=== PATIENT | female | born 1965 | race Caucasian/White ===

== ENCOUNTER 2021-03-05 09:04 | Observation (INO) | payer MEDICARE, MEDICAID, SELFPAY ==
[2021-03-02 12:41] VITALS: BMI 41.5
[2021-03-04] VITALS (16 sets, daily range): BP systolic 130–157; BP diastolic 82–116; PULSE 54–93; RESP 12–20; TEMP 36.2–36.8; O2SAT 90–98; BMI 41.5
--- NOTE | 2021-03-04 08:00 | PM.PREOP ---
Pre-operative Note COVID-19 COVID-19 status: Negative Result date/Date tested (Pos, Neg/Pending): 03/02/21 Interval Note History & Physical reviewed/Exam performed by Physician: Yes Changes to H&P: No
[2021-03-04] MEDS: LACTATED RINGERS 1,000 ML 42 ML IV ×2 (08:19→12:44)
[2021-03-04] MEDS: CEFAZOLIN 1 GM VIAL 2 GM IV ×2 (09:24→16:01)
--- NOTE | 2021-03-04 09:32 | SUR.OPER ---
Prone on spine table, head in foam head support, padded chest and pelvic supports, gel pad at knees, lower legs supported by pillows; nipples, genitalia and toes free of pressure, arms secured on foam padded arm boards at <90 degrees abduction. Tape over blanket at thigh secured to table.
[2021-03-04] MEDS: BUPIVACAINE 0.25% W/ EPI 30 ML VIAL INJ (09:49)
[2021-03-04] MEDS: BUPIVACAINE LIPOSOME 266 MG/20 ML VIAL INJ (09:50)
--- NOTE | 2021-03-04 12:58 | DI.RAD.S_ITS ---
PROCEDURE: XR LUMBAR SPINE 2-3V INDICATIONS: L4-5, L5-S1 TLIF. TECHNIQUE: 3 views of the lumbar spine were acquired. COMPARISON: None. FINDINGS: Spot fluoroscopic intraoperative images demonstrating paraspinal jeimy and pedicle screw fixation from L4-S1. There are interbody cage grafts at L4-L5 and L5-S1. Expected intraoperative alignment. Dictated by: Daniel Bass M.D. on 03/04/2021 at 13:16 Approved by: Daniel Bass M.D. on 03/04/2021 at 13:17
--- NOTE | 2021-03-04 13:00 | P.OP_ITS ---
Operative Date/Time/Diagnoses Date of procedure: 03/04/21 Time of procedure: 08:45 Pre-op diagnosis: 1. L4-5, L5-S1 spondylisthesis 2. L4-5, L5-S1 spinal stenosis with radiculopathy Post-op diagnosis: same Procedure & Clinicians Procedure: 1. L4-5, L5-S1 Postero-lateral and posterior interbody fusion 2. L4-5, L5-S1 interbody cage placement. 3. L4-5, L5-S1 decompressive laminectomy with bilateral facetecomies 4. L4-5, L5-S1 Posterior segmental instrumentation 5. [place] of bone marrow from iliac crest 6. Utilization of microsurgical technique and operating microscope Same procedure as scheduled: No Indications: Patient has been having chronic back pain and worsening lumbar radiculopathy. Patient failed multiple conservative management with worsening pain weakness and numbness in her lower extremity. Patient has been having difficulty performing activity of daily living. After discussing risks benefits of treatment options, patient elected proceed with surgery. Surgeon: Richard Conrad Monumental Stonemason: Yony Reese Click Yes if Unassisted: No Anesthesia Type: General Operative Notes Closure Type: primary Specimen(s): none sent Prosthetic devices, grafts, tissues, transplants, or devices: Globus revolve screws, Rise cages Applied: catheter Estimated Blood Loss (mL): 200 Procedure in detail: Patient was seen in the preoperative area. Risks and benefits of the surgery was discussed with the patient. Informed consent was obtained from the patient and placed in the chart. Surgical site was marked. Patient was taken to the operative room. General anesthesia was administered. Prophylactic antibiotic was given to the patient less than 30 min before the incision was made. Patient was placed into a prone position on the Vaibhav table. Patient's back was then prepped and draped in the sterile fashion. Time- out was performed at this time. Using AP and lateral C-arm imaging the interval between L4-S1 was identified and marked on patient's back. A 2 inch incision 2 in from midline was made on the right side first. The fascia was incised in line with skin incision. Globus MARS retractors was placed inside the incision and docked onto the L4 and L5 lamina. Using microsurgical technique and operating microscope, a L4 and L5 laminectomy and L4-5 L5-S1 facetectomy was performed using a Kerrison rongeur. During the process of decompression more than 75% of bilateral L4-5 L5-S1 facets were removed in order to decompress the spinal canal and the lateral recess. The L4-5 L5-S1 level was grossly unstable after the decompression was completed and requiring the fusion procedure. The disc space at L4-5, L5-S1 was identified. And a total diskectomy was performed at L4-5, L5-S1 level. The endplates were decorticated using a rasp and shaver. The total diskectomy and decortication was performed at L4-5, L5-S1 level in order to to accomplish a L4- 5, L5-S1 fusion. The local bone from the laminectomy and facetectomy was saved for local bone grafting. After the total diskectomy and decortication was completed, Trifecta bone graft material was combined with local bone that was harvested earlier. At this time, a separate skin is incision was made over the iliac crest. A Jamshidi needle was inserted into the iliac crest through a separate skin incision. 5 cc of bone marrow aspiration was obtained through the separate skin incision using a Jamshidi needle from the iliac crest. The bone marrow aspiration was combined with local bone and the Trifecta bone grafting material. The bone grafting material was placed into the L4-5, L5-S1 interbody space along with two cages, one expandable cage at each level. The cages were expanded to their maximum height using the torque limiting screwdriver. At this time a mirror image incision was made on the left side. The fascia was incised in line with the skin incision. Globus MARS retractor was inserted and docked onto the L4-5, L5-S1 posterolateral gutter. Using the power drill, posterior-lateral decortication was performed at L4-5, L5-S1 level until b leeding cortical bone was identified. The remaining bone grafting material was placed into the L4-5 L5-S1 posterior lateral gutter he order to accomplish posterolateral fusion at the L4-5 L5-S1 levels. Using the double C-arm technique, pedicle screws were placed into the L4, L5, S1 pedicles bilaterally. This was done by placing the Jamshidi needle into the pedicles, then placing the guidewires over the Jamshidi needle, and finally placing the cannulated screws over the guidewires bilaterally. After the pedicle screws were placed, 2 titanium rods was locked into the heads of the pedicle screws using locking caps and torque limiting screwdriver. Total 6 pedicles screws were placed. Threaded reducers were used to reduce the patient's spondylolisthesis. An appropriate reduction and maintenance of reduction was accomplished using the hardware placed. After all the hardware was placed, and confirmed with AP and lateral C-arm imaging, the wound was then irrigated with sterile normal saline and packed with Ray-Trudy gauze for 3 min to accomplish hemostasis. After the gauze was removed the deep fascia was closed with #1 Vicryl suture. The subcutaneous layer was closed with 2-0 Vicryl. The skin was closed with skin aashish. Patient tolerated the procedure well. There were no complications. Complications: none Post-operative Condition: stable Disposition: PACU Plan for aftercare: Admit to inpatient hospital
[2021-03-04] MEDS: fentaNYL 100 MCG/2 ML INJ IV ×2 (13:28→13:33)
[2021-03-04] MEDS: LORazepam 2 MG/ML INJ 0.25 MG IV ×2 (13:40→13:41)
[2021-03-04] MEDS: ACETAMINOPHEN 325 MG TABLET 975 MG PO (13:55)
[2021-03-04] MEDS: GABAPENTIN 300 MG CAPSULE PO (13:56)
[2021-03-04] MEDS: OXYCODONE IR 5 MG TABLET 10 MG PO ×3 (13:56→21:01)
[2021-03-04] MEDS: SODIUM CHLORIDE 0.9% 1,000 ML 100 ML IV (16:02)
[2021-03-04] MEDS: HYDROMORPHONE 0.5 MG INJ IV ×2 (17:21→21:05)
[2021-03-04] MEDS: OXYCODONE ER 10 MG TAB 20 MG PO (21:00)
[2021-03-04] MEDS: TRAZODONE 100 MG TABLET 300 MG PO (21:01)
[2021-03-04] MEDS: SENNOSIDES 8.6 MG TABLET 17.2 MG PO (21:01)
[2021-03-04] MEDS: GABAPENTIN 300 MG CAPSULE 600 MG PO (21:01)
[2021-03-04] MEDS: DOCUSATE 100 MG CAPSULE PO (21:01)
[2021-03-04] MEDS: METOPROLOL IR 50 MG TABLET PO (21:01)
[2021-03-05] VITALS (8 sets, daily range): BP systolic 100–124; BP diastolic 50–79; PULSE 60–84; RESP 14–18; TEMP 36.2–38.2; O2SAT 92–98
[2021-03-05] MEDS: SODIUM CHLORIDE 0.9% 1,000 ML 100 ML IV (00:35)
[2021-03-05] MEDS: CEFAZOLIN 1 GM VIAL 2 GM IV (00:35)
[2021-03-05] MEDS: HYDROMORPHONE 0.5 MG INJ IV ×2 (00:56→15:48)
[2021-03-05 06:33] LABS: Hematocrit 41.5 % (36-46); Hemoglobin 13.4 g/dL (12.0-16.0)
--- NOTE | 2021-03-05 08:16 | PM.PNPO.1 ---
Subjective Subjective Date Patient Seen: 03/05/21 Time Patient Seen: 08:17 Interval history: Patient states her pain is currently mild. Had more moderate to severe pain late last night early this morning. No fever, chills. No nausea, vomiting. Denies being short of breath or having any chest pain. Exam Vital Signs (past 8 hours): - 03/05/21 00:50 03/05/21 05:57 Temperature 97.9 F 97.5 F L Pulse Rate 80 75 Respiratory Rate 18 16 Blood Pressure 119/79 116/76 Pulse Oximetry 95 96 Oxygen Delivery Method Nasal Cannula Oxygen Flow Rate 4 Narrative Exam Narrative: 55-year-old female resting comfortably in no apparent distress. BMI is 41.5. Patient is drowsy and falls back to sleep easily. She does stay awake long enough to answer questions. Lumbar dressing is Clean, dry, intact.. Motor functions intact bilateral lower extremities. Sensation grossly intact to light touch bilateral lower extremities. Const Nutritional Appearance: obese Objective Labs Result Diagrams: 03/05/21 06:05 Labs: Laboratory Results - last 24 hr 03/05/21 06:05 Hgb 13.4 Hct 41.5 PFSH Medical History Arthritis BMI 40.0-44.9, adult Depression HTN (hypertension) Obesity KEVIN (obstructive sleep apnea) Panic attacks Spinal stenosis Surgical History History of surgery History of surgery Hx of cholecystectomy Social History household members: family Smoking Status: Current every day smoker alcohol intake: current Assessment & Plan Post-op Postoperative Procedures: Procedures Operation Date: 03/04/21 08:45 Actual Procedure Side Surgeon p L4-5, L5-S1 TLIF with posterior instrumentation Richard Conrad MD Postoperative day: 1 Postoperative status narrative: Patient's stable status post L4-L5, L5-S1 fusion Postoperative plan: routine post-op care Postoperative plan narrative: Mobilize with physical therapy. Limit bending, twisting, lifting. Patient is rather drowsy this morning likely due to pain meds. She has not yet had therapy. Continue Guerra until she is more mobile. With history of sleep apnea and currently on 4 L of oxygen per nasal cannula respiratory consultation has been ordered. Disposition home 1-2 days. Quality VTE Deep Vein Thrombosis/Pulmonary Embolism Present on Admission: No
--- NOTE | 2021-03-05 09:44 | PC.NURSE ---
Pt is very sleepy this am. She opens her eyes when her name is called and makes eye contact but is quickly back to sleep. She is on 3L O2 via nasal cannula with O2 sats 96%. Her daughter does report a history of known sleep apnea. Narcotic pain medications are held this am until pt is more awake.
--- NOTE | 2021-03-05 10:25 | PT.IIE ---
Current Diagnoses Spondylolisthesis, lumbar region (03/05/21) Other spondylosis with radiculopathy, lumbosacral region (03/05/21) Spinal stenosis, lumbar region without neurogenic claudication (03/05/21) Surgery Performed Operation Date: 03/04/21 08:45 Actual Procedures p L4-5, L5-S1 TLIF with posterior instrumentation - Richard Conrad MD Medical History (Last Reviewed 03/05/21 @ 08:20 by Neville Berrios PA-C) Arthritis BMI 40.0-44.9, adult Depression HTN (hypertension) Obesity KEVIN (obstructive sleep apnea) Panic attacks Spinal stenosis Physical Therapy Inpatient Evaluation/Re-Eval M1 PT/OT-IP Prior Functional Status Start: 03/05/21 12:18 Freq: NEEDED Status: Active Protocol: Document 03/05/21 10:25 AB (Rec: 03/05/21 12:27 AB [id number]) Medical Review Prior Functional Status Medical History Reviewed Yes Communication pt is lethargic and unable to respond to questions Mobility and Gait unable to obtain info Social History Additional Social History Comment pt is very lethargic and unable to answer questions M2 PT-IP Current Condition Start: 03/05/21 12:18 Freq: NEEDED Status: Active Protocol: Document 03/05/21 10:25 AB (Rec: 03/05/21 12:27 AB [email or web address]) Physical Therapy Current Condition Current Condition Evaluation Date 03/05/21 Treatment Diagnosis s/p L4-5, L5S1 fusion/lami; difficulty in walking Onset Date 03/04/21 Precautions Lumbar Precautions Log Roll,No Twisting,Limit Bending,Lifting Restriction of 10 lbs,Gait Belt above Incisional Area Other Precautions falls M3 PT-IP Subjective Start: 03/05/21 12:18 Freq: NEEDED Status: Active Protocol: Document 03/05/21 10:25 AB (Rec: 03/05/21 12:27 AB [email or web address]) Subjective Physical Therapy Visit Type Type Initial Evaluation Visit Start Time 10:25 Visit Stop Time 10:55 Total Visit Minutes 30 Notes nurse informed PT that pt is lethargic but was not given any pain meds from this morning to cause drowsiness. Number of MEDICAL EDUCATION COORDINATOR Visits 0 M4 PT-IP Mobility and Gait Start: 03/05/21 12:18 Freq: NEEDED Status: Active Protocol: Document 03/05/21 10:25 AB (Rec: 03/05/21 12:27 AB [email or web address]) PT-Bed Mobility Assessment Rolling Type of Rolling Log Rolling Level of Assist Maximal Assistance,2 Person Assistance Supine to Sit Supine to Sit Total Assistance,Bedrails Sit to Supine Sit to Supine Total Assistance,2 Person Assistance Scooting Scooting to Edge of Bed Dependent Scooting Up and Down in Bed Dependent PT-Transfer Assessment Comments Mobility Comments checked on pt and pt is lethargic. can open eyes as directed but unable to answer questions. Attempted to mobilize pt to prevent deconditioning. BP in supine: 98/52. nurse is aware. NAC in room to assist. completed log roll supine to sit total Ax 2 and max cues. pt was able to sit on EOB max A x 1-2 and max cues. BP in sittin/57. pt unable to sit by herself and continues to be lethargic. Tolerated ~ 5 min of sitting on EOB. assisted back to bed. total Ax 2 for sit to supine log roll. positioned pt in bed total A x 2 and max cues. call light and table placed within reach. PT-Balance Assessment Sitting Balance and Reactions Static Sitting Balance Ability Poor Dynamic Sitting Balance Ability Poor Standing Balance and Reactions Device Used n/t M5 PT-IP Objective Assessments Start: 03/05/21 12:18 Freq: NEEDED Status: Active Protocol: Document 03/05/21 10:25 AB (Rec: 03/05/21 12:27 AB [email or web address]) Orientation Orientation/Cognition Level of Alertness Lethargic Gross Range of Motion Lower Extremity ROM Assessment Within Functional Limits Muscle Tone Muscle Tone WNL Yes M6 PT-IP Treatment Start: 03/05/21 12:18 Freq: NEEDED Status: Active Protocol: Document 03/05/21 10:25 AB (Rec: 03/05/21 12:27 AB [email or web address]) Physical Therapy Treatment Education Education Provided Precautions,Safety M7 PT-IP Assessment and Plan Start: 03/05/21 12:18 Freq: NEEDED Status: Active Protocol: Document 03/05/21 10:25 AB (Rec: 03/05/21 12:27 AB [email or web address]) PT Summary Assessment and Plan Potential Rehabilitation Potential Fair Status of Condition at Evaluation Evolving Summary Impairments Pain,ROM,Strength,Balance, Coordination,Sensation,Tone, Cognition,Bed Mobility, Transfers,Gait,Activity Tolerance Assessment Summary pt is letheragic and unable to participate much with PT. will need further assessment to determine safe d/c plan. Goals Bed Mobility Goal Standby Assistance Transfer Goal Standby Assistance,Front Wheeled Walker Gait Goal Standby Assistance,Front Wheel Walker Gait Distance 150 Days to Meet Goals 5 Frequency of Treatment Frequency Of Treatment Twice a Day Treatment Plan Physical Therapy Treatment Plan Bed Mobility Training,Transfer Training,Gait Training, Therapeutic Exercise,Balance Retraining,Post Op Education, Discharge Planning,Hot or Cold Pack,Neuromuscular Re-ed, Coordination Retraining,Manual Therapy Precautions Lumbar Precautions Log Roll,No Twisting,Limit Bending,Lifting Restriction of 10 lbs,Gait Belt above Incisional Area Recommendations To Nursing Amount of Assist Needed PT/OT Assist Only,Mechanical Lift Discharge Recommendations PT Discharge Recommendations SNF Rehab,Home vs SNF Transportation Needs at Discharge Wheelchair/Cabulance,Stretcher /Ambulance
[2021-03-05] MEDS: VENLAFAXINE ER 75 MG CAP 112.5 MG PO (11:07)
--- NOTE | 2021-03-05 11:20 | CM.DANOTE ---
DCP: Case received, EMR reviewed and met with patient. DaughterDanay was in the room, as well as grandsonJimmy. Introduced self and role. Patient had just woken up. Was able to get some information regarding patient's baseline activity status prior to her surgery, as well as her current living situation. DCP assessment completed with information currently available. Patient is a 55 year old female who admitted yesterday morning to the care of the orthopedic team. PCP: Dr. Morales. Payer: confirmed: [facility]/Medicaid. Patient came to the hospital via private vehicle for a surgical procedure. She had posteo lateral and posterior interbody fusion secondary to history of chronic back pain. Patient also has chronic leg pain as well. Was able to meet with patient, and daughterElizabeth and grandson Jimmy, who were at bedside. Patient had been sleeping most of the morning, and had just woken up. Confirmed that patient resides in [place] with grandJimmy benitez, but also lives in [place]. She is independent at her baseline. She has not yet worked with P.T. P: DCP to continue to follow. Plan is for patient to discharge home when medically stable, could be tomorrow, and after she is cleared by P.T. She had not yet worked with P.T. as of yet, due to some sedation. Liliana Sanchez RN/Fleet Maintenance Foreman
--- NOTE | 2021-03-05 11:23 | OT.IPNOTE ---
Attempted to see pt for OT eval, per nursing pt still not very alert so would be best to check on pt in PM.
--- NOTE | 2021-03-05 13:10 | PT.IPTN ---
Current Diagnoses Spondylolisthesis, lumbar region (03/05/21) Other spondylosis with radiculopathy, lumbosacral region (03/05/21) Spinal stenosis, lumbar region without neurogenic claudication (03/05/21) Surgery Performed Operation Date: 03/04/21 08:45 Actual Procedures p L4-5, L5-S1 TLIF with posterior instrumentation - Richard Conrad MD Physical Therapy Treatment Note M1 PT/OT-IP Prior Functional Status Start: 03/05/21 12:18 Freq: NEEDED Status: Active Protocol: Document 03/05/21 13:10 AB (Rec: 03/05/21 14:54 AB [email or web address]) Medical Review Prior Functional Status Medical History Reviewed Yes Communication able to make needs known but continues to require cues to stay awake Mobility and Gait pt stated that she is independent with all mobilities and ambulation without AD Social History Household Members family Living Arrangements House Number of Floors (Floors) One Floor Number of Stairs To Enter/Railing? 3 steps R rail ascending to enter Home Environment High Toilet,Walk in Shower Home Equipment Front Wheel Walker,Four Wheel Walker,Hand Held Shower,Grab Bars Near Toilet,Grab Bars In Shower Additional Social History Comment pt stated that her son and mom will be able to assist her but there are family living close by that can also assistM2 PT-IP Current Condition Start: 03/05/21 12:18 Freq: NEEDED Status: Active Protocol: Document 03/05/21 10:25 AB (Rec: 03/05/21 12:27 AB [email or web address]) Physical Therapy Current Condition Current Condition Evaluation Date 03/05/21 Treatment Diagnosis s/p L4-5, L5S1 fusion/lami; difficulty in walking Onset Date 03/04/21 Precautions Lumbar Precautions Log Roll,No Twisting,Limit Bending,Lifting Restriction of 10 lbs,Gait Belt above Incisional Area Other Precautions falls M3 PT-IP Subjective Start: 03/05/21 12:18 Freq: NEEDED Status: Active Protocol: Document 03/05/21 13:10 AB (Rec: 03/05/21 14:54 AB [email or web address]) Subjective Physical Therapy Visit Type Type Treatment Note Visit Start Time 13:10 Visit Stop Time 13:46 Total Visit Minutes 36 Number of CONCRETE FLOAT MAKER Visits 0 Physical Therapy Visit Comments Patient Comments pt is agreeable to do PT; acknowledge that the meds are making her drowsy Therapy Pain Assessment Pain When Pain Assessed At Rest Pain Present Pain Present Pain Reported Location back Intensity 10 Scale Used Numeric (0 - 10) Pain Behaviors Facial Grimacing,Guarding Pain Management Techniques Apply Cold,Distraction, Modification of Treatment,Re- positioning,Timing of Activity with Medications M4 PT-IP Mobility and Gait Start: 03/05/21 12:18 Freq: NEEDED Status: Active Protocol: Document 03/05/21 13:10 AB (Rec: 03/05/21 14:54 AB [id number]) PT-Bed Mobility Assessment Rolling Type of Rolling Log Rolling Level of Assist Maximal Assistance Supine to Sit Supine to Sit Maximum Assistance,1 Person Assistance,2 Person Assistance ,Bedrails Scooting Scooting to Edge of Bed Maximum Assistance PT-Transfer Assessment Sit to and From Stand Sit to and from Stand Maximum Assistance,2 Person Assistance,Use of Upper Extremities Equipment Transfer Assistive Device Gait Belt,Front Wheeled Walker Orthotic/Prosthetic Devices or Brace: No Transfers Transfer Destination Chair Transfer Technique Stand Step Pivot Transfer Ability Level of Assist Maximum Assistance,2 Person Assistance,Use of Upper Extremities Comments Mobility Comments educated pt on back precautions and log roll bed mobility. pt continues to be lethargic but better than this morning. able to keep eyes open when instructed but inconsistent with following directions and has decrease safety awareness. BP supine: 96/68. completed log roll bed mobility supine to sit max A and max cues. pt was able to sit on EOB mod A and max cues. completed sit to stand max A x 2 and max cues. pt is impulsive and has difficulty followin direction saffecting safety and assistance level. pt stated that she is dizzy. instructed pt to sit back on chair but started to take a step forward . instructed again and assisted to sit down max A. BP checked: 121/66. completed sit to stand again max A x 2 and max cues and completed step transfer to chair max A x 2 and max cues. increase lateral trunk lean to R and pt crossing legs when taking steps. assisted to chair. positioned on chair. call light and table placed within reach. informed NAC regarding moibliyt assistance and need for a chair alarm. Gait Assessment Comments Gait Comments not completed PT-Balance Assessment Sitting Balance and Reactions Static Sitting Balance Ability Fair Dynamic Sitting Balance Ability Poor Standing Balance and Reactions Static Standing Balance Ability Poor Dynamic Standing Balance Ability Poor Device Used FWW M5 PT-IP Objective Assessments Start: 03/05/21 12:18 Freq: NEEDED Status: Active Protocol: Document 03/05/21 13:10 AB (Rec: 03/05/21 14:54 AB [email or web address]) Orientation Orientation/Cognition Level of Alertness Confusional State Orientation Name Language Function Ability No Deficits Noted Safety Awareness Decreased Safety Awareness Memory Description 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,Correction Impaired Gross Range of Motion Lower Extremity ROM Assessment Within Functional Limits Strength Lower Extremity Strength Assessment Bilaterally Impaired Hip 3-/5 Knee RLE: 3+/5 LLE: 3-/5 M6 PT-IP Treatment Start: 03/05/21 12:18 Freq: NEEDED Status: Active Protocol: Document 03/05/21 13:10 AB (Rec: 03/05/21 14:54 AB [email or web address]) Physical Therapy Treatment Education Education Provided Precautions,Weight Bearing Status,Post-Op Packet,Safety M7 PT-IP Assessment and Plan Start: 03/05/21 12:18 Freq: NEEDED Status: Active Protocol: Document 03/05/21 13:10 AB (Rec: 03/05/21 14:54 AB [email or web address]) PT Summary Assessment and Plan Summary Impairments Pain,ROM,Strength,Balance, Coordination,Sensation,Tone, Cognition,Bed Mobility, Transfers,Gait,Activity Tolerance Progress Towards Goals Slow Progress due to Pain,Slow Progress due to Activity Tolerance,Slow Progress - Other Assessment Summary pt requiring 2 person max A with transfer using FWW. pt continues to be lethargic affecting safety awareness and following directions. will continue to assess progress and caregiver training will be completed when appropriate as well as stair climbing training. at this time, pt may require SNF rehab. Goals Bed Mobility Goal Standby Assistance Transfer Goal Standby Assistance,Front Wheeled Walker Gait Goal Standby Assistance,Front Wheel Walker Gait Distance 150 Other Goals up/down 3 steps R rail ascending SBA Days to Meet Goals 5 Frequency of Treatment Frequency Of Treatment Twice a Day Treatment Plan Physical Therapy Treatment Plan Bed Mobility Training,Transfer Training,Gait Training, Therapeutic Exercise,Balance Retraining,Post Op Education, Discharge Planning,Hot or Cold Pack,Neuromuscular Re-ed, Coordination Retraining,Manual Therapy Precautions Lumbar Precautions Log Roll,No Twisting,Limit Bending,Lifting Restriction of 10 lbs,Gait Belt above Incisional Area Recommendations To Nursing Amount of Assist Needed 2 Person Assist Discharge Recommendations PT Discharge Recommendations Home with 07/02 Assist Available,Home Health,SNF Rehab,Home vs SNF Transportation Needs at Discharge Private Vehicle,Wheelchair/ Cabulance
--- NOTE | 2021-03-05 14:16 | CM.DPC ---
DCP Cont: P.T. noted that patient is max assist, but had been somewhat sedated when they attempted to work with her. Patient is currently sitting up in her chair. Nurse, Misti, has been doing some teaching with patient regarding her pain medications, and stated, it's most likely her meds.Her medications will be adjusted, and will see how she does with therapy there after. P: DCP to continue to follow closely. Patient will have her medications adjusted, and see if she shows improvement in her ambulation. At this time, home is the plan with family. Liliana Sanchez RN/Speed Operator
--- NOTE | 2021-03-05 14:25 | OT.IPNOTE ---
Attempted to see pt for OT eval. Pt just worked with PT earlier and feels too tired and states would rather do OT eval tomorrow as still not thinking well. Therefore to see pt tomorrow for OT eval.
[2021-03-05] MEDS: OXYCODONE IR 5 MG TABLET 10 MG PO ×2 (15:48→20:38)
[2021-03-05] MEDS: GABAPENTIN 300 MG CAPSULE 600 MG PO ×2 (15:48→20:39)
[2021-03-05] MEDS: DOCUSATE 100 MG CAPSULE PO (20:39)
[2021-03-05] MEDS: OXYCODONE ER 10 MG TAB 20 MG PO (20:39)
[2021-03-05] MEDS: SENNOSIDES 8.6 MG TABLET 17.2 MG PO (20:39)
[2021-03-05] MEDS: METOPROLOL IR 50 MG TABLET PO (20:39)
[2021-03-05] MEDS: TRAZODONE 100 MG TABLET 300 MG PO (20:41)
[2021-03-06] VITALS (8 sets, daily range): BP systolic 98–147; BP diastolic 63–83; PULSE 56–82; RESP 16–19; TEMP 36.3–36.9; O2SAT 88–95
[2021-03-06] MEDS: OXYCODONE IR 5 MG TABLET 10 MG PO ×2 (05:36→13:35)
[2021-03-06] MEDS: ACETAMINOPHEN 325 MG TABLET 650 MG PO (05:37)
--- NOTE | 2021-03-06 07:32 | P.DS_ITS ---
History of Present Illness History of Present Illness Date Patient Seen: 03/06/21 Time Patient Seen: 07:32 Chief complaint: Low back pain Narrative: The patient is complaining of [id number] low back pain this morning, which is well controlled with current pain regimen. She denies any fevers chills, chills, night sweats. She denies any numbness or tingling in bilateral lower extremities. She is working with physical therapy but will need at least 2 sessions of therapy today. Overall, she is feeling well and would like to go home today. She was noted to have some difficulty breathing and would benefit from a working with her primary care and possibly a sleep study after discharge Discharge Providers Provider Date of admission: 03/05/21 09:04 Discharge Date: 03/06/21 Consults: 03/04/21 06:00 Consult to Anesthesiology Routine Comment: Consulting Provider: Anesthesiologist Reason for consultation: Regional block for post operative pain control 03/04/21 15:25 Consult to Occupational Therapy Evaluate & Treat Comment: Physician Instructions: Evaluate and treat Consult to Physical Therapy Evaluate & Treat Comment: Physician Instructions: Evaluate and Treat 03/05/21 07:47 Consult to Respiratory Therapy Evaluate & Treat Comment: increased labor of breathing while sleeping Physician Instructions: Evaluate and treat Discharge provider: Angelina Terry PA-C Summary Hospital Course Discharge Diagnosis: 1. L4-5, L5-S1 spondylisthesis 2. L4-5, L5-S1 spinal stenosis with radiculopathy Hospital Course: Procedure: 1. L4-5, L5-S1 Postero-lateral and posterior interbody fusion 2. L4-5, L5-S1 interbody cage placement. 3. L4-5, L5-S1 decompressive laminectomy with bilateral facetecomies 4. L4-5, L5-S1 Posterior segmental instrumentation 5. [place] of bone marrow from iliac crest 6. Utilization of microsurgical technique and operating microscope Same procedure as scheduled: No Indications: Patient has been having chronic back pain and worsening lumbar radiculopathy. Patient failed multiple conservative management with worsening pain weakness and numbness in her lower extremity. Patient has been having difficulty performing activity of daily living. After discussing risks benefits of treatment options, patient elected proceed with surgery. Surgeon: Richard Conrad Cut Out Press Operator: Yony Reese Click Yes if Unassisted: No Anesthesia Type: General Operative Notes Closure Type: primary Specimen(s): none sent Prosthetic devices, grafts, tissues, transplants, or devices: Globus revolve screws, Rise cages Applied: catheter Estimated Blood Loss (mL): 200 Status at Discharge Cognitive/behavioral status at discharge: oriented Functional status at discharge: uses cane/walker Overall status at discharge: patient is progressing back to baseline Exam Vital Signs (past 8 hours): - 03/06/21 00:20 03/06/21 05:57 Temperature 98.4 F 97.3 F L Pulse Rate 82 71 Respiratory Rate 18 18 Blood Pressure 141/79 H 147/80 H Pulse Oximetry 93 94 Oxygen Delivery Method Nasal Cannula Oxygen Flow Rate 2 Narrative Exam Narrative: Pleasant 56-year-old female lying comfortably in bed, no acute distress. Incision has mild dry drainage, otherwise intact. Bilateral lower extremities with normal motor functions, sensation is also grossly intact to light touch in bilateral lower extremities. Both legs are warm and dry. Bilateral calves are soft, nontender to palpation. Objective Labs Result Diagrams: 03/05/21 06:05 [facility] Medical History Arthritis BMI 40.0-44.9, adult Depression HTN (hypertension) Obesity KEVIN (obstructive sleep apnea) Panic attacks Spinal stenosis Surgical History History of surgery History of surgery Hx of cholecystectomy Social History household members: family Smoking Status: Current every day smoker alcohol intake: current Discharge Assessment & Plan Assessment and Plan Assessment: Patient is progressing as expected status post lumbar fusion Plan of Treatment: Weight-bearing as tolerated, limit bending, twisting, lifting. The patient was given a prescription of oxycodone and Tylenol for pain. The plan is to discharge home today after her 2nd physical therapy session, once cleared by physical therapist. I did recommend the patient follow-up with her primary care regarding her breathing issues. And possibly a sleep study after discharge. Discharge Plan Discharge Plan Patient Disposition: Home Provider Discharge Comment: Discharge home after 2 physical therapy sessions, when cleared by PT Discharge orders & Medications Prescriptions: New acetaminophen 325 mg Tablet 650 mg PO Q6HR PRN (Reason: Pain, Mild (1-3)) Qty: 90 RF: 0 oxycodone 5 mg Tablet 10 mg PO Q3HR PRN (Reason: Pain, Severe (7-10)) Qty: 42 RF: 0 Continued trazodone 300 mg Tablet 300 mg PO BID RF: 0 oxycodone 10 mg Tablet 10 mg PO Q4H RF: 0 venlafaxine 225 mg Tablet Extended Release 24hr 112.5 mg PO DAILY RF: 0 gabapentin 300 mg Capsule 600 mg PO TID RF: 0 metoprolol tartrate 50 mg Tablet 50 mg PO BID RF: 0 famotidine [Pepcid] 40 mg Tablet 40 mg PO BEDTIME PRN (Reason: Heartburn) RF: 0 Follow up/Referrals: Richard Conrad MD [Physician] - (Follow-up as scheduled for your postoperative visit in approximately 2 weeks. Please call the office with any questions or concerns.) Discharge Health Status Health Concerns: Please work with your PCP. You were noted to have difficulty breathing while sleeping at the hospital, you may need a sleep study after your discharge from the hospital. Diet/Activity/Treatments Diet: Diet as Tolerated and Regular Activity: Weightbearing as tolerated with front wheeled walker. Limit bending, lifting, twisting. Cold/Heat Therapy: Use ice as needed for pain Skin/Wound/Dressing Care Report to your healthcare provider any signs of infection, such as:: chills, fever, night sweats, unusual drainage and unusual redness Dressing: Change dressing when saturated or an increase in drainage. You may shower, but no soaking or submerging or ointment over the incision. Please change dressing after shower Visit Report/Discharge Packet Instructions: DI for Prescription Opioid Use, DI for Transforaminal Lumbar Interbody Fusion Stand Alone Forms: Surgery Discharge Discharge Data Attending Provider: Richard Conrad Quality VTE Deep Vein Thrombosis/Pulmonary Embolism Present on Admission: No
[2021-03-06] MEDS: GABAPENTIN 300 MG CAPSULE 600 MG PO ×2 (09:04→15:08)
[2021-03-06] MEDS: DOCUSATE 100 MG CAPSULE PO (09:04)
[2021-03-06] MEDS: SODIUM CHLORIDE 0.9% FLUSH 10 ML IV (09:05)
[2021-03-06] MEDS: METOPROLOL IR 50 MG TABLET PO (09:05)
--- NOTE | 2021-03-06 10:41 | PT.IPTN ---
Current Diagnoses Spondylolisthesis, lumbar region (03/05/21) Other spondylosis with radiculopathy, lumbosacral region (03/05/21) Spinal stenosis, lumbar region without neurogenic claudication (03/05/21) Surgery Performed Operation Date: 03/04/21 08:45 Actual Procedures p L4-5, L5-S1 TLIF with posterior instrumentation - Richard Conrad MD Physical Therapy Treatment Note M2 PT-IP Current Condition Start: 03/05/21 12:18 Freq: NEEDED Status: Active Protocol: Document 03/05/21 10:25 AB (Rec: 03/05/21 12:27 AB [email or web address]) Physical Therapy Current Condition Current Condition Evaluation Date 03/05/21 Treatment Diagnosis s/p L4-5, L5S1 fusion/lami; difficulty in walking Onset Date 03/04/21 Precautions Lumbar Precautions Log Roll,No Twisting,Limit Bending,Lifting Restriction of 10 lbs,Gait Belt above Incisional Area Other Precautions falls M3 PT-IP Subjective Start: 03/05/21 12:18 Freq: NEEDED Status: Active Protocol: Document 03/06/21 10:41 AB (Rec: 03/06/21 11:32 AB [email or web address]) Subjective Physical Therapy Visit Type Type Treatment Note Visit Start Time 10:41 Visit Stop Time 11:06 Total Visit Minutes 25 Number of WOODEN 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 0 Physical Therapy Visit Comments Patient Comments pt agreed to do PT; continues to requires max cues to stay awake to participate Therapy Pain Assessment Pain When Pain Assessed During Mobility Pain Present Pain Present Pain Reported Location back Scale Used pain scale not stated Pain Management Techniques Modification of Treatment,Re- positioning,Timing of Activity with Medications M4 PT-IP Mobility and Gait Start: 03/05/21 12:18 Freq: NEEDED Status: Active Protocol: Document 03/06/21 10:41 AB (Rec: 03/06/21 11:32 AB [id number]) PT-Bed Mobility Assessment Rolling Type of Rolling Log Rolling Level of Assist Minimal Assistance Supine to Sit Supine to Sit Minimal Assistance,Bedrails Sit to Supine Sit to Supine Minimal Assistance,Bedrails PT-Transfer Assessment Sit to and From Stand Sit to and from Stand Minimal Assistance,1 Person Assistance,Use of Upper Extremities Equipment Transfer Assistive Device Gait Belt,Front Wheeled Walker Orthotic/Prosthetic Devices or Brace: No Transfers Transfer Destination Bed,Chair Transfer Technique ambulated using FWW Transfer Ability Level of Assist Minimal Assistance,Moderate Assistance,1 Person Assistance ,Use of Upper Extremities Comments Mobility Comments pt sitting on chair and appears lethargic but able to answer questions and open her eyes on command. completed sit to stand from chair x 2 attempts min A and max cues. pt has decrease safety awareness and requires one step max cues with all tasks with pt closing eyes and appears to be dozing off in between tasks. ambulated ~ 15 ft FWW min A and sat on EOB. presents with unstead gait with narrow JELENA. pt ambulated 15 ft x 3 reps in room max cues and min A with FWW. (+) LOB to the R with increase lateral lean requiring mod A for recovery and max cues. completed sit <>stand x 3 reps min A and max cues but with several attempts at pt tends to doze off in between tasks and is not aware of safety. bed mobilty training: completed sit<>supine min A and max cues. pt used bed rail for support. stated that her mom ordered a bed cane for her to use. pt ambulated back to chair using FWW min to mod A and cues. positioned on chair. call light and table placed within reach. informed nurse Shelia and case consultant Amy that pt is not safe to go home today. Gait Assessment Gait Gait Assistance Required: Minimum Assistance,Moderate Assistance,1 Person Assist Distance (Feet) 15 Able to Maintain Weight Bearing Status Yes During Gait Assistive Devices Assistive Device Gait Belt,Front Wheeled Walker Orthotic/Prosthetic Devices or Brace: No Gait Deviations General Gait Pattern Ataxic,Decreased Stride Length ,Decreased Feet Clearance, Narrow Based Gait,Step-to Gait Factors Limiting Gait Function Factors Limiting Gait Function Decreased Activity Tolerance, Decreased Strength,Difficulty Following Directions,Limited Range of Motion,Pain,Poor Balance,Poor Safety Awareness Comments Gait Comments pls refer to mobility section for details M5 PT-IP Objective Assessments Start: 03/05/21 12:18 Freq: NEEDED Status: Active Protocol: Document 03/05/21 13:10 AB (Rec: 03/05/21 14:54 AB [id number]) Orientation Orientation/Cognition Level of Alertness Confusional State Orientation Name Language Function Ability No Deficits Noted Safety Awareness Decreased Safety Awareness Memory Description 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,[place]man Impaired Gross Range of Motion Lower Extremity ROM Assessment Within Functional Limits Strength Lower Extremity Strength Assessment Bilaterally Impaired Hip 3-/5 Knee RLE: 3+/5 LLE: 3-/5 M6 PT-IP Treatment Start: 03/05/21 12:18 Freq: NEEDED Status: Active Protocol: Document 03/06/21 10:41 AB (Rec: 03/06/21 11:32 AB [email or web address]) Physical Therapy Treatment Education Education Provided Precautions,Safety M7 PT-IP Assessment and Plan Start: 03/05/21 12:18 Freq: NEEDED Status: Active Protocol: Document 03/06/21 10:41 AB (Rec: 03/06/21 11:32 AB [email or web address]) PT Summary Assessment and Plan Potential Rehabilitation Potential Good Summary Impairments Pain,ROM,Strength,Balance, Coordination,Sensation,Tone, Cognition,Bed Mobility, Transfers,Gait,Activity Tolerance Progress Towards Goals Slow Progress due to Pain,Slow Progress due to Activity Tolerance,Slow Progress - Other Assessment Summary pt was able to tolerate more mobility today but still unable to do much requiring rest breaks in between tasks. pt also has decrease level of alertness and requires constant cues to keep eyes open and stay awake to participate. pt has decrease safety awareness and requires step by step instructions to complete all tasks. pt is not safe to go home today. will need to conduct caregiver training and stair climbing training when appropriate. nurse and case consultant made aware that pt is not safe to home at this time. Goals Bed Mobility Goal Standby Assistance Transfer Goal Standby Assistance,Front Wheeled Walker Gait Goal Standby Assistance,Front Wheel Walker Gait Distance 150 Other Goals up/down 3 steps R rail ascending SBA Days to Meet Goals 5 Frequency of Treatment Frequency Of Treatment Twice a Day Treatment Plan Physical Therapy Treatment Plan Bed Mobility Training,Transfer Training,Gait Training, Therapeutic Exercise,Balance Retraining,Post Op Education, Discharge Planning,Hot or Cold Pack,Neuromuscular Re-ed, Coordination Retraining,Manual Therapy Precautions Lumbar Precautions Log Roll,No Twisting,Limit Bending,Lifting Restriction of 10 lbs,Gait Belt above Incisional Area Recommendations To Nursing Amount of Assist Needed 2 Person Assist Discharge Recommendations PT Discharge Recommendations Home with 24/ Assist Available,Home Health,SNF Rehab,Home vs SNF Transportation Needs at Discharge Private Vehicle,Wheelchair/ Cabulance
--- NOTE | 2021-03-06 11:27 | CM.DPC ---
DCP: continued: case received, discussed in Team Rounds and d/c order noted: per ortho PA Angelina Terry with addendum IF cleared by PT. Checked in briefly with pt as she was being cared for by KEREN Long and attempting to work with OT but appeared very groggy and unfocused. Have spoken now with KEREN Hurtado, caring for pt, the RN coordinator Viraj and PT/Sherlyn and OT/Luh. KEREN Bass says that pt's home medications have now been reconciled with corrected doses now in place. She says this likely is explaining pt's extreme drowsiness and inability to do make progress with therapy. Angelina's cell # is provided to Shelia who plans to update her. A cancellation of the d/c for today is anticipated. Note that [facility] is payer. Admission status is SDC and then to OBS: confirmed by UR RN team. Pt is expected to d/c to home with family and caregiver training plus stairs is planned once pt is mentally clearer and able to focus on this. Will be following.
--- NOTE | 2021-03-06 12:48 | PT.IPTN ---
Current Diagnoses Spondylolisthesis, lumbar region (03/05/21) Other spondylosis with radiculopathy, lumbosacral region (03/05/21) Spinal stenosis, lumbar region without neurogenic claudication (03/05/21) Surgery Performed Operation Date: 03/04/21 08:45 Actual Procedures p L4-5, L5-S1 TLIF with posterior instrumentation - Richard Conrad MD Physical Therapy Treatment Note M2 PT-IP Current Condition Start: 03/05/21 12:18 Freq: NEEDED Status: Active Protocol: Document 03/05/21 10:25 AB (Rec: 03/05/21 12:27 AB [email or web address]) Physical Therapy Current Condition Current Condition Evaluation Date 03/05/21 Treatment Diagnosis s/p L4-5, L5S1 fusion/lami; difficulty in walking Onset Date 03/04/21 Precautions Lumbar Precautions Log Roll,No Twisting,Limit Bending,Lifting Restriction of 10 lbs,Gait Belt above Incisional Area Other Precautions falls M3 PT-IP Subjective Start: 03/05/21 12:18 Freq: NEEDED Status: Active Protocol: Document 03/06/21 12:48 AB (Rec: 03/06/21 13:53 AB [email or web address]) Subjective Physical Therapy Visit Type Type Treatment Note Visit Start Time 12:48 Visit Stop Time 13:34 Total Visit Minutes 46 Number of JEWEL BEARING DRILLER Visits 0 Physical Therapy Visit Comments Patient Comments pt is agreeable to do PT; son and daughter in room Therapy Pain Assessment Pain When Pain Assessed During Mobility Pain Present Pain Present Pain Reported Location back Scale Used pain scale not stated Pain Management Techniques Distraction,Modification of Treatment,Re-positioning, Timing of Activity with Medications M4 PT-IP Mobility and Gait Start: 03/05/21 12:18 Freq: NEEDED Status: Active Protocol: Document 03/06/21 12:48 AB (Rec: 03/06/21 13:53 AB [email or web address]) PT-Bed Mobility Assessment Rolling Level of Assist Maximal Assistance Supine to Sit Supine to Sit Minimal Assistance Sit to Supine Sit to Supine Minimal Assistance PT-Transfer Assessment Sit to and From Stand Sit to and from Stand Minimal Assistance Equipment Transfer Assistive Device Front Wheeled Walker Orthotic/Prosthetic Devices or Brace: No Transfers Transfer Destination Bed,Chair Transfer Technique ambulated Transfer Ability Level of Assist Minimal Assistance,1 Person Assistance,Use of Upper Extremities Comments Mobility Comments pt continues to have decrease level of alertness and requires max cues with all tasks and constant cues to complete tasks. educated son and daughter regarding pt's back precautions, log roll bed mobility, safety belt use and how to assist pt. pt completed sit to stand from the chair min A and max cues. repeated x 2 and instructed son on how to cue pt. son was able to assist pt but needs instructions on how to cue pt. pt ambulated ~ 15 ft using FWW min A. pt tends to cross legs and presents with unsteady dragging gait. instructed son to instruct pt to keep feet apart, upright posture and LE steadiness. pt completed sit to supine using bed rail min A with LE elevation but max A to log roll on her back with c/o increase back pain. pt is dozing off in between tasks and requires cues to stay awake. pt completed supine to sit min A using bed rail. son assist pt again with ambulation to the chair using FWW min to mod A with (+) LOB x 3 requiring PT to provide CGA to pt and son mod A. pt cued for steadiness. pt rested on chair. educated on safety and current mobility level and SNF recommendation but pt does not want to go to one. Daughter stated that she lives ~ 2 blocks away from pt and can also provide assistance. Pt agreed to ambulate and do bed mobility again. daughter and son assisted pt and daughter was able to provide assistance to pt with ambulation, bed mobility. pt requested to just stay in bed. required total A for positioning. educated son and daughter on proper bed positioning. call light and table placed within reach. caregiver training set up tomorrow at ~ 9 am. Gait Assessment Gait Gait Assistance Required: Minimum Assistance,Moderate Assistance,1 Person Assist Distance (Feet) 15 Able to Maintain Weight Bearing Status Yes During Gait Assistive Devices Assistive Device Gait Belt,Front Wheeled Walker Gait Deviations General Gait Pattern Decreased Stride Length, Decreased Feet Clearance Factors Limiting Gait Function Factors Limiting Gait Function Decreased Activity Tolerance, Decreased Strength,Difficulty Following Directions,Limited Range of Motion,Pain,Poor Balance,Poor Safety Awareness M5 PT-IP Objective Assessments Start: 03/05/21 12:18 Freq: NEEDED Status: Active Protocol: Document 03/05/21 13:10 AB (Rec: 03/05/21 14:54 AB [id number]) Orientation Orientation/Cognition Level of Alertness Confusional State Orientation Name Language Function Ability No Deficits Noted Safety Awareness Decreased Safety Awareness Memory Description 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,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 Gross Range of Motion Lower Extremity ROM Assessment Within Functional Limits Strength Lower Extremity Strength Assessment Bilaterally Impaired Hip 3-/5 Knee RLE: 3+/5 LLE: 3-/5 M6 PT-IP Treatment Start: 03/05/21 12:18 Freq: NEEDED Status: Active Protocol: Document 03/06/21 12:48 AB (Rec: 03/06/21 13:53 AB [email or web address]) Physical Therapy Treatment Education Education Provided Precautions,Safety M7 PT-IP Assessment and Plan Start: 03/05/21 12:18 Freq: NEEDED Status: Active Protocol: Document 03/06/21 12:48 AB (Rec: 03/06/21 13:53 AB [email or web address]) PT Summary Assessment and Plan Potential Rehabilitation Potential Fair Summary Impairments Pain,ROM,Strength,Balance, Coordination,Sensation,Tone, Cognition,Bed Mobility, Transfers,Gait,Activity Tolerance Progress Towards Goals Slow Progress due to Pain,Slow Progress due to Medical Issues,Slow Progress due to Activity Tolerance Assessment Summary pt continues to have decrease level of alertness and requires constant cues to stay awake and stay engaged with task at hand. caregiver training conducted and further training is needed. set up at 9 am tomorrow 03/07. pt continues to have decrease activity tolerance and only tolerated ~ 15 ft of ambulation using FWW min to mod A with LOB. pt is not ready to do stair climbing and continues to be drowsy affecting safety awareness and following instructions. will continue to assess progress. Pt at this time may require SNF rehab. Goals Bed Mobility Goal Standby Assistance Transfer Goal Standby Assistance,Front Wheeled Walker Gait Goal Standby Assistance,Front Wheel Walker Gait Distance 150 Other Goals up/down 3 steps R rail ascending SBA Days to Meet Goals 5 Frequency of Treatment Frequency Of Treatment Twice a Day Treatment Plan Physical Therapy Treatment Plan Bed Mobility Training,Transfer Training,Gait Training, Therapeutic Exercise,Balance Retraining,Post Op Education, Discharge Planning,Hot or Cold Pack,Neuromuscular Re-ed, Coordination Retraining,Manual Therapy Other Recommendations and Next Treatment caregiver trainin03/07/21 Focus at 9 am Precautions Lumbar Precautions Log Roll,No Twisting,Limit Bending,Lifting Restriction of 10 lbs,Gait Belt above Incisional Area Recommendations To Nursing Amount of Assist Needed 1 Person Assist Discharge Recommendations PT Discharge Recommendations Home with 07/02 Assist Available,Home Health,SNF Rehab,Home vs SNF Transportation Needs at Discharge Private Vehicle,Wheelchair/ Cabulance
[2021-03-06] MEDS: hydrOXYzine pamoate 25 MG CAPSULE PO (13:35)
--- NOTE | 2021-03-06 23:10 | PC.NURSE ---
LATE NOTE, IV REMOVED, SITE COMPROMISED,REFUSED REPLACEMENT
[2021-03-07 00:05] VITALS: BP 114/78; PULSE 70; RESP 18; TEMP 36.7; O2SAT 93
[2021-03-07] MEDS: OXYCODONE IR 5 MG TABLET 10 MG PO ×3 (01:00→12:01)
[2021-03-07] MEDS: ACETAMINOPHEN 325 MG TABLET 650 MG PO (01:01)
[2021-03-07 05:55] VITALS: BP 126/74; PULSE 63; RESP 18; TEMP 36.5; O2SAT 95
[2021-03-07 08:12] VITALS: O2SAT 94
[2021-03-07 08:17] VITALS: BP 129/90; PULSE 63; RESP 16; TEMP 36.7; O2SAT 93
[2021-03-07] MEDS: METOPROLOL IR 50 MG TABLET PO (09:01)
[2021-03-07] MEDS: DOCUSATE 100 MG CAPSULE PO (09:01)
[2021-03-07] MEDS: GABAPENTIN 300 MG CAPSULE 600 MG PO (09:01)
--- NOTE | 2021-03-07 10:03 | OT.IP.TRT ---
Current Diagnoses Spondylolisthesis, lumbar region (03/05/21) Other spondylosis with radiculopathy, lumbosacral region (03/05/21) Spinal stenosis, lumbar region without neurogenic claudication (03/05/21) Surgery Performed Operation Date: 03/04/21 08:45 Actual Procedures p L4-5, L5-S1 TLIF with posterior instrumentation - Richard Conrad MD Occupational Therapy Treatment Note M2 OT-IP Current Condition Start: 03/06/21 10:43 Freq: Status: Discharge Protocol: Document 03/06/21 10:00 [facility] (Rec: 03/06/21 10:59 [facility] [id number]) Occupational Therapy Current Condition Current Condition Evaluation Date 03/06/21 Treatment Diagnosis s/p L4-5, L5-S1 fusion/lami, decreased mobility Diagnosis Onset Date 03/04/21 Post Operative Precautions Lumbar Precautions Log Roll,No Twisting,Limit Bending,Lifting Restriction of 10 lbs,Gait Belt above Incisional Area M3 OT- IP Subjective and Pain Start: 03/06/21 10:43 Freq: Status: Discharge Protocol: Document 03/07/21 12:41 [facility] (Rec: 03/07/21 12:51 [facility] [id number]) OT- Subjective Occupational Therapy Visit Type Type Treatment Note Visit Start Time 09:15 Visit Stop Time 10:03 Total Visit Minutes 48 Occupational Therapy Visit Comments Patient Comments Pt's son and daughter present for caregiver training. Patient/Caregiver Goals To go home. OT Pain Assessment Pain When Pain Assessed During Mobility Pain Present Pain Present Pain Reported M4 OT- IP ADL's Start: 03/06/21 10:43 Freq: Status: Discharge Protocol: Document 03/07/21 12:41 [facility] (Rec: 03/07/21 12:51 [facility] [id number]) OT ADL-Grooming General Evaluation Grooming Ability Standby Assistance OT ADL-Dressing General Eval Lower Body Dressing Ability Minimal Assistance Comments OT Dressing Comments Able to issue sock aid so pt able to mckenna her socks. OT ADL-Toileting General Evaluation Toileting Ability Standby Assistance Comments OT Toileting Comments vc not to twist while wiping. OT ADL-Bathing General Evaluation Bathing Ability Moderate Assistance Areas Needing Assistance Wash/Dry Back,Wash/Dry Lower Extremities Comments OT Bathing Comments Pt to get a shower chair and daughter able to assist for her needs. M6 OT- IP Functional Cognition Start: 03/06/21 10:43 Freq: Status: Discharge Protocol: Document 03/07/21 12:41 [facility] (Rec: 03/07/21 12:51 [facility] [id number]) Cognitive Factors Limiting Selfcare Function Cognitive Ability Level of Alertness Alert Patient Orientation Name,Place,Situation Attention Span Ability Capable of Focused Attention, Capable of Sustained Attention Ability to Follow Commands Able to Follow One Step Commands Safety Awareness Decreased Ability to Apply Precautions,Underestimates Need for Assistance Problem Solving Ability Needs Assist to Identify Solutions Cognitive Comments Cognitive Assessment Comments Pt able to follow commands better, but still a bit impulsive and needing cues to follow back precautions. M7 OT- IP Mobility and Balance Start: 03/06/21 10:43 Freq: Status: Discharge Protocol: Document 03/07/21 12:41 [facility] (Rec: 03/07/21 12:51 [facility] [id number]) OT- Bed Mobility Assessment Rolling Level of Assistance Contact Guard Assistance Supine to Sit Supine to Sit Assist Contact Guard Assistance Scooting Scooting to Edge of Bed Standby Assistance OT-Transfer Assessment Sit to and From Stand Sit to and from Stand Contact Guard Assistance Transfers Transfer Ability Contact Guard Assistance,1 Person Assistance Technique Transfer Destination Bed,Chair,Shower Stall,Toilet Comments Mobility Comments Pt's daughter and son able to safety assist for all gait belt needs, transfers, ADl's, and bed mobility needs. M8 OT- IP Objective Assessments Start: 03/06/21 10:43 Freq: Status: Discharge Protocol: Document 03/06/21 10:00 [facility] (Rec: 03/06/21 10:59 [facility] [id number]) OT-Muscle Tone Assessment Muscle Tone WNL Yes M9 OT- IP Assessment and Plan Start: 03/06/21 10:43 Freq: Status: Discharge Protocol: Document 03/07/21 12:41 [facility] (Rec: 03/07/21 12:51 [facility] [id number]) OT Summary Assessment and Plan Potential Rehabilitation Potential Good Analytic Complexity at Evaluation Low Summary Progress Towards Goals Progressing Toward Goals Assessment Summary Pt's son and daughter have completed all caregiver training for mobility and ADl needs with good safety and demonstration. Pt to go home with assist at all times. Goals Days to Meet Goals 48 Frequency of Treatment Frequency Of Treatment Once a Day Treatment Plan OT Treatment Plan ADL Training,Functional Cognition Training,Functional Mobility,Patient/Family Education,Discharge Planning Discharge Recommendations OT Discharge Recommendations Home with 24/ Assist Available,Home Health Home Equipment Needs shower chair, FWW Transportation Needs at Discharge Private Vehicle
--- NOTE | 2021-03-07 10:24 | PT.IPTN ---
Current Diagnoses Spondylolisthesis, lumbar region (03/05/21) Other spondylosis with radiculopathy, lumbosacral region (03/05/21) Spinal stenosis, lumbar region without neurogenic claudication (03/05/21) Surgery Performed Operation Date: 03/04/21 08:45 Actual Procedures p L4-5, L5-S1 TLIF with posterior instrumentation - Richard Conrad MD Physical Therapy Treatment Note M2 PT-IP Current Condition Start: 03/05/21 12:18 Freq: NEEDED Status: Discharge Protocol: Document 03/05/21 10:25 [facility] (Rec: 03/05/21 12:27 [facility] [id number]) Physical Therapy Current Condition Current Condition Evaluation Date 03/05/21 Treatment Diagnosis s/p L4-5, L5S1 fusion/lami; difficulty in walking Onset Date 03/04/21 Precautions Lumbar Precautions Log Roll,No Twisting,Limit Bending,Lifting Restriction of 10 lbs,Gait Belt above Incisional Area Other Precautions falls M3 PT-IP Subjective Start: 03/05/21 12:18 Freq: NEEDED Status: Discharge Protocol: Document 03/07/21 10:04 [facility] (Rec: 03/07/21 13:26 [facility] [id number]) Subjective Physical Therapy Visit Type Type Treatment Note Visit Start Time 10:04 Visit Stop Time 10:24 Total Visit Minutes 20 Notes Son and daughter present Number of FILE KEEPER Visits 1 Physical Therapy Visit Comments Patient Comments pt is agreeable to do PT; son and daughter in room Therapy Pain Assessment Pain When Pain Assessed During Mobility Pain Present Pain Present Pain Reported M4 PT-IP Mobility and Gait Start: 03/05/21 12:18 Freq: NEEDED Status: Discharge Protocol: Document 03/07/21 10:04 [facility] (Rec: 03/07/21 13:26 [facility] [id number]) PT-Transfer Assessment Sit to and From Stand Sit to and from Stand Minimal Assistance,1 Person Assistance,Use of Upper Extremities Equipment Transfer Assistive Device Bed Rail,Front Wheeled Walker Orthotic/Prosthetic Devices or Brace: No Transfers Transfer Destination Chair Transfer Technique ambulated Transfer Ability Level of Assist Contact Guard Assistance,1 Person Assistance,Use of Upper Extremities Comments Mobility Comments Pt sitting in chair, son donned gait belt and assisted pt with Min A to stand. Pt ambulated in [place] ~100ft w/FWW /CGA provided by son, son cues pt for proper positioning in walker and cues to prevent pt from scissor stepping. Pt climbed three stairs with right rail and son providing CGA. Pt then ambulated back to room sitting in chair with son providing cues to reach back to arms of chair for controlled descent. Pt left in chair with son and daughter present and all needs within reach, RN informed of pt progress and that pt seems safe to d/c home with family to assist. Gait Assessment Gait Gait Assistance Required: Contact Guard Assist,1 Person Assist Distance (Feet) 200 Able to Maintain Weight Bearing Status Yes During Gait Assistive Devices Assistive Device Gait Belt,Front Wheeled Walker Gait Deviations General Gait Pattern Decreased Stride Length, Decreased Feet Clearance Factors Limiting Gait Function Factors Limiting Gait Function Decreased Activity Tolerance, Decreased Strength,Difficulty Following Directions,Limited Range of Motion,Pain,Poor Balance,Poor Safety Awareness Comments Gait Comments pls refer to mobility section for details Stair Climbing Assessment Evaluation Level of Assist On Stairs Contact Guard Assistance,1 Person Assistance Devices Stair Climbing Assistive Devices Right Railing Technique/Endurance Stair Climbing Direction Ascend and Descend Stair Climbing Technique Step to Step Number of Steps Climbed 3 Stair Climbing Set # Repetitions (reps) 1 M5 PT-IP Objective Assessments Start: 03/05/21 12:18 Freq: NEEDED Status: Discharge Protocol: Document 03/05/21 13:10 [facility] (Rec: 03/05/21 14:54 [facility] [id number]) Orientation Orientation/Cognition Level of Alertness Confusional State Orientation Name Language Function Ability No Deficits Noted Safety Awareness Decreased Safety Awareness Memory Description 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,Blankbook Forwarder Impaired Gross Range of Motion Lower Extremity ROM Assessment Within Functional Limits Strength Lower Extremity Strength Assessment Bilaterally Impaired Hip 3-/5 Knee RLE: 3+/5 LLE: 3-/5 M6 PT-IP Treatment Start: 03/05/21 12:18 Freq: NEEDED Status: Discharge Protocol: Document 03/06/21 12:48 [facility] (Rec: 03/06/21 13:53 [facility] [email or web address]) Physical Therapy Treatment Education Education Provided Precautions,Safety M7 PT-IP Assessment and Plan Start: 03/05/21 12:18 Freq: NEEDED Status: Discharge Protocol: Document 03/07/21 10:04 [facility] (Rec: 03/07/21 13:26 [facility] [id number]) PT Summary Assessment and Plan Potential Rehabilitation Potential Fair Summary Impairments Pain,ROM,Strength,Balance, Coordination,Sensation,Tone, Cognition,Bed Mobility, Transfers,Gait,Activity Tolerance Progress Towards Goals Progressing Toward Goals Assessment Summary Pt alert during session, able to increase gait distance to ~ 200ft w/FWW/CGA and able to go up/down three steps CGA. Pt with good pain control and son and daughter present to assist pt and provide all assist. Pt seems able to d/c home with assist when medically stable. Goals Bed Mobility Goal Standby Assistance Transfer Goal Standby Assistance,Front Wheeled Walker Gait Goal Standby Assistance,Front Wheel Walker Gait Distance 150 Other Goals up/down 3 steps R rail ascending SBA Days to Meet Goals 5 Frequency of Treatment Frequency Of Treatment Twice a Day Treatment Plan Physical Therapy Treatment Plan Bed Mobility Training,Transfer Training,Gait Training, Therapeutic Exercise,Balance Retraining,Post Op Education, Discharge Planning,Hot or Cold Pack,Neuromuscular Re-ed, Coordination Retraining,Manual Therapy Precautions Lumbar Precautions Log Roll,No Twisting,Limit Bending,Lifting Restriction of 10 lbs,Gait Belt above Incisional Area Recommendations To Nursing Amount of Assist Needed 1 Person Assist Discharge Recommendations PT Discharge Recommendations Home with 24/ Assist Available,Home Health Transportation Needs at Discharge Private Vehicle
--- NOTE | 2021-03-07 11:06 | CM.DPC ---
DCP: continued: pt again with a d/c to home order when cleared by PT is noted for today. Met with pt now and found her up, dressed and looking very alert. Pt says I feel like myself again. Pt confirmed she worked with OT and PT this morning and does not have need of another session. I am ready to go. She clarifies that she will be going to her mother's house in [place] where her son Rai also lives. She says she will have plenty of help as she recovers. Pt has a FWW at home. P: home today. Her d/c medication list has been adjusted by Riley Alfaro.
[2021-03-07] MEDS: hydrOXYzine pamoate 25 MG CAPSULE PO (12:01)
--- NOTE | 2021-03-07 12:20 | PC.NURSE ---
Pt is dressed and ready for discharge home with Family. Went over d/c instructions with Pt and Family-discussed d/c meds, time of last dose, reviewed stroke education, s/s of infection and when to call MD, back precautions-no BLT and logroll, drinking plenty of fluids to prevent constipation or dehydration, no driving while on narcotics, consider stool softeners or Miralax for constipation, and follow up. Pt denies further questions and was taken out via w/c by PARTS AND SERVICE MANAGER to pov with family and all belongings.
== END 2021-03-07 12:24 | disposition home or self-care (01) ==
LOC: OR 09:18 → AC 09:18
PROVIDERS: Admitting Provider Orthopaedic Surgery Orthopaedic Surgery of the Spine; Referring Provider Orthopaedic Surgery Orthopaedic Surgery of the Spine; Visit Provider Orthopaedic Surgery Orthopaedic Surgery of the Spine
PROC: (CPT 22633; principal; 2021-03-04 08:45)
DX: M48.061 Spinal stenosis, lumbar region without neurogenic claudication (principal); M43.16 Spondylolisthesis, lumbar region; M47.26 Other spondylosis with radiculopathy, lumbar region; E66.01 Morbid (severe) obesity due to excess calories; I10 Essential (primary) hypertension; G47.33 Obstructive sleep apnea (adult) (pediatric); F41.9 Anxiety disorder, unspecified; F41.0 Panic disorder [episodic paroxysmal anxiety]; Z68.41 Body mass index [BMI] 40.0-44.9, adult
CPT/HCPCS: 22633; 22634; 22842; 22853 ×2; 63047; 63048; 20939; 36415; 72100; 76000; 82962; 85014; 85018; 94760; 97116; 97162; 97165; 97530; 97535; 99406; C1776; G0378; C9290; J0330; J0690; J1100; J1170; J2060; J2250; J2405; J2704; J3010

== ENCOUNTER 2021-03-16 07:01 | Inpatient (IN) | payer MEDICARE, MEDICAID, SELFPAY ==
[2021-03-04 16:26] VITALS: BMI 41.5
[2021-03-16] VITALS (21 sets, daily range): BP systolic 82–145; BP diastolic 53–95; PULSE 53–104; RESP 8–18; TEMP 35.9–36.9; O2SAT 85–100; BMI 41.1
[2021-03-16] MEDS: LACTATED RINGERS 1,000 ML 100 ML IV ×3 (09:16→16:00)
[2021-03-16] MEDS: OXYCODONE IR 10 MG TABLET PO ×3 (09:25→23:00)
[2021-03-16] MEDS: DOCUSATE 100 MG CAPSULE PO ×2 (09:27→23:01)
--- NOTE | 2021-03-16 09:35 | PC.NURSE ---
Patient arrived via EMS to room at 0900. Pt alert, oriented x4. Ambulated with standby assistance and walker to the restroom, voided. Per EMS, received 1mg IV dilaudid through 20g R AC IV pre-transport around 0615. Patient stating pain 9/10 in low back. Pt v/s stable. Patient oriented to room and unit, explained medications, plan of care, and fall prevention information. MRI discs and information from transferring hospital, along with pt's back surgery folder, present on arrival. Placed in pt chart. SCDs in place, pt resting calmly in bed.
--- NOTE | 2021-03-16 10:45 | PC.NURSE ---
Patient is alert to self and situation, knows she is in the hospital in [place]. However, when asked specific questions about emergency contacts, phone numbers, etc, pt appears mildly confused with rambling speech. Pt drowsy but wakes up to verbal stimuli.
[2021-03-16 10:52] LABS: Add Manual Diff / Slide Review NO; Basophils Absolute Auto 0 /uL (0-100); Basophils Percent Auto 0.4 % (0-2); Eosinophils Absolute Auto 200 /uL (0-450); Eosinophils Percent Auto 1.6 % (2-4); Hematocrit 33.4 % (36-46); Lymphocytes Absolute Auto 1000 /uL (1100-4500); Lymphocytes Percent Auto 9.8 % (25-40); Mean Corpuscular Hemoglobin 30.5 PG (26-34); Mean Corpuscular Volume 92.6 fL (80-100); Monocytes Absolute Auto 600 /uL (0-900); Monocytes Percent Auto 5.8 % (3-14); Neutrophils Absolute Auto 8400 /uL (1500-7000); Neutrophils Percent Auto 82.4 % (50-75); Platelet Count 255 X10^3/uL (150-400); Red Blood Cell Count 3.61 X10^6/uL (4.0-5.2); Red Cell Distribution Width 13.9 % (11.6-14.8); White Blood Cell Count 10.2 X10^3/uL (4.5-11.0)
[2021-03-16 11:13] LABS: BUN Creatinine Ratio 10.7 (6-22); Blood Urea Nitrogen 8 mg/dL (7-17); Calcium 9.1 mg/dL (8.4-10.2); Carbon Dioxide 35 mmol/L (22-32); Chloride 101 mmol/L (98-107); Estimated Glomerular Filt Rate > 60.0 mL/min (>60); Glucose 99 mg/dL (70-100); HEMOLYSIS < 15 (0-50); Potassium 4.2 mmol/L (3.4-5.1); Sodium 137 mmol/L (137-145)
--- NOTE | 2021-03-16 13:11 | PC.NURSE ---
Patient to OR at 1247. Report given to KEREN Ann, on acute care.
--- NOTE | 2021-03-16 14:04 | P.HP_ITS ---
History of Present Illness History of Present Illness Date Patient Seen: 03/16/21 Date of Onset of Symptoms: 03/09/21 Chief complaint: Wound Infection Narrative: Ms. Hurley is here for evaluation of her lumbar 2 weeks s/p L4-S1 TLIF. She has worsening pain and low grade fever the last couple of days. She has progressively worsening pain. Labs today shows elevated ESR, CRP, WBC. MRI was performed which showed fluid collection in bilateral wound either consistent with seroma or infection. Patient History Medical History Arthritis BMI 40.0-44.9, adult Depression HTN (hypertension) Obesity KEVIN (obstructive sleep apnea) Panic attacks Spinal stenosis Surgical History History of surgery History of surgery Hx of cholecystectomy Family & Social History Social History: household members family Safety & Behavioral: Feels Safe in Current Yes Environment Been Physically Hurt or No Threatened By a Person Suicidal Ideation Description None Suicide Plan Description No Plan Tobacco & Substance use: Smoking Status Current every day smoker alcohol intake current alcohol intake frequency holiday/special occasion Substance Use Type marijuana Meds Home Medications and Allergies Home Medications Medication Instructions Recorded Confirmed Type gabapentin 300 mg capsule 600 mg PO TID 03/03/21 03/16/21 History metoprolol tartrate 50 mg tablet 50 mg PO BID 03/03/21 03/16/21 History oxycodone 10 mg tablet 10 mg PO Q4H 03/03/21 03/16/21 History trazodone 300 mg tablet 300 mg PO BEDTIME 03/03/21 03/16/21 History venlafaxine 225 mg tablet,extended 112.5 mg PO DAILY 03/03/21 03/16/21 History release 24 hr famotidine 40 mg tablet (Pepcid) 40 mg PO BEDTIME PRN 03/04/21 03/16/21 History acetaminophen 325 mg tablet 650 mg PO Q6HR PRN #90 tab 03/06/21 03/16/21 Rx Allergies Allergy/AdvReac Type Severity Reaction Status Date / Time adhesive tape Allergy Unknown blisters Verified 03/04/21 07:47 codeine AdvReac Nausea Verified 03/04/21 07:48 Exam Vital Signs (past 8 hours): - 03/16/21 09:05 03/16/21 11:55 03/16/21 12:00 Temperature 98.4 F 98.1 F Pulse Rate 70 73 Respiratory Rate 18 18 Blood Pressure 128/61 111/57 L Pulse Oximetry 96 95 03/16/21 13:18 Temperature 98.5 F Pulse Rate 71 Respiratory Rate Blood Pressure 107/72 Pulse Oximetry 99 Oxygen Delivery Method Nasal Cannula Oxygen Flow Rate 3 Back/Spine/Pelvis Other: bilateral incisions with aashish in place, no active drainage, erythema over right side incision and lateral to the incision consistent with cellulitis. Pain with turning in her lower spine. Neuro Other: Intact without deficit on neuro exam today. Objective Labs Result Diagrams: 03/16/21 10:40 03/16/21 10:40 Labs: Laboratory Results - last 24 hr 03/16/21 03/16/21 10:40 10:40 WBC 10.2 RBC 3.61 L Hgb 11.0 L Hct 33.4 L MCV 92.6 MCH 30.5 MCHC 33.0 RDW 13.9 Plt Count 255 Neut % (Auto) 82.4 H Lymph % (Auto) 9.8 L [place] % (Auto) 5.8 Eos % (Auto) 1.6 L Baso % (Auto) 0.4 Neut # (Auto) 8400 H Lymph # (Auto) 1000 L [place] # (Auto) 600 Eos # (Auto) 200 Baso # (Auto) 0 Sodium 137 Potassium 4.2 Chloride 101 Carbon Dioxide 35 H BUN 8 Creatinine 0.75 Estimated GFR > 60.0 BUN/Creatinine Ratio 10.7 Glucose 99 Calcium 9.1 Assessment & Plan Assessment & Plan narrative: Patient is 2 weeks post surgery with worsening pain and low grade fever. Patient is not sure whether there was drainage from her wound or not. Based on her elevated labs and worsening pain, and MRI showing fluid collection, I will take her in for emergent I&D and wound exploration. I will keep her in for IV antibiotics.
[2021-03-16] MEDS: BUPIVACAINE 0.25% (PF) VIAL 30 ML INJ (14:44)
[2021-03-16] MEDS: EPINEPHrine 1 MG/ML 0.15 MG INJ (14:44)
[2021-03-16] MEDS: SODIUM CHLORIDE IRRIG SOLUTION 3,000 ML, GENTAMICIN 240 MG IRR (14:45)
--- NOTE | 2021-03-16 15:32 | P.OP_ITS ---
Operative Date/Time/Diagnoses Date of procedure: 03/16/21 Time of procedure: 14:00 Pre-op diagnosis: 1. Lumbar post op wound infection Post-op diagnosis: same Procedure & Clinicians Procedure: 1. Lumbar wound irrigation and debridement of skin and subcutaneous tissue of right sided wound 2. Evacuation of seroma on left side wound Same procedure as scheduled: Yes Indications: Ms. Hurley is here for evaluation of worsening pain to her right sided lumbar wound 2 weeks post fusion surgery. She has low grade fever 100.1 and elevated ESR and CRP. MRI showed fluid collection in her wound. Right-sided patient's wound has erythema as well as induration on examination indicating fluid collection underneath. After informed consent was obtained, patient was taken to OR emergently for I&D and wound exploration. Surgeon: Richard Conrad Property Clerk: Neville Berrios Click Yes if Unassisted: No Anesthesia Type: General Operative Notes Closure Type: primary Specimen(s): none sent Estimated Blood Loss (mL): 70 Blood products transfused: none Procedure in detail: Patient was seen in the preoperative area. Risks and benefits of the surgery was discussed with the patient. Informed consent was obtained from the patient and placed in the chart. Surgical site was marked. Patient was taken to the operative room. General anesthesia was administered. Prophylactic antibiotic was given to the patient less than 30 min before the incision was made. Patient was placed into a prone position on the Vaibhav table. Patient's back was then prepped and draped in the sterile fashion. Time- out was performed at this time. Patient's bilateral incisions were inspected. Right-sided skin raul were r emoved 1st. Dissection was made through the subcutaneous layer into the deeper part of the subcutaneous layer superficial to the fascia. Copious amount of infectious appearing fluid was able to be expressed from the wound total approximately 200 cc. Leksell rongeur was used to remove any unhealthy appearing tissue as well as using the godfrey. The deep fascial layer is intact with no exposed hardware. After excision all debridement was completed the wound was irrigated copiously with 3 L of sterile normal saline with gentamicin. After the irrigation and debridement was completed the wound was then re- examined. Healthy-appearing tissue was visible on all surfaces of the wound. Culture was taken of the fluid was sent to the labs for Gram stain culture sensitivity. #1 Nylon suture was used to close the wound in vertical mattress fashion in interrupted fashion. Raul then was placed between the nylon vertical mattress sutures. The wound was closed without any difficulty and without added stress the skin. 0 and #1 PDS suture was used to close subcutaneous layer in multiple layers. Left-sided incision was partially opened and same approach was used to explore the subcutaneous layer. Clear straw-colored seroma was identified in the same space on the left side. There is no signs of infection. The wound was sectioned using the Yankauer suction until the seroma was cleared. Additional irrigation was used to irrigate the wound. The left-sided wound was then closed with zero PDS suture and skin raul. No culture was taken from the left side. At this time a sterile dressing was applied the patient's wound/incision. Patient was then woken up from anesthesia and transferred recovery room stable condition. There were no complications. Patient will be admitted back to the inpatient hospital for pain control IV antibiotics and following culture result. Complications: none Post-operative Condition: stable Disposition: PACU Plan for aftercare: Admit to inpatient hospital
[2021-03-16] MEDS: CEFAZOLIN 1 GM VIAL 2 GM IV ×2 (15:44→23:50)
[2021-03-16] MEDS: ONDANSETRON 4 MG/2 ML INJ IV (15:46)
[2021-03-16] MEDS: HYDROMORPHONE 2 MG INJ IV ×2 (15:51→15:57)
[2021-03-16] MEDS: hydrOXYzine 50 MG/ML INJ IM (15:53)
[2021-03-16] MEDS: LORazepam 2 MG/ML INJ 0.25 MG IV (15:59)
[2021-03-16] MEDS: OXYCODONE IR 5 MG TABLET 10 MG PO (16:29)
--- NOTE | 2021-03-16 16:45 | PC.NURSE ---
report from PACU: I+D completed, hemovac drain in place. p/o pain controlled w/ dilauded, hydroxyzine, ativan, oxycodone. desat to 80s, o2 5L via NC. arrived to floor at 1645: drowsy, appears to be sleeping. wakens slightly to verbal stimuli, movement. HOB up 45 degrees, laying on her L side. spinal incision covered, CDI, hemovac in place, draining sang fluid. SCD's, tele & cpox applied. patient reports 8/10 pain to back, shows no facial grimacing, no wincing during pull up in bed w/ 2pa. appears to be comfortable. Agreeable to let me rest. instructed track production engineer light use, which is placed in her hand. she states she understands how to use.
[2021-03-16] MEDS: SODIUM CHLORIDE 0.9% 1,000 ML 100 ML IV (17:47)
[2021-03-16] MEDS: hydrOXYzine pamoate 25 MG CAPSULE PO (19:39)
[2021-03-16] MEDS: ACETAMINOPHEN 325 MG TABLET 650 MG PO (19:39)
[2021-03-16] MEDS: MAG HYDROX/ALUM/SIMETH 30 ML UDC PO (19:40)
[2021-03-16] MEDS: FAMOTIDINE 20 MG TABLET 40 MG PO (19:40)
[2021-03-16] MEDS: SENNOSIDES 8.6 MG TABLET 17.2 MG PO (23:00)
[2021-03-16] MEDS: TRAZODONE 100 MG TABLET 300 MG PO (23:01)
[2021-03-16] MEDS: GABAPENTIN 300 MG CAPSULE 600 MG PO (23:02)
[2021-03-16] MEDS: METOPROLOL IR 50 MG TABLET PO (23:02)
[2021-03-17] VITALS (8 sets, daily range): BP systolic 86–112; BP diastolic 45–65; PULSE 55–65; RESP 16–18; TEMP 36.4–36.6; O2SAT 92–99
--- NOTE | 2021-03-17 00:27 | PC.NURSE ---
Patient oriented but drowsy and falls asleep easily. BP 82/[address] Harris informed and reviewed past VS, meds and IVF. Order received to stop scheduled oxycodone but did not want to order bolus at this time. Breath sounds diminished but CTA with oxygen initally at 2L/min 94% but dropped into low 80's when asleep as has periods of apnea, is mouth breathing and snoring so now oxygen increased to 5L/min. HRR but bradycardic with rate in 40-50's. Denies nausea. BT present but denies passing flatus; no reported BM since 03/05. Denies dysuria, frequency or urgency with urination; voided on previous shift. Gait not assessed at this time but reported to get up to BSC with walker and 1 assist. Dressing to back CDI; hemovac is intact and compressed. Is able to move self in bed. Wearing bilateral calf SCD's and CMS is intact. Stated pain was 4/10 and tolerable and is now already asleep. Fall risk score is high and bed alarm is activated.
[2021-03-17] MEDS: SODIUM CHLORIDE 0.9% 1,000 ML 100 ML IV ×2 (03:23→15:15)
[2021-03-17 08:42] LABS: Hematocrit 33.6 % (36-46); Hemoglobin 10.8 g/dL (12.0-16.0)
[2021-03-17] MEDS: GABAPENTIN 300 MG CAPSULE 600 MG PO ×3 (08:56→20:21)
[2021-03-17] MEDS: DOCUSATE 100 MG CAPSULE PO ×2 (08:57→20:22)
[2021-03-17] MEDS: hydrOXYzine pamoate 25 MG CAPSULE PO ×3 (08:57→18:00)
[2021-03-17] MEDS: CEFAZOLIN 1 GM VIAL 2 GM IV (09:01)
[2021-03-17] MEDS: VENLAFAXINE ER 37.5 MG CAP 112.5 MG PO (09:05)
[2021-03-17] MEDS: OXYCODONE IR 5 MG TABLET 10 MG PO ×3 (09:58→18:00)
--- NOTE | 2021-03-17 10:04 | P.PN_ITS ---
Subjective Subjective Date Patient Seen: 03/17/21 Time Patient Seen: 10:05 Interval history: Patient is complaining of moderate pain, and just received pain medications from her nurse. She denies fevers, chills, night sweats. She denies nausea or vomiting. She states she has mild decreased sensation in the right side, which is about her baseline. She underwent an L4-5 and L5-S1 fusion on 03/04/2021 and has been readmitted for an irrigation and debridement for right-sided wound infection. She was noted to have a fluid collection on MRI scan and elevated ESR and CRP. Exam Vital Signs (past 8 hours): - 03/17/21 06:00 03/17/21 08:00 Temperature 97.9 F 97.5 F L Pulse Rate 55 L 59 L Respiratory Rate 18 18 Blood Pressure 107/62 108/62 Pulse Oximetry 98 99 Oxygen Delivery Method Nasal Cannula Oxygen Flow Rate 3 Narrative Exam Narrative: 56-year-old female, in mild distress, resting comfortably in bed. Motor functions are intact in bilateral lower extremities. Sensation is mildly decreased on the right side to light touch in her bilateral lower extremities. Both legs are warm and dry. There is scant drainage on the right side of her dressing, with some mild surrounding erythema and mild warmth. Bilateral calves are soft, nontender to palpation. Objective Labs Result Diagrams: 03/17/21 08:30 03/16/21 10:40 Labs: Laboratory Results - last 24 hr 03/16/21 03/16/21 03/16/21 10:15 10:40 10:40 WBC 10.2 RBC 3.61 L Hgb 11.0 L Hct 33.4 L MCV 92.6 MCH 30.5 MCHC 33.0 RDW 13.9 Plt Count 255 Neut % (Auto) 82.4 H Lymph % (Auto) 9.8 L Potter % (Auto) 5.8 Eos % (Auto) 1.6 L Baso % (Auto) 0.4 Neut # (Auto) 8400 H Lymph # (Auto) 1000 L Potter # (Auto) 600 Eos # (Auto) 200 Baso # (Auto) 0 Sodium 137 Potassium 4.2 Chloride 101 Carbon Dioxide 35 H BUN 8 Creatinine 0.75 Estimated GFR > 60.0 BUN/Creatinine Ratio 10.7 Glucose 99 Calcium 9.1 Nasal Screen MRSA (PCR) Negative for mrsa 03/17/21 08:30 WBC RBC Hgb 10.8 L Hct 33.6 L MCV MCH MCHC RDW Plt Count Neut % (Auto) Lymph % (Auto) Potter % (Auto) Eos % (Auto) Baso % (Auto) Neut # (Auto) Lymph # (Auto) Potter # (Auto) Eos # (Auto) Baso # (Auto) Sodium Potassium Chloride Carbon Dioxide BUN Creatinine Estimated GFR BUN/Creatinine Ratio Glucose Calcium Nasal Screen MRSA (PCR) [facility] Medical History Arthritis BMI 40.0-44.9, adult Depression HTN (hypertension) Obesity KEVIN (obstructive sleep apnea) Panic attacks Spinal stenosis Surgical History History of surgery History of surgery Hx of cholecystectomy Social History household members: family Smoking Status: Current every day smoker alcohol intake: current Assessment & Plan Post-op Postoperative Procedures: Procedures Operation Date: 03/16/21 14:30 Actual Procedure Side Surgeon p Incision and Drainage Wound/Spine Richard Conrad MD Postoperative status narrative: Stable status post irrigation and debridement for lumbar wound infection. Original lumbar fusion was on 03/04/2021. Postoperative plan narrative: Cultures are still pending. There are a few poly white blood cells seen but no organisms seen on Gram stain. Continue with current antibiotic regimen. Her drain has put out 70 cc today, and 100 yesterday, will check with Dr. Duran when he would like me to pull the drain. Mobilize with physical therapy. Limit bending, twisting, lifting. Weightbearing as tolerated with front wheeled walker. We will likely need to keep her until cultures are finalized, likely in a few days.
--- NOTE | 2021-03-17 11:05 | PT.IIE ---
Current Diagnoses Infection following a procedure, superficial incisional surgical site, initial encounter (03/16/21) Surgery Performed Operation Date: 03/16/21 14:30 Actual Procedures p Incision and Drainage Wound/Spine - Richard Conrad MD Medical History (Last Reviewed 03/17/21 @ 10:08 by Angelina Terry PA-C) Arthritis BMI 40.0-44.9, adult Depression HTN (hypertension) Obesity KEVIN (obstructive sleep apnea) Panic attacks Spinal stenosis Physical Therapy Inpatient Evaluation/Re-Eval M1 PT/OT-IP Prior Functional Status Start: 03/17/21 12:28 Freq: NEEDED Status: Active Protocol: Document 03/17/21 11:05 AB (Rec: 03/17/21 12:40 AB [email or web address]) Medical Review Prior Functional Status Medical History Reviewed Yes Communication able to make needs known; drowsy and sleepy and requires cues to stay awake during initial mobility Mobility and Gait stated that she is modified idependent with mobility using FWW Prior Functional Level (Other details) pt s/o TLIF ~ 2 weeks ago and came back here to the hospital for I&D of lumbar wound. Social History Household Members family Living Arrangements House Number of Floors (Floors) One Floor Number of Stairs To Enter/Railing? 3 steps R rail to enter Home Environment High Toilet,Walk in Shower Home Equipment Front Wheel Walker,Four Wheel Walker,Hand Held Shower,Grab Bars Near Toilet,Grab Bars In Shower Additional Social History Comment has her mom and son to assist her at home stated that she sleeps on her recliner if she has difficulty with bed mobility M2 PT-IP Current Condition Start: 03/17/21 12:28 Freq: NEEDED Status: Active Protocol: Document 03/17/21 11:05 AB (Rec: 03/17/21 12:40 AB [id number]) Physical Therapy Current Condition Current Condition Evaluation Date 03/17/21 Treatment Diagnosis s/p I&D lumbar wound; difficulty in walking Onset Date 03/16/21 Precautions Lumbar Precautions Log Roll,No Twisting,Limit Bending,Lifting Restriction of 10 lbs,Gait Belt above Incisional Area M3 PT-IP Subjective Start: 03/17/21 12:28 Freq: NEEDED Status: Active Protocol: Document 03/17/21 11:05 AB (Rec: 03/17/21 12:40 AB [email or web address]) Subjective Physical Therapy Visit Type Type Initial Evaluation Visit Start Time 11:05 Visit Stop Time 11:30 Total Visit Minutes 25 Number of AUTO CARRIER DRIVER Visits 0 Physical Therapy Visit Comments Patient Comments agreeable to do PT Therapy Pain Assessment Pain When Pain Assessed During Mobility Pain Present Pain Present Pain Reported Location back Scale Used R LBP: pain scale not stated Pain Management Techniques Distraction,Modification of Treatment,Re-positioning, Timing of Activity with Medications M4 PT-IP Mobility and Gait Start: 03/17/21 12:28 Freq: NEEDED Status: Active Protocol: Document 03/17/21 11:05 AB (Rec: 03/17/21 12:40 [email or web address]) PT-Bed Mobility Assessment Rolling Type of Rolling Log Rolling Level of Assist Standby Assistance Supine to Sit Supine to Sit Standby Assistance,Bedrails PT-Transfer Assessment Sit to and From Stand Sit to and from Stand Contact Guard Assistance,1 Person Assistance,Use of Upper Extremities Equipment Transfer Assistive Device Gait Belt,Front Wheeled Walker Orthotic/Prosthetic Devices or Brace: No Transfers Transfer Destination Chair Transfer Technique ambulated using fWW Transfer Ability Level of Assist Contact Guard Assistance,1 Person Assistance,Use of Upper Extremities Comments Mobility Comments pt able to recall back precautions. BP: 91/58. completed log roll supine to sit SBA using bed rail but with difficulty and requiring increase time to complete task . pt stated that she has a recliner at home that she sleeps on when she has difficulty with doing bed mobility. pt without c/o dizziness. BP ins ittin/ 58. pt ambulated in room ~ 20 ft using FWW. c/o increase R sided back pain during ambulation and has to go to the chair to rest. positioned pt on the chair. pt agreed to stay up for lunch. call light and table placed within reach. BP in sitting after ambulation: 87/54. nurse is aware of decrease BP. pt without c/o dizziness/ lightheadedness/nausea. Gait Assessment Gait Gait Assistance Required: Contact Guard Assist Distance (Feet) 20 Able to Maintain Weight Bearing Status Yes During Gait Assistive Devices Assistive Device Gait Belt,Front Wheeled Walker Orthotic/Prosthetic Devices or Brace: No Gait Deviations General Gait Pattern Antalgic,Decreased Stride Length,Decreased Feet Clearance,Step-to Gait Factors Limiting Gait Function Factors Limiting Gait Function Decreased Activity Tolerance, Decreased Strength,Difficulty Following Directions,Limited Range of Motion,Pain,Poor Balance,Poor Safety Awareness PT-Balance Assessment Sitting Balance and Reactions Static Sitting Balance Ability Good Dynamic Sitting Balance Ability Good Standing Balance and Reactions Static Standing Balance Ability Fair Dynamic Standing Balance Ability Fair Device Used FWW M5 PT-IP Objective Assessments Start: 03/17/21 12:28 Freq: NEEDED Status: Active Protocol: Document 03/17/21 11:05 AB (Rec: 03/17/21 12:40 AB [email or web address]) Orientation Orientation/Cognition Level of Alertness Lethargic Orientation Name Language Function Ability No Deficits Noted Safety Awareness Decreased Safety Awareness Memory Description No Deficits Noted Gross Range of Motion Lower Extremity ROM Assessment Within Functional Limits Strength Lower Extremity Strength Assessment Right Impaired Hip 3+/5 Knee 4-/5 Coordination Assessment Gross Coordination Gross Coordination WNL Sensation Assessment Sensation Gross Sensation WNL Muscle Tone Muscle Tone WNL Yes M6 PT-IP Treatment Start: 03/17/21 12:28 Freq: NEEDED Status: Active Protocol: Document 03/17/21 11:05 AB (Rec: 03/17/21 12:40 AB [email or web address]) Physical Therapy Treatment Education Education Provided Precautions,Safety M7 PT-IP Assessment and Plan Start: 03/17/21 12:28 Freq: NEEDED Status: Active Protocol: Document 03/17/21 11:05 AB (Rec: 03/17/21 12:40 AB [email or web address]) PT Summary Assessment and Plan Potential Rehabilitation Potential Good Status of Condition at Evaluation Evolving Summary Impairments Pain,ROM,Strength,Balance, Coordination,Sensation,Tone, Cognition,Bed Mobility, Transfers,Gait,Activity Tolerance Assessment Summary pt requiring CGA with mobility using FWW but with decrease activity tolerance with decrease in BP to 87/54 and c/ o increase back pain with mobility. pt plans to go home with family to assist her. will continue to assess progress. Goals Bed Mobility Goal Independent Transfer Goal Independent,Front Wheeled Walker Gait Goal Independent,Front Wheel Walker Gait Distance 200 Other Goals up/down 3 steps R rail SBA Days to Meet Goals 5 Frequency of Treatment Frequency Of Treatment Twice a Day Treatment Plan Physical Therapy Treatment Plan Bed Mobility Training,Transfer Training,Gait Training, Therapeutic Exercise,Balance Retraining,Post Op Education, Discharge Planning,Hot or Cold Pack,Neuromuscular Re-ed, Coordination Retraining,Manual Therapy Precautions Lumbar Precautions Log Roll,No Twisting,Limit Bending,Lifting Restriction of 10 lbs,Gait Belt above Incisional Area Recommendations To Nursing Amount of Assist Needed 1 Person Assist Discharge Recommendations PT Discharge Recommendations Home with Assistance Transportation Needs at Discharge Private Vehicle
[2021-03-17] MEDS: LACTATED RINGERS 500 ML IV (13:49)
--- NOTE | 2021-03-17 13:57 | CM.DANOTE ---
DC assessment: patient readmitted prior admission DC on 03/07/21. Patient is 56 yr old female with poss surgical site infection- went in for Surgical I&D and on IV ABX. CM met with patient at the bedside and explained role patient stated understanding. Patient A&O x4 at time of visit. Patient states she is feeling better now after ABX. patient currently lives in [place] at home with extended family. Patient Drives at baseline and uses a FWW at home after previous DC. I [facility], Medicaid. Plan: DC home with family support - Son in law Jung Osborn will be picking her up and transporting her back to [place] when she is ready for DC. Elise Khan RN Discharge Planning/Care Management CM Discharge Assessment Start: 03/17/21 13:54 Freq: Status: Active Protocol: Document 03/17/21 13:54 HS (Rec: 03/17/21 13:57 HS [id number]) Discharge Planning Assessment Assigned Dermatology Sales Representative Elise Khan RN DPOA/Assigned Designee Name Danay Mckeon (daughter) Contact Information [phone] Advance Directives? No History Provided By Medical Record Has Patient been admitted in last 30 Yes days? Comment DC 03/07/21 Prior Living Arrangements House Household Members family Type of transporation used prior to Drives own vehicle admit Independent with ADL's Yes Is patient alert and oriented? Yes Caregiver for Another No DME Already Rented / Owned FWW / Walker Barriers to Discharge No Comment Patient has supportive family members. Discharge Plan Home Transportation Arrangement Son in law Jung Osborn providing transportation Referrals Initiated None needed Whiteboard Updated in Patient Room with Yes name and ext. # of Dermatology Sales Representative Review Status In Process Next Review Type Continued Stay Review
--- NOTE | 2021-03-17 14:31 | OT.IPNOTE ---
Pt here for I and D of back. Pt states has been able to do all her ADL needs, has all the equipment needs, and has family to assist at home. Pt feels no OT needed this time as just had OT eval on 03/06/21 after her L4-S1 TLIF. To check on pt tomorrow before discharging OT services.
--- NOTE | 2021-03-17 14:50 | PC.NURSE ---
Shift note: pt blood pressure remained low intermittently throughout shift. Blood pressure med held this morning. BP 86/45, 82/57 with HR in 50-60's. Pt denies dizziness. Dr Conrad notified and bolus of LR [address] Conrad, ok to give pain meds with blood pressure being low. Will recheck blood pressure once bolus is complete. Pt up couple of times with PT to chair and ambulated in room. Pt voiding using bathroom, up with 1 person assist.
--- NOTE | 2021-03-17 15:46 | PT.IPTN ---
Current Diagnoses Infection following a procedure, superficial incisional surgical site, initial encounter (03/16/21) Surgery Performed Operation Date: 03/16/21 14:30 Actual Procedures p Incision and Drainage Wound/Spine - Richard Conrad MD Physical Therapy Treatment Note M2 PT-IP Current Condition Start: 03/17/21 12:28 Freq: NEEDED Status: Active Protocol: Document 03/17/21 11:05 AB (Rec: 03/17/21 12:40 AB [email or web address]) Physical Therapy Current Condition Current Condition Evaluation Date 03/17/21 Treatment Diagnosis s/p I&D lumbar wound; difficulty in walking Onset Date 03/16/21 Precautions Lumbar Precautions Log Roll,No Twisting,Limit Bending,Lifting Restriction of 10 lbs,Gait Belt above Incisional Area M3 PT-IP Subjective Start: 03/17/21 12:28 Freq: NEEDED Status: Active Protocol: Document 03/17/21 15:46 AB (Rec: 03/17/21 17:53 AB [email or web address]) Subjective Physical Therapy Visit Type Type Treatment Note Visit Start Time 15:46 Visit Stop Time 16:10 Total Visit Minutes 24 Number of INBOUND CALL CENTER REPRESENTATIVE Visits 0 Physical Therapy Visit Comments Patient Comments pt agreed to do PT Therapy Pain Assessment Pain When Pain Assessed During Mobility Pain Present Pain Present Pain Reported Location back Scale Used pain scale not stated Pain Management Techniques Distraction,Modification of Treatment,Re-positioning, Timing of Activity with Medications M4 PT-IP Mobility and Gait Start: 03/17/21 12:28 Freq: NEEDED Status: Active Protocol: Document 03/17/21 15:46 AB (Rec: 03/17/21 17:53 AB [email or web address]) PT-Transfer Assessment Sit to and From Stand Sit to and from Stand Standby Assistance Equipment Transfer Assistive Device Gait Belt,Front Wheeled Walker Orthotic/Prosthetic Devices or Brace: No Gait Assessment Gait Gait Assistance Required: Standby Assistance,Contact Guard Assist Distance (Feet) 50 Able to Maintain Weight Bearing Status Yes During Gait Assistive Devices Assistive Device Gait Belt,Front Wheeled Walker Orthotic/Prosthetic Devices or Brace: No Gait Deviations General Gait Pattern Antalgic,Decreased Stride Length,Decreased Feet Clearance Factors Limiting Gait Function Factors Limiting Gait Function Decreased Activity Tolerance, Decreased Strength,Limited Range of Motion,Pain,Poor Balance,Poor Safety Awareness Comments Gait Comments BP in sitting reclined: 95/55. completed sit to stand SBA and ambulated in room ~ 50 ft using FWW SBA to CGA towards end of ambulation due to c/o increase LBP. no c/o dizziness/lightheadedness. requested to stay up on chair and positioned. BP checked: 94/63. call light and table placed wtihin reach. M5 PT-IP Objective Assessments Start: 03/17/21 12:28 Freq: NEEDED Status: Active Protocol: Document 03/17/21 11:05 AB (Rec: 03/17/21 12:40 AB [email or web address]) Orientation Orientation/Cognition Level of Alertness Lethargic Orientation Name Language Function Ability No Deficits Noted Safety Awareness Decreased Safety Awareness Memory Description No Deficits Noted Gross Range of Motion Lower Extremity ROM Assessment Within Functional Limits Strength Lower Extremity Strength Assessment Right Impaired Hip 3+/5 Knee 4-/5 Coordination Assessment Gross Coordination Gross Coordination WNL Sensation Assessment Sensation Gross Sensation WNL Muscle Tone Muscle Tone WNL Yes M6 PT-IP Treatment Start: 03/17/21 12:28 Freq: NEEDED Status: Active Protocol: Document 03/17/21 15:46 AB ([facility]: [facility]/17[facility]21 17[email or web address] Physical Therapy Treatment Education Education Provided Safety M7 PT-IP Assessment and Plan Start: 03/17/21 12:28 Freq: NEEDED Status: Active Protocol: Document 03/17/21 15:46 AB (Rec: 03/17/21 17:53 [email or web address] PT Summary Assessment and Plan Potential Rehabilitation Potential Good Summary Impairments Pain,ROM,Strength,Balance, Coordination,Sensation,Tone, Cognition,Bed Mobility, Transfers,Gait,Activity Tolerance Progress Towards Goals Slow Progress due to Pain Assessment Summary pt requiring SBA to CGA with ambulation using FWW bu continues to demonstrate decrease activity tolerance with c/o increase back pain with mobility. BP also on the low side of 94/63 but stable. pt plans to go home and family to assist her. Will have to complete stair climbing training prior to d/c home. Goals Bed Mobility Goal Independent Transfer Goal Independent,Front Wheeled Walker Gait Goal Independent,Front Wheel Walker Gait Distance 200 Other Goals up/down 3 steps R rail SBA Days to Meet Goals 5 Frequency of Treatment Frequency Of Treatment Twice a Day Treatment Plan Physical Therapy Treatment Plan Bed Mobility Training,Transfer Training,Gait Training, Therapeutic Exercise,Balance Retraining,Post Op Education, Discharge Planning,Hot or Cold Pack,Neuromuscular Re-ed, Coordination Retraining,Manual Therapy Precautions Lumbar Precautions Log Roll,No Twisting,Limit Bending,Lifting Restriction of 10 lbs,Gait Belt above Incisional Area Recommendations To Nursing Amount of Assist Needed 1 Person Assist Discharge Recommendations PT Discharge Recommendations Home with Assistance Transportation Needs at Discharge Private Vehicle
--- NOTE | 2021-03-17 16:03 | PC.NURSE ---
b/p at start of shift: 88/50. encouraged PO fluids, continues w/ IVF ns at 100/hour. recheck at 1545- 95/55, pulse 64. asymptomatic. tolerated OOB w/ FWW, ambulated around room w/ PT. tolerating RA. dressing to lower spinal incision reinforced, hemovac patent, draining sero-sang. call light w/in reach.
[2021-03-17] MEDS: ACETAMINOPHEN 325 MG TABLET 650 MG PO (18:00)
[2021-03-17] MEDS: SENNOSIDES 8.6 MG TABLET 17.2 MG PO (20:21)
[2021-03-17] MEDS: TRAZODONE 100 MG TABLET 300 MG PO (20:21)
[2021-03-17] MEDS: METOPROLOL IR 50 MG TABLET PO (20:22)
[2021-03-18] VITALS (7 sets, daily range): BP systolic 96–164; BP diastolic 58–75; PULSE 55–82; RESP 18–20; TEMP 36.2–36.8; O2SAT 95–97
[2021-03-18] MEDS: OXYCODONE IR 5 MG TABLET 10 MG PO ×5 (00:55→21:49)
[2021-03-18] MEDS: hydrOXYzine pamoate 25 MG CAPSULE PO ×3 (00:56→13:56)
[2021-03-18] MEDS: ACETAMINOPHEN 325 MG TABLET 650 MG PO ×3 (00:56→16:22)
[2021-03-18] MEDS: SODIUM CHLORIDE 0.9% 1,000 ML 100 ML IV (00:57)
--- NOTE | 2021-03-18 07:29 | PC.NURSE ---
Patients BP's have been low with most recent at 0634 reading 96/58. IV fluids were not DC'd due to the low BP's. Will pass information onto next shift.
--- NOTE | 2021-03-18 08:59 | OT.IPNOTE ---
Spoke to pt regarding OT needs. Pt states none needed as she has all the equipment needs, assist and prior knowledge of education of back precautions from surgery two weeks ago, therefore discharge OT eval orders.
--- NOTE | 2021-03-18 09:39 | DI.RAD.S_ITS ---
PROCEDURE: XR CHEST 1V INDICATIONS: smoker, low O2 sats TECHNIQUE: One view of the chest was acquired. COMPARISON: None. FINDINGS: Surgical changes and devices: None. Lungs and pleura: Minimal left basilar atelectasis and/or infiltrate noted laterally. Low lung volumes accentuate pulmonary interstitium and heart size. Mediastinum: Heart size is enlarged. No vascular congestion. Atherosclerotic vascular calcification noted in the aortic arch. Bones and chest wall: No suspicious bony lesions. Overlying soft tissues appear unremarkable. IMPRESSION: Minimal left basilar atelectasis and/or infiltrate Approved by: Jason Shah M.D. on 03/18/2021 at 10:38
[2021-03-18] MEDS: TRIMETH/SULFA 160/800 (DS) TABLET 1 TAB PO ×2 (10:08→21:54)
[2021-03-18] MEDS: VENLAFAXINE ER 37.5 MG CAP 112.5 MG PO (10:08)
[2021-03-18] MEDS: DOCUSATE 100 MG CAPSULE PO ×2 (10:08→21:53)
[2021-03-18] MEDS: GABAPENTIN 300 MG CAPSULE 600 MG PO ×3 (10:09→21:55)
--- NOTE | 2021-03-18 10:28 | PT.IPTN ---
Current Diagnoses Infection following a procedure, superficial incisional surgical site, initial encounter (03/16/21) Surgery Performed Operation Date: 03/16/21 14:30 Actual Procedures p Incision and Drainage Wound/Spine - Richard Conrad MD Physical Therapy Treatment Note M2 PT-IP Current Condition Start: 03/17/21 12:28 Freq: NEEDED Status: Active Protocol: Document 03/17/21 11:05 AB (Rec: 03/17/21 12:40 AB [id number]) Physical Therapy Current Condition Current Condition Evaluation Date 03/17/21 Treatment Diagnosis s/p I&D lumbar wound; difficulty in walking Onset Date 03/16/21 Precautions Lumbar Precautions Log Roll,No Twisting,Limit Bending,Lifting Restriction of 10 lbs,Gait Belt above Incisional Area M3 PT-IP Subjective Start: 03/17/21 12:28 Freq: NEEDED Status: Active Protocol: Document 03/18/21 09:35 SP (Rec: 03/18/21 13:39 SP [id number]) Subjective Physical Therapy Visit Type Type Treatment Note Visit Start Time 09:35 Visit Stop Time 10:28 Total Visit Minutes 53 Notes PROTECTIVE CLOTHING ISSUER assisted with portable O2 tank and wc follow for safety gait if needed in hallway. Vitals taken during mobility: supine BP 108/53 seated EOB:113/73 HR 63 SaO2 94 % on 3 L post mobility: 150/71 HR 56 99 % on 3L. Number of DEVICE PROCESSING ENGINEER Visits 1 Physical Therapy Visit Comments Patient Comments pt agreed to do PT Patient Goals return home with family to assist her. Therapy Pain Assessment Pain When Pain Assessed During Mobility Pain Present Pain Present Pain Reported Location back Intensity 9 Scale Used Numeric (0 - 10) Description With Movement Pain Behaviors Facial Grimacing,Restlessness Pain Management Techniques Distraction,Modification of Treatment,Re-positioning M4 PT-IP Mobility and Gait Start: 03/17/21 12:28 Freq: NEEDED Status: Active Protocol: Document 03/18/21 09:35 SP (Rec: 03/18/21 13:39 SP [id number]) PT-Bed Mobility Assessment Rolling Type of Rolling Log Rolling Level of Assist Standby Assistance Supine to Sit Supine to Sit Standby Assistance,Bedrails Scooting Scooting to Edge of Bed Standby Assistance PT-Transfer Assessment Sit to and From Stand Sit to and from Stand Standby Assistance,Use of Upper Extremities Equipment Transfer Assistive Device Gait Belt,Front Wheeled Walker Orthotic/Prosthetic Devices or Brace: No Transfers Transfer Destination Chair Transfer Technique ambulated using fWW Transfer Ability Level of Assist Standby Assistance,Use of Upper Extremities Comments Mobility Comments Pt stable vitals with mobility , SaO2 mid 90s on 3L. Elevated supine >sit and scoot to EOB SBA, states has adjustable bed at home. Sit>stand sBA using FWW, step pivot to front chair sBA, denied any dizzinesss. Pt walked further into hallway using fWW SBA with DEVICE PROCESSING ENGINEER and PROTECTIVE CLOTHING ISSUER managing IVpole, portable O2 tank and wc follow for safety trailing gait but not needed to stairs, stood approx 3 min while waiting for another pt to finish stair mgt , declined seated rest Min- Mod BUE WB on FWW stated due to pain in LB. She completed stairs and gait back to room sBA. Pt returned to chair in room SBA. Pt stated pain was 9 /10 throughout mobility, nursing provided pain meds just prior to tx but wanted to mobility anyway. Pt upright in chair with all needs and call light in reach before left. Gait Assessment Gait Gait Assistance Required: Standby Assistance,Contact Guard Assist Distance (Feet) 150 Able to Maintain Weight Bearing Status Yes During Gait Assistive Devices Assistive Device Gait Belt,Front Wheeled Walker Orthotic/Prosthetic Devices or Brace: No Gait Deviations General Gait Pattern Antalgic,Decreased Stride Length,Decreased Feet Clearance,Wide Based Gait Factors Limiting Gait Function Factors Limiting Gait Function Decreased Activity Tolerance, Decreased Strength,Limited Range of Motion,Pain Comments Gait Comments see mobility for details. Stair Climbing Assessment Evaluation Level of Assist On Stairs Contact Guard Assistance Devices Stair Climbing Assistive Devices Left Railing,Right Railing Technique/Endurance Stair Climbing Direction Ascend and Descend Stair Climbing Technique Step to Step Number of Steps Climbed 3 Stair Climbing Set # Repetitions (reps) 2 Comments Stair Climbing Comments Ascend/descend 3 stairs using BHR 1st set and R HR only 2nd set CGA step to patterning, stable. PT-Balance Assessment Sitting Balance and Reactions Static Sitting Balance Ability Normal Dynamic Sitting Balance Ability Good Standing Balance and Reactions Static Standing Balance Ability Good Dynamic Standing Balance Ability Good Device Used FWW M5 PT-IP Objective Assessments Start: 03/17/21 12:28 Freq: NEEDED Status: Active Protocol: Document 03/17/21 11:05 AB (Rec: 03/17/21 12:40 AB [id number]) Orientation Orientation/Cognition Level of Alertness Lethargic Orientation Name Language Function Ability No Deficits Noted Safety Awareness Decreased Safety Awareness Memory Description No Deficits Noted Gross Range of Motion Lower Extremity ROM Assessment Within Functional Limits Strength Lower Extremity Strength Assessment Right Impaired Hip 3+/5 Knee 4-/5 Coordination Assessment Gross Coordination Gross Coordination WNL Sensation Assessment Sensation Gross Sensation WNL Muscle Tone Muscle Tone WNL Yes M6 PT-IP Treatment Start: 03/17/21 12:28 Freq: NEEDED Status: Active Protocol: Document 03/18/21 09:35 SP (Rec: 03/18/21 13:39 SP [id number]) Physical Therapy Treatment Education Education Provided Safety M7 PT-IP Assessment and Plan Start: 03/17/21 12:28 Freq: NEEDED Status: Active Protocol: Document 03/18/21 09:35 SP (Rec: 03/18/21 13:39 SP [id number]) PT Summary Assessment and Plan Potential Rehabilitation Potential Good Status of Condition at Evaluation Evolving Summary Impairments Pain,ROM,Strength,Balance, Coordination,Sensation,Tone, Cognition,Bed Mobility, Transfers,Gait,Activity Tolerance Progress Towards Goals Progressing Toward Goals,Slow Progress due to Pain Assessment Summary Pt required increased time due to contact precaution clothing needs, time for mobility due to pain. SBA during all mobility using FWW, completed stair mgt 1 HR. Pt is ok to return home with family to assist her as needed when medically stable. Goals Bed Mobility Goal Independent Transfer Goal Independent,Front Wheeled Walker Gait Goal Independent,Front Wheel Walker Gait Distance 200 Other Goals up/down 3 steps R rail SBA Days to Meet Goals 5 Frequency of Treatment Frequency Of Treatment Twice a Day Treatment Plan Physical Therapy Treatment Plan Bed Mobility Training,Transfer Training,Gait Training, Therapeutic Exercise,Balance Retraining,Post Op Education, Discharge Planning,Hot or Cold Pack,Neuromuscular Re-ed, Coordination Retraining,Manual Therapy Other Recommendations and Next Treatment Balance activities, gait LRAD. Focus Precautions Lumbar Precautions Log Roll,No Twisting,Limit Bending,Lifting Restriction of 10 lbs,Gait Belt above Incisional Area Recommendations To Nursing Amount of Assist Needed Standby Assistance Discharge Recommendations PT Discharge Recommendations Home with Assistance Transportation Needs at Discharge Private Vehicle
[2021-03-18] MEDS: CLINDAMYCIN 150 MG CAPSULE 300 MG PO ×3 (10:56→22:05)
[2021-03-18] MEDS: NICOTINE 14 PATCH 14 MG TOP (10:56)
--- NOTE | 2021-03-18 12:44 | PM.CN ---
History of Present Illness Consult details Chief complaint: Wound Infection Narrative: I am asked to consult on this 56-year-old female by Dr. Duran for evaluation of hypoxia. Patient is a 56-year-old female status post lumbar wound irrigation and debridement of skin and subcutaneous tissue on the right side with evacuation of a seroma on the left side 2 days ago. The patient was rehabilitating ambulating and found to be markedly hypoxic. She was noted to have a room air sat of 80%. Patient was placed on oxygen with improvement of her oxygenation. Of note the patient has a history of smoking, 42 pack-year history of smoking. She currently is smoking half a pack per day. She states she does have inhalers at home which she does not use. She also has a history of obstructive sleep apnea but has not been using her CPAP. Currently the patient is sitting in the chair and denies any shortness of breath. Specifically she has had no shortness of breath wheezing or cough. She denies any chest pain. Patient was taken off her oxygen during our examination. Her room air saturation was 94-95%. Patient has had no a history of admissions for pulmonary problems. She is not on home oxygen. And other than sleep apnea typically does not have shortness of breath. Patient did have a chest x-ray which showed minimal left basilar atelectasis. She currently is oxygenating well without difficulty. Meds Home Medications and Allergies Home Medications Medication Instructions Recorded Confirmed Type gabapentin 300 mg capsule 600 mg PO TID 03/03/21 03/16/21 History metoprolol tartrate 50 mg tablet 50 mg PO BID 03/03/21 03/16/21 History oxycodone 10 mg tablet 10 mg PO Q4H 03/03/21 03/16/21 History trazodone 300 mg tablet 300 mg PO BEDTIME 03/03/21 03/16/21 History venlafaxine 225 mg tablet,extended 112.5 mg PO DAILY 03/03/21 03/16/21 History release 24 hr famotidine 40 mg tablet (Pepcid) 40 mg PO BEDTIME PRN 03/04/21 03/16/21 History acetaminophen 325 mg tablet 650 mg PO Q6HR PRN #90 tab 03/06/21 03/16/21 Rx Allergies Allergy/AdvReac Type Severity Reaction Status Date / Time adhesive tape Allergy Unknown blisters Verified 03/04/21 07:47 codeine AdvReac Nausea Verified 03/04/21 07:48 Review of Systems Review of Systems Narrative: Ten point review of systems is negative Exam Vital Signs (past 8 hours): - 03/18/21 06:34 03/18/21 09:15 Temperature 97.2 F L 97.1 F L Pulse Rate 56 L 63 Respiratory Rate 18 18 Blood Pressure 96/58 L 98/74 Pulse Oximetry 96 95 Oxygen Delivery Method Room Air,Nasal Cannula Oxygen Flow Rate 0 Narrative Exam Narrative: Pleasant obese female sitting in a chair in no obvious distress HENMT Other: HEENT: Normocephalic atraumatic, extraocular muscles are intact, oropharynx is clear Neck Other: Neck is supple without adenopathy Resp Other: Lungs: Decreased breath sounds with occasional scattered crackles, no wheezes no rhonchi Cardio Other: Cardiac exam: Regular rate and rhythm normal S1-S2 with a 2/6 systolic ejection murmur GI Other: Abdomen: Soft nontender nondistended Neuro Other: Neuro neuro exam nonfocal Extrem Other: Extremities: No edema Objective Labs Result Diagrams: 03/17/21 08:30 03/16/21 10:40 [facility] Medical History Arthritis BMI 40.0-44.9, adult Depression HTN (hypertension) Obesity KEVIN (obstructive sleep apnea) Panic attacks Spinal stenosis Surgical History History of surgery History of surgery Hx of cholecystectomy Social History household members: family Tobacco & Substance Use Smoking Status: Current every day smoker alcohol intake: current Assessment & Plan Assessment & Plan narrative: 56-year-old female status post lumbar wound irrigation, skin and subcutaneous tissue debridement, evacuation of a seroma on the left side. Patient was noted to be hypoxic earlier today with O2 sats of 82% on room air. She currently is saturating well at 93-94% on room air. The patient does have a long history of smoking, 42 pack years. She also has obstructive sleep apnea and morbid obesity. Chest x-ray shows atelectasis. Suspect the patient has transient hypoxemia is multifactorial. Likely related to underlying COPD, and atelectasis postoperatively. She is oxygenating well at this time. Would suggest continued incentive spirometry. And close monitoring. Should the patient develop wheezing would suggest albuterol Atrovent nebulizer s although she is not wheezing at this time. Given the patient's morbid obesity would also recommend reconnecting with [facility] for CPAP therapy at night. Thank you very much for this consultation. Time Spent With Patient Critical Care time: I spent a total of [] minutes of critical care time on this patient's care today; this time is exclusive of procedural time.
--- NOTE | 2021-03-18 13:44 | P.PN_ITS ---
Subjective Subjective Date Patient Seen: 03/18/21 Time Patient Seen: 13:44 Interval history: Pain has been moderate to severe. Patient feels the pain is worsening. Denies fever or chills. No nausea or vomiting. Denies shortness of breath or chest pain. Exam Vital Signs (past 8 hours): - 03/18/21 06:34 03/18/21 09:15 Temperature 97.2 F L 97.1 F L Pulse Rate 56 L 63 Respiratory Rate 18 18 Blood Pressure 96/58 L 98/74 Pulse Oximetry 96 95 Oxygen Delivery Method Room Air,Nasal Cannula Oxygen Flow Rate 0 Narrative Exam Narrative: 56-year-old female resting comfortably in bed in no apparent d istress. Dressing is clean dry and intact. Approximately 3 cm diameter area of erythema and induration, no fluctuance, to the right of the dressing is marked with pen. Neurovascular status is intact bilateral lower extremities. Drain output 35 mL last shift Const General: cooperative Nutritional Appearance: obese Objective Labs Result Diagrams: 03/17/21 08:30 03/16/21 10:40 Labs: [facility] CLIA ID [id number] [address] [place] [address] RUN DATE: 03/18/21 Specimen Inquiry PAGE 1 RUN TIME: 1349 Name: Elise Hurley Age/Sex: 56/F Attend Dr: Richard Conrad MD Unit#: [id number] : 1965Location: 215-1 Re03/16/21 Disch: Status: ADM IN SPEC #: [id number] ISHMAEL: 03/16/21 STATUS: RES REQ #: [id number] SPDESC: RECD: 03/16/[address]: Richard Conrad MD SOURCE: Back ENTR: 03/16/21-[address]: FAX TO: ORDERED: WOUND Cx and GS Procedure Result Verified Site Gram Stain Final 03/16/21- 2211 No Organism Seen No organisms seen White blood cells Few poly WBCs Aerobic Culture for wounds Final 03/18/21- 713 Organism 1 Methicillin Resis Staph Aureus Growth MODERATE Called To: WADE MOCTEZUMA MRSA? YES 1. Methicillin Resis Staph Aureus M.I.C. RX --------- --- * Daptomycin 0.25 S * Vancomycin 1 S * Ciprofloxacin >=8 R * Clindamycin 0.25 S * Doxycycline <=0.5 S * Erythromycin 0.5 S * Gentamicin <=0.5 S * Levofloxacin 4 I * Linezolid 2 S * Moxifloxacin 2 S * Oxacillin Mathew >=4 R * Rifampin <=0.5 S * Tetracycline <=1 S * Trimethoprim/Sulfamethoxazole <=10 S Anaerobic Culture Preliminary 03/18/21- 2 <No reportable results for this procedure> FORMERLY [facility], [facility]–1983 Medical History Arthritis BMI 40.0-44.9, adult Depression HTN (hypertension) Obesity KEVIN (obstructive sleep apnea) Panic attacks Spinal stenosis Surgical History History of surgery History of surgery Hx of cholecystectomy Social History household members: family Smoking Status: Current every day smoker alcohol intake: current Assessment & Plan Post-op Postoperative Procedures: Procedures Operation Date: 03/16/21 14:30 Actual Procedure Side Surgeon p Incision and Drainage Wound/Spine Richard Conrad MD Postoperative status narrative: Stable Postoperative plan narrative: Status post lumbar wound irrigation and debridement of skin and subcutaneous tissue, evacuation of seroma on left-sided wound Continue multimodal pain management. Continue to monitor drain output like to see 20 mL or lower per shift prior to removing and discharging patient Culture results reviewed in patient will be discharged on 14 days of oral antibiotics Patient had an episode of hypoxia working with physical therapy and consultation was done by hospitalist. Encouraged incentive spirometer and close monitoring. If patient should develop wheezing would suggest albuterol Atrovent nebulizer Disposition 1-2 days
--- NOTE | 2021-03-18 14:38 | DIET.PN1 ---
Dietary Progress Note RD to send ONS Ensure Max c lunch and ONS Salo c breakfast to support protein needs in this obese pt c wound infection. Ht: 162.56 cm Wt: 108.862 kg BMI: 41.1 UBW: Last BM: 03/15/21 (03/17/21 14:49) MNA: 8 Jack Score: 21 Diet: 03/16/21 Dinner General (Regular) Diet Diet Modifications: Ensure Max c lunch, Salo c breakfast Percent of last meal consumed (last 48h) Percent Meal Consumed refused breakfast 03/18/21 09:14 Percent Meal Consumed 95 03/17/21 17:35 Percent Meal Consumed 100% 03/17/21 13:43 Labs: RBC 3.61 X10^6/uL (4.0-5.2) L 03/16/21 10:40 Hgb 10.8 g/dL (12.0-16.0) L 03/17/21 08:30 Hct 33.6 % (36-46) L 03/17/21 08:30 Creatinine 0.75 mg/dL (0.52-1.04) 03/16/21 10:40
--- NOTE | 2021-03-18 15:50 | PT.IPTN ---
Current Diagnoses Infection following a procedure, superficial incisional surgical site, initial encounter (03/16/21) Surgery Performed Operation Date: 03/16/21 14:30 Actual Procedures p Incision and Drainage Wound/Spine - Richard Conrad MD Physical Therapy Treatment Note M2 PT-IP Current Condition Start: 03/17/21 12:28 Freq: NEEDED Status: Active Protocol: Document 03/17/21 11:05 AB (Rec: 03/17/21 12:40 AB [id number]) Physical Therapy Current Condition Current Condition Evaluation Date 03/17/21 Treatment Diagnosis s/p I&D lumbar wound; difficulty in walking Onset Date 03/16/21 Precautions Lumbar Precautions Log Roll,No Twisting,Limit Bending,Lifting Restriction of 10 lbs,Gait Belt above Incisional Area M3 PT-IP Subjective Start: 03/17/21 12:28 Freq: NEEDED Status: Active Protocol: Document 03/18/21 15:23 SP (Rec: 03/18/21 16:54 SP [id number]) Subjective Physical Therapy Visit Type Type Treatment Note Visit Start Time 15:23 Visit Stop Time 15:50 Total Visit Minutes 27 Number of GRANULIZING MACHINE OPERATOR Visits 2 Physical Therapy Visit Comments Patient Comments pt agreed to do PT Patient Goals return home with family to assist her. Therapy Pain Assessment Pain When Pain Assessed During Mobility Pain Present Pain Present Pain Reported Location back Intensity 7 Scale Used Numeric (0 - 10) Description With Movement Pain Behaviors Facial Grimacing Pain Management Techniques Apply Cold,Distraction, Modification of Treatment,Re- positioning M4 PT-IP Mobility and Gait Start: 03/17/21 12:28 Freq: NEEDED Status: Active Protocol: Document 03/18/21 15:23 SP (Rec: 03/18/21 16:54 SP [id number]) PT-Transfer Assessment Sit to and From Stand Sit to and from Stand Standby Assistance,Use of Upper Extremities Equipment Transfer Assistive Device Gait Belt,Front Wheeled Walker Orthotic/Prosthetic Devices or Brace: No Transfers Transfer Destination Bed,Chair Transfer Technique ambulated using fWW Transfer Ability Level of Assist Standby Assistance,Use of Upper Extremities Comments Mobility Comments Pt was in bathroom self mobility using FWW when arrived, SBA demonstrating heavy WB on FWW stating due to pain in LB. Pt asked to assess swollen lump in center to L lumbar L4-5 region while standing near sink, noted swelling golfball size, reddness, warm and firm to the touch, GRANULIZING MACHINE OPERATOR notified nursing and aware with physician already notified. Pt continued gait to sink using FWW approx 10 ft total, cued for FWW forward facing positioning to allow contact for safety balance if needed while pt washed and combed hair SBA without UE support approx 10 min normal JELENA, stable no deviations or LOB. Pt returned to sit at end of bed using FWW SBA 5 ft due to needing rest recovery, SBA. Sit>stand SBA use of BUE for self support, donned gown and gloves to walk into hallway with contact precautions as earlier tx, approx 200ft SBA using fWW, moderate> min BUE WB on FWW due to reported LBP and meds taking not as effective as would like same meds take at home, think I need something stronger, especially with this swollen pain, lump in my back. Nursing reported that physican was updated meds and will be looking at current order. Pt returned to chair in room SBA. Pt had call light and all needs in reach before left. Gait Assessment Gait Gait Assistance Required: Standby Assistance Distance (Feet) 200 Able to Maintain Weight Bearing Status Yes During Gait Assistive Devices Assistive Device Gait Belt,Front Wheeled Walker Orthotic/Prosthetic Devices or Brace: No Gait Deviations General Gait Pattern Antalgic,Decreased Stride Length,Decreased Feet Clearance,Flexed Trunk Factors Limiting Gait Function Factors Limiting Gait Function Decreased Activity Tolerance, Decreased Strength,Limited Range of Motion,Pain Comments Gait Comments See mobility comments for details. PT-Balance Assessment Sitting Balance and Reactions Static Sitting Balance Ability Normal Dynamic Sitting Balance Ability Good Standing Balance and Reactions Static Standing Balance Ability Good Dynamic Standing Balance Ability Good Device Used FWW M5 PT-IP Objective Assessments Start: 03/17/21 12:28 Freq: NEEDED Status: Active Protocol: Document 03/17/21 11:05 AB (Rec: 03/17/21 12:40 AB [id number]) Orientation Orientation/Cognition Level of Alertness Lethargic Orientation Name Language Function Ability No Deficits Noted Safety Awareness Decreased Safety Awareness Memory Description No Deficits Noted Gross Range of Motion Lower Extremity ROM Assessment Within Functional Limits Strength Lower Extremity Strength Assessment Right Impaired Hip 3+/5 Knee 4-/5 Coordination Assessment Gross Coordination Gross Coordination WNL Sensation Assessment Sensation Gross Sensation WNL Muscle Tone Muscle Tone WNL Yes M6 PT-IP Treatment Start: 03/17/21 12:28 Freq: NEEDED Status: Active Protocol: Document 03/18/21 15:23 SP (Rec: 03/18/21 16:54 SP [id number]) Physical Therapy Treatment Education Education Provided Safety M7 PT-IP Assessment and Plan Start: 03/17/21 12:28 Freq: NEEDED Status: Active Protocol: Document 03/18/21 15:23 SP (Rec: 03/18/21 16:54 SP [id number]) PT Summary Assessment and Plan Potential Rehabilitation Potential Good Status of Condition at Evaluation Evolving Summary Impairments Pain,ROM,Strength,Balance, Coordination,Sensation,Tone, Cognition,Bed Mobility, Transfers,Gait,Activity Tolerance Progress Towards Goals Progressing Toward Goals,Slow Progress due to Pain Assessment Summary Pt requires cuing for FWW postioning at times for safety positioning at sink. sBA during all mobility, noted mod - Min WB BUE on FWW throughout tx. Pt is ok to return home with family to assist her as needed when medically cleared. Goals Bed Mobility Goal Independent Transfer Goal Independent,Front Wheeled Walker Gait Goal Independent,Front Wheel Walker Gait Distance 200 Other Goals up/down 3 steps R rail SBA Days to Meet Goals 5 Frequency of Treatment Frequency Of Treatment Twice a Day Treatment Plan Physical Therapy Treatment Plan Bed Mobility Training,Transfer Training,Gait Training, Therapeutic Exercise,Balance Retraining,Post Op Education, Discharge Planning,Hot or Cold Pack,Neuromuscular Re-ed, Coordination Retraining,Manual Therapy Other Recommendations and Next Treatment gait with SPC or no AD, Focus balance assessment without UE support. *Contact precautions going in room and pt coming out in hallway. Precautions Lumbar Precautions Log Roll,No Twisting,Limit Bending,Lifting Restriction of 10 lbs,Gait Belt above Incisional Area Recommendations To Nursing Amount of Assist Needed Standby Assistance Discharge Recommendations PT Discharge Recommendations Home with Assistance Transportation Needs at Discharge Private Vehicle
[2021-03-18] MEDS: HYDROMORPHONE 0.5 MG INJ IV ×2 (16:23→21:49)
[2021-03-18] MEDS: METOPROLOL IR 50 MG TABLET PO (21:54)
[2021-03-18] MEDS: SENNOSIDES 8.6 MG TABLET 17.2 MG PO (21:54)
[2021-03-18] MEDS: TRAZODONE 100 MG TABLET 300 MG PO (21:55)
[2021-03-19 00:05] VITALS: BP 107/56; PULSE 57; RESP 18; TEMP 36.3; O2SAT 93
[2021-03-19] MEDS: HYDROMORPHONE 0.5 MG INJ IV ×2 (00:16→12:14)
[2021-03-19] MEDS: OXYCODONE IR 5 MG TABLET 10 MG PO ×5 (01:47→23:28)
[2021-03-19] MEDS: CLINDAMYCIN 150 MG CAPSULE 300 MG PO ×4 (03:41→20:07)
[2021-03-19 04:00] VITALS: BP 106/62; PULSE 69; RESP 18; TEMP 36.4; O2SAT 93
--- NOTE | 2021-03-19 05:53 | PC.NURSE ---
Patient has right back red area. Was reported it was from hemovac discontinuation earlier. Patient stood up to use BR and was c/o right hip/thigh area of semi hardness. Palapated no heat, but did feel firm area she showed me. Patient denies having it there earlier in the shift, and indeed was not noticed by me either.
--- NOTE | 2021-03-19 07:52 | P.PN_ITS ---
Subjective Subjective Date Patient Seen: 03/19/21 Time Patient Seen: 07:53 Interval history: The patient is complaining of moderate pain on her right buttocks and right lower quadrant. She is afraid the infection is spreading. She is complaining of back pain as well. She denies fevers, chills, night sweats. She denies nausea or vomiting. She denies numbness or tingling. Exam Vital Signs (past 8 hours): - 03/19/21 00:05 03/19/21 04:00 Temperature 97.4 F L 97.6 F Pulse Rate 57 L 69 Respiratory Rate 18 18 Blood Pressure 107/56 L 106/62 Pulse Oximetry 93 93 Oxygen Delivery Method Room Air Oxygen Flow Rate 0 Narrative Exam Narrative: 56-year-old female sleeping comfortably in bed. Lumbar incision is clean, dry, intact. There is approximately a 5 cm x 5 cm area of erythema and induration with tenderness to touch with a black demarcation on the right side of her low back, unchanged from line of demarcation. Bilateral lower extremities are grossly intact to light touch. Bilateral lower extremities have intact motor functions. Both legs are warm and dry. SCDs were on and functioning. Bilateral calves are soft, nontender to palpation. She is tender to palpation over her right lateral hip. No pain with active hip flexion. Objective Labs Result Diagrams: 03/17/21 08:30 03/16/21 10:40 PENDING SALE TO [facility] Medical History Arthritis BMI 40.0-44.9, adult Depression HTN (hypertension) Obesity KEVIN (obstructive sleep apnea) Panic attacks Spinal stenosis Surgical History History of surgery History of surgery Hx of cholecystectomy Social History household members: family Smoking Status: Current every day smoker alcohol intake: current Assessment & Plan Post-op Postoperative Procedures: Procedures Operation Date: 03/16/21 14:30 Actual Procedure Side Surgeon p Incision and Drainage Wound/Spine Richard Conrad MD Postoperative plan narrative: Status post lumbar wound irrigation and debridement of skin and subcutaneous tissue, evacuation of seroma on left-sided wound Continue multimodal pain management. Culture results reviewed in patient will be discharged on 14 days of oral antibiotics Patient had an episode of hypoxia working with physical therapy and consultation was done by hospitalist. Encouraged incentive spirometer and close monitoring. If patient should develop wheezing would suggest albuterol Atrovent nebulizer Disposition 1-2 days Continue to watch new right sided lateral hip pain, it does not appear to be infectious at this time.
[2021-03-19 08:05] VITALS: BP 111/63; PULSE 72; RESP 18; TEMP 36.7; O2SAT 93
[2021-03-19] MEDS: GABAPENTIN 300 MG CAPSULE 600 MG PO ×3 (09:25→20:07)
[2021-03-19] MEDS: TRIMETH/SULFA 160/800 (DS) TABLET 1 TAB PO ×2 (09:26→20:08)
[2021-03-19] MEDS: hydrOXYzine pamoate 25 MG CAPSULE 50 MG PO ×4 (09:26→23:28)
[2021-03-19] MEDS: DOCUSATE 100 MG CAPSULE PO ×2 (09:26→20:07)
[2021-03-19] MEDS: VENLAFAXINE ER 37.5 MG CAP 112.5 MG PO (09:26)
--- NOTE | 2021-03-19 09:40 | PT-IP ANOTE ---
940 Pt refused tx, pt states she was in so much pain last night she didn't sleep until 5:00 this morning. Pt c/o pain in low back, right buttocks, groin, thigh and hip area. Pt concerned infection is spreading to those areas. Will check back with pt this afternoon.
[2021-03-19] MEDS: ACETAMINOPHEN 325 MG TABLET 650 MG PO (13:46)
--- NOTE | 2021-03-19 14:15 | PT.IPTN ---
Current Diagnoses Infection following a procedure, superficial incisional surgical site, initial encounter (03/16/21) Surgery Performed Operation Date: 03/16/21 14:30 Actual Procedures p Incision and Drainage Wound/Spine - Richard Conrad MD Physical Therapy Treatment Note M2 PT-IP Current Condition Start: 03/17/21 12:28 Freq: NEEDED Status: Active Protocol: Document 03/17/21 11:05 AB (Rec: 03/17/21 12:40 AB [id number]) Physical Therapy Current Condition Current Condition Evaluation Date 03/17/21 Treatment Diagnosis s/p I&D lumbar wound; difficulty in walking Onset Date 03/16/21 Precautions Lumbar Precautions Log Roll,No Twisting,Limit Bending,Lifting Restriction of 10 lbs,Gait Belt above Incisional Area M3 PT-IP Subjective Start: 03/17/21 12:28 Freq: NEEDED Status: Active Protocol: Document 03/19/21 13:52 CLB (Rec: 03/19/21 14:51 CLB [id number]) Subjective Physical Therapy Visit Type Type Treatment Note Visit Start Time 13:52 Visit Stop Time 14:15 Total Visit Minutes 23 Number of PROGRAM DIRECTOR/MORNING SHOW HOST Visits 3 Physical Therapy Visit Comments Patient Comments pt agreed to do PT Patient Goals return home with family to assist her. Therapy Pain Assessment Pain When Pain Assessed During Mobility Pain Present Pain Present Pain Reported M4 PT-IP Mobility and Gait Start: 03/17/21 12:28 Freq: NEEDED Status: Active Protocol: Document 03/19/21 13:52 CLB (Rec: 03/19/21 14:51 CLB [id number]) PT-Transfer Assessment Sit to and From Stand Sit to and from Stand Standby Assistance,Use of Upper Extremities Equipment Transfer Assistive Device None Orthotic/Prosthetic Devices or Brace: No Transfers Transfer Destination Chair Transfer Ability Level of Assist Standby Assistance,Use of Upper Extremities Comments Mobility Comments Pt stood from chair SBA and trialed ambulation with SPC, pt unable to get proper sequencing, pt trialed gait w/ o AD with woddle gait and increased pain. Pt ambulated with FWW with improved stability, gait quality and improved pain controll. Pt returned to chair sitting SBA. Left pt in reclined chair with all needs within reach. Gait Assessment Gait Gait Assistance Required: Standby Assistance Distance (Feet) 80 Able to Maintain Weight Bearing Status Yes During Gait Assistive Devices Assistive Device Gait Belt,Front Wheeled Walker Orthotic/Prosthetic Devices or Brace: No Gait Deviations General Gait Pattern Antalgic,Decreased Stride Length,Decreased Feet Clearance,Flexed Trunk Factors Limiting Gait Function Factors Limiting Gait Function Decreased Activity Tolerance, Decreased Strength,Limited Range of Motion,Pain Comments Gait Comments See mobility comments for details. PT-Balance Assessment Sitting Balance and Reactions Static Sitting Balance Ability Normal Dynamic Sitting Balance Ability Good Standing Balance and Reactions Static Standing Balance Ability Good Dynamic Standing Balance Ability Good Device Used FWW M5 PT-IP Objective Assessments Start: 03/17/21 12:28 Freq: NEEDED Status: Active Protocol: Document 03/17/21 11:05 AB (Rec: 03/17/21 12:40 AB [id number]) Orientation Orientation/Cognition Level of Alertness Lethargic Orientation Name Language Function Ability No Deficits Noted Safety Awareness Decreased Safety Awareness Memory Description No Deficits Noted Gross Range of Motion Lower Extremity ROM Assessment Within Functional Limits Strength Lower Extremity Strength Assessment Right Impaired Hip 3+/5 Knee 4-/5 Coordination Assessment Gross Coordination Gross Coordination WNL Sensation Assessment Sensation Gross Sensation WNL Muscle Tone Muscle Tone WNL Yes M6 PT-IP Treatment Start: 03/17/21 12:28 Freq: NEEDED Status: Active Protocol: Document 03/18/21 15:23 SP (Rec: 03/18/21 16:54 SP [id number]) Physical Therapy Treatment Education Education Provided Safety M7 PT-IP Assessment and Plan Start: 03/17/21 12:28 Freq: NEEDED Status: Active Protocol: Document 03/19/21 13:52 CLB (Rec: 03/19/21 14:51 CLB [id number]) PT Summary Assessment and Plan Potential Rehabilitation Potential Good Status of Condition at Evaluation Evolving Summary Impairments Pain,ROM,Strength,Balance, Coordination,Sensation,Tone, Cognition,Bed Mobility, Transfers,Gait,Activity Tolerance Progress Towards Goals Progressing Toward Goals,Slow Progress due to Pain Assessment Summary Pt c/o pain and respectfully refused gait in [place]. Pt gait assessed with SPC and no AD and pt with increased pain, will trial 4WW at next tx session. Goals Bed Mobility Goal Independent Transfer Goal Independent,Front Wheeled Walker Gait Goal Independent,Front Wheel Walker Gait Distance 200 Other Goals up/down 3 steps R rail SBA Days to Meet Goals 5 Frequency of Treatment Frequency Of Treatment Twice a Day Treatment Plan Physical Therapy Treatment Plan Bed Mobility Training,Transfer Training,Gait Training, Therapeutic Exercise,Balance Retraining,Post Op Education, Discharge Planning,Hot or Cold Pack,Neuromuscular Re-ed, Coordination Retraining,Manual Therapy Other Recommendations and Next Treatment gait with 4WW, bed mobility, Focus stairs Precautions Lumbar Precautions Log Roll,No Twisting,Limit Bending,Lifting Restriction of 10 lbs,Gait Belt above Incisional Area Recommendations To Nursing Amount of Assist Needed Standby Assistance Discharge Recommendations PT Discharge Recommendations Home with Assistance Transportation Needs at Discharge Private Vehicle
[2021-03-19 15:30] VITALS: BP 126/76; PULSE 62; RESP 16; TEMP 36.3; O2SAT 91
[2021-03-19 19:50] VITALS: BP 137/75; PULSE 67; RESP 17; TEMP 36.1; O2SAT 95
[2021-03-19] MEDS: METOPROLOL IR 50 MG TABLET PO (20:07)
[2021-03-19] MEDS: SENNOSIDES 8.6 MG TABLET 17.2 MG PO (20:08)
[2021-03-19] MEDS: TRAZODONE 100 MG TABLET 300 MG PO (20:08)
[2021-03-19] MEDS: HYDROMORPHONE 4 MG TABLET PO (21:37)
[2021-03-19 23:45] VITALS: BP 117/77; PULSE 57; RESP 18; TEMP 36.6; O2SAT 93
--- NOTE | 2021-03-20 02:26 | PC.NURSE ---
Patient is alert and oriented. Breath sounds diminished with RA sat of 93%. HRR with rate of 57 bpm. Denies nausea. BT hypoactive but reports having had BM yesterday. Denies dysuria, frequency or urgency with urination. Has been independent with mobility and denies weakness or unsteadiness when up to the bathroom; walks without walker to/from bathroom but reports she uses walker for distance. Dressing to back is CDI. Noted to have red, firm area to right upper outer corner of dressing which was previously outlined and is within margins. Also noted small bruise to coccyx. Complained of 7/10 back pain radiating around to right lower quadrant of abdomen; medicated with oxycodone + vistaril and given warm blanket for comfort; is currently asleep. Refuses SCD's so reminded to ankle wave when awake. Puffiness in bilateral ankles. Fall risk score is moderate but alarm not currently in use. Is on contact isolation for MRSA in back wound.
[2021-03-20] MEDS: CLINDAMYCIN 150 MG CAPSULE 300 MG PO ×3 (03:23→14:29)
[2021-03-20] MEDS: hydrOXYzine pamoate 25 MG CAPSULE 50 MG PO ×3 (03:26→12:53)
[2021-03-20] MEDS: HYDROMORPHONE 4 MG TABLET PO ×2 (03:26→08:28)
[2021-03-20 03:40] VITALS: BP 113/63; PULSE 59; RESP 18; TEMP 36.4; O2SAT 94
[2021-03-20] MEDS: ACETAMINOPHEN 325 MG TABLET 650 MG PO ×2 (08:29→14:30)
[2021-03-20] MEDS: TRIMETH/SULFA 160/800 (DS) TABLET 1 TAB PO (08:29)
[2021-03-20] MEDS: VENLAFAXINE ER 37.5 MG CAP 112.5 MG PO (08:29)
[2021-03-20] MEDS: DOCUSATE 100 MG CAPSULE PO (08:29)
[2021-03-20] MEDS: GABAPENTIN 300 MG CAPSULE 600 MG PO ×2 (08:29→14:30)
[2021-03-20 09:30] VITALS: BP 124/73; PULSE 64; RESP 16; TEMP 36.3
[2021-03-20] MEDS: TRAMADOL 50 MG TABLET 100 MG PO ×2 (09:42→14:30)
[2021-03-20] MEDS: METOPROLOL IR 50 MG TABLET PO (09:42)
--- NOTE | 2021-03-20 11:09 | P.DS_ITS ---
History of Present Illness History of Present Illness Date Patient Seen: 03/20/21 Time Patient Seen: 11:09 Chief complaint: Postoperative lumbar wound infection Narrative: The patient is 4 days status post lumbar I and D for postoperative lumbar wound infection. She is complaining of pain, she has a chronic pain management patient. She is currently on clindamycin 300 mg q.i.d. and Bactrim DS b.i.d. for her MRSA positive wound infection. The patient notes she has had 2 episodes of MRSA infections in the past. She is complaining of pain in her right lateral hip as well as her right abdomen. Discharge Providers Provider Date of admission: 03/16/21 07:01 Discharge Date: 03/20/21 Consults: 03/16/21 07:12 Consult to Discharge Planning Routine Comment: 03/16/21 13:25 Consult to Respiratory Therapy Evaluate & Treat Comment: Physician Instructions: Evaluate and treat 03/16/21 17:39 Consult to Occupational Therapy Evaluate & Treat Comment: Physician Instructions: Evaluate and treat Consult to Physical Therapy Evaluate & Treat Comment: Physician Instructions: Evaluate and Treat 03/18/21 09:37 Consult to Respiratory Therapy Evaluate & Treat Comment: h/o smoker, poss home O2 Physician Instructions: Evaluate and treat 03/18/21 09:40 Consult to Hospitalist Service Routine Comment: Consulting Provider: Richard Conrad Reason for consultation: low O2, hypoTN, smoker, MRSA+ wound Discharge provider: Angelina Terry PA-C Summary Hospital Course Discharge Diagnosis: Postoperative lumbar wound infection Hospital Course: Procedure: 1. Lumbar wound irrigation and debridement of skin and subcutaneous tissue of right sided wound 2. Evacuation of seroma on left side wound Same procedure as scheduled: Yes Indications: Ms. Hurley is here for evaluation of worsening pain to her right sided lumbar wound 2 weeks post fusion surgery. She has low grade fever 100.1 and elevated ESR and CRP. MRI showed fluid collection in her wound. Right-sided patient's wound has erythema as well as induration on examination indicating fluid collection underneath. After informed consent was obtained, patient was taken to OR emergently for I&D and wound exploration. Surgeon: Richard Conrad Graduate Research Assistant: Neville Berrios Click Yes if Unassisted: No Anesthesia Type: General Operative Notes Closure Type: primary Specimen(s): none sent Estimated Blood Loss (mL): 70 Blood products transfused: none MRSA + [facility] CLIA ID [id number] [address] [place] [id number] RUN DATE: 03/20/21 Specimen Inquiry PAGE 1 RUN TIME: 1110 Name: Elise Hurley Age/Sex: 56/F Attend Dr: Richard Conrad MD Unit#: [id number] : [id number]: AC 215-1 Re03/16/21 Disch: Status: ADM IN SPEC #: [id number] ISHMAEL: 03/16/21 STATUS: COMP REQ #: [id number] SPDESC: RECD: 03/16/[address]: Richard Conrad MD SOURCE: Back ENTR: 03/16/[address]: FAX TO: ORDERED: WOUND Cx and GS Procedure Result Verified Site Gram Stain Final 03/16/21- 2211 No Organism Seen No organisms seen White blood cells Few poly WBCs Aerobic Culture for wounds Final 03/18/21- 713 Organism 1 Methicillin Resis Staph Aureus Growth MODERATE Called To: WADE MOCTEZUMA MRSA? YES 1. Methicillin Resis Staph Aureus M.I.C. RX --------- --- * Daptomycin 0.25 S * Vancomycin 1 S * Ciprofloxacin >=8 R * Clindamycin 0.25 S * Doxycycline <=0.5 S * Erythromycin 0.5 S * Gentamicin <=0.5 S * Levofloxacin 4 I * Linezolid 2 S * Moxifloxacin 2 S * Oxacillin Mathew >=4 R * Rifampin <=0.5 S * Tetracycline <=1 S * Trimethoprim/Sulfamethoxazole <=10 S Anaerobic Culture Final 03/19/21- 1103 No growth. END OF REPORT Status at Discharge Cognitive/behavioral status at discharge: oriented Functional status at discharge: uses cane/walker Overall status at discharge: patient is progressing back to baseline Exam Vital Signs (past 8 hours): - 03/20/21 03:40 03/20/21 09:30 Temperature 97.5 F L 97.4 F L Pulse Rate 59 L 64 Respiratory Rate 18 16 Blood Pressure 113/63 124/73 Pulse Oximetry 94 Oxygen Delivery Method Room Air Oxygen Flow Rate 0 Narrative Exam Narrative: Pleasant 56-year-old female, resting comfortably in bed, no acute distress. Her lumbar spine demonstrates approximately 5 or 4 cm x 4 cm area of erythema and induration on the right lateral aspect for incision. The erythema has not spread beyond the lines of demarcation. Bilateral lower extremity motor function is grossly intact. Bilateral lower extremity sensation is intact to light touch. Calves are soft, nontender to palpation. Both legs are warm and dry. Objective Labs Result Diagrams: 03/17/21 08:30 03/16/21 10:40 PFSH Medical History Arthritis BMI 40.0-44.9, adult Depression HTN (hypertension) Obesity KEVIN (obstructive sleep apnea) Panic attacks Spinal stenosis Surgical History History of surgery History of surgery Hx of cholecystectomy Social History household members: family Smoking Status: Current every day smoker alcohol intake: current Discharge Assessment & Plan Assessment and Plan Assessment: Progressing as expected status post lumbar irrigation and debridement for postoperative lumbar wound infection. Chronic pain management patient. Plan of Treatment: Discharge home today with p.o. clindamycin 300 mg q.6 hours and Bactrim DS b.i.d. times 14 days each. The patient was given a prescription for tramadol for breakthrough pain. She recently received 120 tablets of Oxy 10 from her normal pain management physician, Dr. Bryant. Therefore I canceled her prescription for Oxy 5 from me today Limit bending, twisting, lifting. Call the office with any wound changes. Keep the incision dry, sponge baths only. Follow-up with Dr. Conrad only in 1-2 weeks Discharge Plan Discharge Plan Patient Disposition: Home Discharge orders & Medications Prescriptions: New acetaminophen 325 mg Tablet 650 mg PO Q6HR MDD Max 9 tabs per day PRN (Reason: Pain, Mild (1-3)) Qty: 90 RF: 0 oxycodone 5 mg Tablet 10 mg PO Q3HR PRN (Reason: Pain, Severe (7-10)) Qty: 60 RF: 0 tramadol 50 mg Tablet 100 mg PO Q4H MDD Max 8 tabs per day PRN (Reason: breakthrough pain, moderate) Qty: 42 RF: 0 sulfamethoxazole-trimethoprim 800-160 mg Tablet 1 tab PO BID Qty: 28 RF: 0 clindamycin HCl 150 mg Capsule 300 mg PO Q6H Qty: 56 RF: 0 hydroxyzine pamoate 25 mg Capsule 50 mg PO Q4HR PRN (Reason: Nausea and spasms) Qty: 30 RF: 0 Continued trazodone 300 mg Tablet 300 mg PO BEDTIME RF: 0 oxycodone 10 mg Tablet 10 mg PO Q4H RF: 0 venlafaxine 225 mg Tablet Extended Release 24hr 112.5 mg PO DAILY RF: 0 gabapentin 300 mg Capsule 600 mg PO TID RF: 0 metoprolol tartrate 50 mg Tablet 50 mg PO BID RF: 0 famotidine [Pepcid] 40 mg Tablet 40 mg PO BEDTIME PRN (Reason: Heartburn) RF: 0 acetaminophen 325 mg Tablet 650 mg PO Q6HR PRN (Reason: Pain, Mild (1-3)) Qty: 90 RF: 0 Follow up/Referrals: Richard Conrad MD [Physician] - ([address] Conrad for postoperative visit) Diet/Activity/Treatments Diet: Diet as Tolerated and Regular Activity: Weight-bearing as tolerated with front wheel walker. Limit bending, twisting, lifting. Cold/Heat Therapy: Use ice as needed for pain Other treatments: Use oxycodone as prescribed by your normal physician. Use tramadol 1-2 tablets as needed for breakthrough pain, in addition to Tylenol Skin/Wound/Dressing Care Skin care: Please call the office if the redness spreads be on the black line Report to your healthcare provider any signs of infection, such as:: chills, fever, night sweats, unusual drainage and unusual redness Dressing: Please keep the dressing clean and dry, sponge baths only. Call the office if there is any increase in drainage or surrounding redness Visit Report/Discharge Packet Instructions: Oxygen Saturation, DI for Oxygen Therapy -- Adult, How to Perform Oxygen Therapy via Cannula, DI for Prescription Opioid Use, DI for Incision and Drainage Stand Alone Forms: Surgery Discharge
[2021-03-20 11:35] VITALS: BP 93/66; PULSE 55; RESP 16; TEMP 36.6; O2SAT 93
[2021-03-20] MEDS: OXYCODONE IR 5 MG TABLET 10 MG PO (12:52)
[2021-03-20] MEDS: OXYCODONE ER 10 MG TAB PO (12:52)
--- NOTE | 2021-03-20 14:29 | PT.IPTN ---
Current Diagnoses Infection following a procedure, superficial incisional surgical site, initial encounter (03/16/21) Surgery Performed Operation Date: 03/16/21 14:30 Actual Procedures p Incision and Drainage Wound/Spine - Richard Conrad MD Physical Therapy Treatment Note M2 PT-IP Current Condition Start: 03/17/21 12:28 Freq: NEEDED Status: Active Protocol: Document 03/17/21 11:05 AB (Rec: 03/17/21 12:40 AB [id number]) Physical Therapy Current Condition Current Condition Evaluation Date 03/17/21 Treatment Diagnosis s/p I&D lumbar wound; difficulty in walking Onset Date 03/16/21 Precautions Lumbar Precautions Log Roll,No Twisting,Limit Bending,Lifting Restriction of 10 lbs,Gait Belt above Incisional Area M3 PT-IP Subjective Start: 03/17/21 12:28 Freq: NEEDED Status: Active Protocol: Document 03/20/21 14:12 CLB (Rec: 03/20/21 16:02 CLB [id number]) Subjective Physical Therapy Visit Type Type Treatment Note Visit Start Time 14:12 Visit Stop Time 14:29 Total Visit Minutes 17 Number of RACE ENGINE BUILDER Visits 4 Physical Therapy Visit Comments Patient Comments pt agreed to do PT Patient Goals return home with family to assist her. Therapy Pain Assessment Pain When Pain Assessed During Mobility Pain Present Pain Present Pain Reported Location back Intensity 7 Scale Used Numeric (0 - 10) Pain Management Techniques Distraction,Modification of Treatment,Re-positioning M4 PT-IP Mobility and Gait Start: 03/17/21 12:28 Freq: NEEDED Status: Active Protocol: Document 03/20/21 14:12 CLB (Rec: 03/20/21 16:02 CLB [id number]) PT-Bed Mobility Assessment Rolling Type of Rolling Log Rolling,Roll to Left Supine to Sit Supine to Sit Standby Assistance PT-Transfer Assessment Sit to and From Stand Sit to and from Stand Standby Assistance,Use of Upper Extremities Equipment Transfer Assistive Device Front Wheeled Walker Orthotic/Prosthetic Devices or Brace: No Transfers Transfer Destination Bed Transfer Ability Level of Assist Standby Assistance,Use of Upper Extremities Comments Mobility Comments Pt in supine agreed to trial stairs. Pt able to get to EOB SBA and stand SBA. Pt required assist donning gown. Pt then ambulated to therapy stairs ~ 135ft w/FWW/SBA, pt climbed three steps with bilateral rails SBA, pt then ambulated back to room. Pt required assist with doffing gown to prevent twisting. Pt sat on EOB SBA and RN entered room to give pt meds. Left pt in RN care. Gait Assessment Gait Gait Assistance Required: Standby Assistance Distance (Feet) 135 Able to Maintain Weight Bearing Status Yes During Gait Assistive Devices Assistive Device Gait Belt,Front Wheeled Walker Orthotic/Prosthetic Devices or Brace: No Gait Deviations General Gait Pattern Antalgic,Decreased Stride Length,Decreased Feet Clearance,Flexed Trunk Factors Limiting Gait Function Factors Limiting Gait Function Decreased Activity Tolerance, Decreased Strength,Limited Range of Motion,Pain Comments Gait Comments See mobility comments for details. Stair Climbing Assessment Evaluation Level of Assist On Stairs Standby Assistance Devices Stair Climbing Assistive Devices Left Railing,Right Railing Technique/Endurance Stair Climbing Direction Ascend and Descend Stair Climbing Technique Step to Step Number of Steps Climbed 3 Stair Climbing Set # Repetitions (reps) 1 M5 PT-IP Objective Assessments Start: 03/17/21 12:28 Freq: NEEDED Status: Active Protocol: Document 03/17/21 11:05 AB (Rec: 03/17/21 12:40 AB [id number]) Orientation Orientation/Cognition Level of Alertness Lethargic Orientation Name Language Function Ability No Deficits Noted Safety Awareness Decreased Safety Awareness Memory Description No Deficits Noted Gross Range of Motion Lower Extremity ROM Assessment Within Functional Limits Strength Lower Extremity Strength Assessment Right Impaired Hip 3+/5 Knee 4-/5 Coordination Assessment Gross Coordination Gross Coordination WNL Sensation Assessment Sensation Gross Sensation WNL Muscle Tone Muscle Tone WNL Yes M6 PT-IP Treatment Start: 03/17/21 12:28 Freq: NEEDED Status: Active Protocol: Document 03/18/21 15:23 SP (Rec: 03/18/21 16:54 SP [id number]) Physical Therapy Treatment Education Education Provided Safety M7 PT-IP Assessment and Plan Start: 03/17/21 12:28 Freq: NEEDED Status: Active Protocol: Document 03/20/21 14:12 CLB (Rec: 03/20/21 16:02 CLB [id number]) PT Summary Assessment and Plan Potential Rehabilitation Potential Good Status of Condition at Evaluation Evolving Summary Impairments Pain,ROM,Strength,Balance, Coordination,Sensation,Tone, Cognition,Bed Mobility, Transfers,Gait,Activity Tolerance Progress Towards Goals Progressing Toward Goals,Slow Progress due to Pain Goals Bed Mobility Goal Independent Transfer Goal Independent,Front Wheeled Walker Gait Goal Independent,Front Wheel Walker Gait Distance 200 Other Goals up/down 3 steps R rail SBA Days to Meet Goals 5 Frequency of Treatment Frequency Of Treatment Twice a Day Treatment Plan Physical Therapy Treatment Plan Bed Mobility Training,Transfer Training,Gait Training, Therapeutic Exercise,Balance Retraining,Post Op Education, Discharge Planning,Hot or Cold Pack,Neuromuscular Re-ed, Coordination Retraining,Manual Therapy Precautions Lumbar Precautions Log Roll,No Twisting,Limit Bending,Lifting Restriction of 10 lbs,Gait Belt above Incisional Area Recommendations To Nursing Amount of Assist Needed Standby Assistance Discharge Recommendations PT Discharge Recommendations Home with Assistance Transportation Needs at Discharge Private Vehicle
--- NOTE | 2021-03-20 17:04 | CM.DPNOTE ---
DC Note DC home w/family to transport and assist in recovery. No needs identified from this USED CAR MAKE READY MECHANIC today. DC order for home in place. RN team working throughout the day on coordinating patient's DC home JW
--- NOTE | 2021-03-20 17:35 | PC.NURSE ---
Pt discharge via wheelchair and escorted by MAINTENANCE SUPERVISOR ELECTRICAL. Dressing to the back changed. INCISION CLEAN WITH MAISHA AND SOME LIGHT REDNESS AROUND IT. IV REMOVED. Pt received discharge instructions and left in stable conditions.
== END 2021-03-20 17:30 | disposition home or self-care (01) | DRG 857 ==
LOC: ICU 12:44 → AC 13:02
PROVIDERS: Admitting Provider Orthopaedic Surgery Orthopaedic Surgery of the Spine; Referring Provider Orthopaedic Surgery Foot and Ankle Surgery; Visit Provider Orthopaedic Surgery Orthopaedic Surgery of the Spine
PROC: 0JB70ZZ Excision of Back Subcutaneous Tissue and Fascia, Open Approach (ICD-10-PCS; CPT 10180; principal; 2021-03-16 14:30)
DX: T81.41XA Infection following a procedure, superficial incisional surgical site, initial encounter (principal); L76.34 Postprocedural seroma of skin and subcutaneous tissue following other procedure; Z68.41 Body mass index [BMI] 40.0-44.9, adult; R09.02 Hypoxemia; E66.01 Morbid (severe) obesity due to excess calories; G47.33 Obstructive sleep apnea (adult) (pediatric); F32.9 Major depressive disorder, single episode, unspecified; B95.62 Methicillin resistant Staphylococcus aureus infection as the cause of diseases classified elsewhere; I10 Essential (primary) hypertension; F17.210 Nicotine dependence, cigarettes, uncomplicated; G89.29 Other chronic pain
CPT/HCPCS: 36415; 71045; 80048; 85014; 85018; 85025; 87070; 87075; 87077; 87147; 87186; 87205; 87797; 97112; 97116; 97162; 97530; 99406; A9270; J0171; J0690; J1170; J1885; J2060; J2250; J2405; J2704; J3010; J3410

== ENCOUNTER 2021-06-25 11:19 | Inpatient (IN) | payer MEDICARE, MEDICAID, SELFPAY ==
[2021-03-16 09:49] VITALS: BMI 41.1
[2021-06-23 09:41] VITALS: BMI 38.8
[2021-06-25] VITALS (15 sets, daily range): BP systolic 102–134; BP diastolic 57–84; PULSE 50–82; RESP 10–18; TEMP 36.4–36.8; O2SAT 90–98; BMI 38.8
--- NOTE | 2021-06-25 | DI.RAD.S_ITS ---
PROCEDURE: XR LUMBAR SPINE 2-3V INDICATIONS: L3-4 TLIF TECHNIQUE: Two intraoperative fluoroscopic views of the lumbar spine were acquired. COMPARISON: [facility], , XR LUMBAR SPINE 2-3V, 03/04/2021, 9:30. FINDINGS: There is suboptimal penetration and films are limited. Two intraoperative fluoroscopic views demonstrate bilateral transpedicular screws and disc spacers in place in the lumbar spine. No visible hardware failure. IMPRESSION: Placement of new L3 bilateral transpedicular screws, L3-4 disc spacer, and probably new stabilization rods. No visible hardware failure. Dictated by: Kendra Arenas M.D. on 06/25/2021 at 17:49 Approved by: Kendra Arenas M.D. on 06/25/2021 at 17:50
[2021-06-25] MEDS: ACETAMINOPHEN 325 MG TABLET 975 MG PO (11:46)
[2021-06-25 11:54] LABS: COVID19 -Nasal RAPID Negative (Negative)
[2021-06-25] MEDS: LACTATED RINGERS 1,000 ML 42 ML IV ×3 (12:15→17:06)
--- NOTE | 2021-06-25 12:36 | PM.PREOP ---
Pre-operative Note COVID-19 COVID-19 status: Negative Result date/Date tested (Pos, Neg/Pending): 06/23/21 Interval Note History & Physical reviewed/Exam performed by Physician: Yes Changes to H&P: No
[2021-06-25] MEDS: VANCOMYCIN 2,000 MG/400 ML PIGGYBACK 200 MG IV (12:52)
--- NOTE | 2021-06-25 12:56 | SUR.PREOP ---
preop-late entry order for vancomycin noted. pharmacy delivered. Started as ordered. patient slightly emotional over potential fears of paralysis post op. emotional support given. Anesthesia now at bedside.
[2021-06-25] MEDS: CEFAZOLIN 2 GM/20 ML SYRINGE IV ×2 (13:40→17:29)
[2021-06-25] MEDS: BUPIVACAINE LIPOSOME 266 MG/20 ML VIAL INJ (14:21)
[2021-06-25] MEDS: BUPIVACAINE 0.25% (PF) 30 ML, EPINEPHrine 0.3 MG INJ (14:21)
--- NOTE | 2021-06-25 18:17 | PM.OP.1 ---
Operative Date/Time/Diagnoses Date of procedure: 06/25/21 Time of procedure: 13:00 Pre-op diagnosis: 1. Spinal stenosis L3-4, L4-5, L5-S1 2. Loosening of hardware L4-5, possible pseudoarthrosis 3. Previous fusion L4-5, L5-S1 Post-op diagnosis: same Procedure & Clinicians Procedure: 1. L3-4 posterolateral and posterior interbody fusion 2. L3-4 posterior interbody cage placement 3. L4-5, L5-S1 posterior non-segmental instrumentation removal 4. L4-5 revision laminectomy with exploration of fusion 5. L3-4, L4-5, L5-S1 posterior segmental instrumentation with pedicle screw placement 6. L4-5 posterolatearl fusion 7. [place] of bone marrow from iliac crest through a separate incision 8. Utilization of microsurgical technique and operating microscope Same procedure as scheduled: Yes Indications: Patient has been having worsening back pain with history of recent lumbar fusion with instrumentation from L4-5 L5-S1. X-ray and CT shows significant hardware loosening at L4 pedicle bilaterally with displacement of the screw into the interbody space at L4 on the right side into the L3-4 disc space. Patient failed multiple conservative management with worsening pain weakness and numbness in her lower extremity. Patient has been having difficulty performing activity of daily living. After discussing risks benefits of treatment options, patient elected proceed with surgery. Surgeon: Richard Conrad Meter/Relay Technician: Angelina Terry Click Yes if Unassisted: No Anesthesia Type: General Operative Notes Closure Type: primary Specimen(s): none sent Prosthetic devices, grafts, tissues, transplants, or devices: Globus revolve screws, Globus CREO MIS screws, Rise cage Applied: catheter Estimated Blood Loss (mL): 400 Blood products transfused: none Complications: none Post-operative Condition: stable Disposition: PACU Plan for aftercare: Admit to inpatient hospital
[2021-06-25] MEDS: HYDROMORPHONE 2 MG INJ IV ×3 (19:11→19:40)
[2021-06-25] MEDS: ONDANSETRON 4 MG/2 ML INJ IV (19:34)
[2021-06-25] MEDS: hydrOXYzine 50 MG/ML INJ 25 MG IM (19:34)
[2021-06-25] MEDS: ALBUTEROL 2.5 MG/3 ML NEB (ADULT) INH (19:34)
--- NOTE | 2021-06-25 19:54 | SUR.PHASEI ---
Assumed care from previous RNAngelica at 7:15 p.m. Patient c/o pain 10/10; assisted other nurse in rolling patient over to assess surgical site. Surgical site with large dressing, clean, dry and intact. Hemovac drain noted. Patient denies any numbness or tingling to extremities. Guerra catheter draining caroline colored urine. 1950: Patient resting with eyes closed; still states pain is 10/10 but seems to be resting easier after 2 mg of IV dilaudid in divided doses. Albuterol neb administered due to coarse breath sounds and history of 1 PPD cigarette consumption. Encouraged deep breathing.
[2021-06-25] MEDS: OXYCODONE IR 5 MG TABLET PO (20:01)
--- NOTE | 2021-06-25 20:06 | SUR.PHASEI ---
Patient resting more comfortabl; vss; encouraged deep breathing; Patient's oxygen saturation 92% on 4 liters via nasal cannula.
[2021-06-25] MEDS: SODIUM CHLORIDE 0.9% 1,000 ML 100 ML IV (21:47)
[2021-06-25] MEDS: HYDROMORPHONE 0.5 MG INJ IV (21:49)
[2021-06-26] MEDS: VANCOMYCIN 1,000 MG/200 ML PIGGYBACK 200 MG IV ×2 (00:44→13:34)
[2021-06-26] MEDS: HYDROMORPHONE 0.5 MG INJ IV ×5 (00:48→13:30)
[2021-06-26 05:01] LABS: Hematocrit 40.5 % (36-46); Hemoglobin 13.3 g/dL (12.0-16.0)
--- NOTE | 2021-06-26 07:59 | P.PN_ITS ---
Subjective Subjective Date Patient Seen: 06/26/21 Time Patient Seen: 07:59 Interval history: The patient is complaining of moderate to severe low back pain this morning, although she is sleepy and has difficulty holding conversation with me. She denies any new numbness or tingling in her lower extremities. Exam Vital Signs (past 8 hours): Oxygen Delivery Method Nasal Cannula Oxygen Flow Rate 6 Narrative Exam Narrative: 48-year-old female, resting in bed, no acute distress. Dressing demonstrates that mild bloody drainage on right lateral incision, no surrounding hematoma appreciated. Bilateral lower extremity SSEPs: Motor functions grossly intact, sensation is grossly intact to light touch, calves are soft and nontender to palpation. Objective Labs Result Diagrams: 06/26/21 04:30 06/25/21 15:33 Labs: Laboratory Results - last 24 hr 06/25/21 06/25/21 06/26/21 11:30 15:33 04:30 Hgb 13.3 Hct 40.5 Creatinine Cancelled Estimated GFR Cancelled SARS-CoV-2 (PCR) Negative [facility] Medical History Anxiety Arthritis BMI 40.0-44.9, adult Depression HTN (hypertension) Obesity KEVIN (obstructive sleep apnea) Panic attacks Spinal stenosis Surgical History History of hernia surgery History of incision and drainage (03/16/21) History of lumbar spinal fusion (03/04/21) History of surgery History of surgery Hx of cholecystectomy Social History household members: family Smoking Status: Current every day smoker alcohol intake: current Assessment & Plan Post-op Postoperative Procedures: Procedures Operation Date: 06/25/21 12:45 Actual Procedure Side Surgeon p L4-S1 lumbar HWR, exploration of fusion, repeat laminectomy, reinsertion of hardware, L3-4 TLIF Richard Conrad MD Postoperative day: 1 Postoperative status: marginal pain control Postoperative status narrative: -stable status post lumbar spine hardware removal, L3-L4, L4-5, L5-S1 TLIF Postoperative plan narrative: -mobilize with PT. Limit bending, lifting, twisting. Weightbearing as tolerated with front wheel walker -continue with O2. She will need a workup for COPD upon hospital discharge -encourage p.o. pain medications, as the patient is a chronic pain management patient -disposition likely in 1-2 days Quality VTE Deep Vein Thrombosis/Pulmonary Embolism Present on Admission: No
[2021-06-26 08:00] VITALS: BP 150/89; PULSE 79; RESP 16; TEMP 36.9; O2SAT 93
[2021-06-26] MEDS: VENLAFAXINE ER 75 MG CAP 150 MG PO (08:09)
[2021-06-26] MEDS: hydrOXYzine pamoate 25 MG CAPSULE PO ×3 (08:09→20:25)
[2021-06-26] MEDS: GABAPENTIN 300 MG CAPSULE 600 MG PO ×3 (08:10→20:24)
[2021-06-26] MEDS: DOCUSATE 100 MG CAPSULE PO ×2 (08:10→20:23)
[2021-06-26] MEDS: OXYCODONE ER 10 MG TAB PO ×2 (08:22→20:24)
[2021-06-26] MEDS: METOPROLOL IR 50 MG TABLET PO ×2 (08:25→20:26)
--- NOTE | 2021-06-26 09:57 | OT.IPNOTE ---
Attempted to see pt for OT eval . Pt able to open her eyes , then closed her eyes again and shook her head when asked to get up for OT eval. To check on pt later again for OT eval.
--- NOTE | 2021-06-26 10:16 | PT.IIE ---
Current Diagnoses Other mechanical complication of other internal orthopedic devices, implants and grafts, initial encounter (06/25/21) Surgery Performed Operation Date: 06/25/21 12:45 Actual Procedures p L4-S1 lumbar HWR, exploration of fusion, repeat laminectomy, reinsertion of hardware, L3-4 TLIF - Richard Conrad MD Medical History (Last Reviewed 06/26/21 @ 08:00 by Angelina Terry PA-C) Anxiety Arthritis BMI 40.0-44.9, adult Depression HTN (hypertension) Obesity KEVIN (obstructive sleep apnea) Panic attacks Spinal stenosis Physical Therapy Inpatient Evaluation/Re-Eval M1 PT/OT-IP Prior Functional Status Start: 06/26/21 11:52 Freq: NEEDED Status: Active Protocol: Document 06/26/21 10:16 AB (Rec: 06/26/21 12:06 AB [email or web address]) Medical Review Prior Functional Status Medical History Reviewed Yes Communication lethargic Mobility and Gait unable to provide info Social History Household Members family Living Arrangements House Number of Floors (Floors) One Floor Number of Stairs To Enter/Railing? 3 steps R rail Home Environment High Toilet,Walk in Shower Home Equipment Front Wheel Walker,Four Wheel Walker,Hand Held Shower,Grab Bars In Shower Additional Social History Comment info above is from last admission EMR (unable to obtain PLOF and home setup today due to pt being lethergic but also with confusion) M2 PT-IP Current Condition Start: 06/26/21 11:52 Freq: NEEDED Status: Active Protocol: Document 06/26/21 10:16 AB (Rec: 06/26/21 12:06 AB [email or web address]) Physical Therapy Current Condition Current Condition Evaluation Date 06/26/21 Treatment Diagnosis s/p L3-4,L4-5, L5-S1 instru; L3-4, 4-5 fusion; difficulty in walking Onset Date 06/25/21 M3 PT-IP Subjective Start: 06/26/21 11:52 Freq: NEEDED Status: Active Protocol: Document 06/26/21 10:16 AB (Rec: 06/26/21 12:06 AB [email or web address]) Subjective Physical Therapy Visit Type Type Initial Evaluation Visit Start Time 10:16 Visit Stop Time 10:50 Total Visit Minutes 39 Number of DOUGHNUT MAKER Visits 0 Therapy Pain Assessment Pain When Pain Assessed At Rest Pain Present Pain Present Pain Reported Location back Scale Used unable to stated pain scale Pain Behaviors Facial Grimacing,Guarding, Holding Area,Moaning, Restlessness Pain Management Techniques Distraction,Modification of Treatment,Re-positioning, Timing of Activity with Medications M4 PT-IP Mobility and Gait Start: 06/26/21 11:52 Freq: NEEDED Status: Active Protocol: Document 06/26/21 10:16 AB (Rec: 06/26/21 12:06 [email or web address]) PT-Bed Mobility Assessment Supine to Sit Supine to Sit Maximum Assistance,Head of Bed Elevated Sit to Supine Sit to Supine Maximum Assistance,2 Person Assistance PT-Transfer Assessment Comments Mobility Comments pt is lethergic but able to open eyes with command. very restless and c/o increase pain . asked regarding PLOF and home set up but pt unable to provide. pt hospitalized for back issues from before and has the same reaction where pt was initially lethargic but wakes up with mobility. pt agreed to try to sit up. continues to require repeated cues to stay alert. completed supine to sit. Opted to have HOB elevated up to assist with bed mobility max A. pt sat on EOB max A and max cues. very restless and c/o increase back pain. pt tolerated ~ 4 min of sitting on EOB. very impulsive and restless. assisted pt back to bed. 2 attempts for log roll sit to supine requiring max A x 2 and max cues. positioned pt in bed total A x 2. call light and table placed within reach. PT-Balance Assessment Sitting Balance and Reactions Static Sitting Balance Ability Fair Dynamic Sitting Balance Ability Poor Standing Balance and Reactions Device Used NT M5 PT-IP Objective Assessments Start: 06/26/21 11:52 Freq: NEEDED Status: Active Protocol: Document 06/26/21 10:16 AB (Rec: 06/26/21 12:06 AB [email or web address]) Orientation Orientation/Cognition Level of Alertness Lethargic Orientation Name Safety Awareness Decreased Safety Awareness Memory Description 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 Gross Range of Motion Lower Extremity ROM Assessment Within Functional Limits Strength Lower Extremity Strength Assessment Bilaterally Impaired Hip 3+/5 Knee 3+/5 Comments Strength Comments c/o pain with BLE movement Muscle Tone Muscle Tone WNL Yes M6 PT-IP Treatment Start: 06/26/21 11:52 Freq: NEEDED Status: Active Protocol: Document 06/26/21 10:16 AB (Rec: 06/26/21 12:06 AB [email or web address]) Physical Therapy Treatment Education Education Provided Precautions,Safety M7 PT-IP Assessment and Plan Start: 06/26/21 11:52 Freq: NEEDED Status: Active Protocol: Document 06/26/21 10:16 AB (Rec: 06/26/21 12:06 [email or web address]) PT Summary Assessment and Plan Potential Rehabilitation Potential Good Status of Condition at Evaluation Evolving Summary Impairments Pain,ROM,Strength,Balance, Coordination,Sensation,Tone, Cognition,Bed Mobility, Transfers,Gait,Activity Tolerance Assessment Summary pt requiring max Ax 2 for bed mobility. Pt is lethargic but when awake, c/o increase back pain and is very impulsive and restless. Pt unable to tolerate much activity and was only able to sit on EOB at this time. will continue to assess progress. Goals Bed Mobility Goal Minimal Assistance Transfer Goal Minimal Assistance,Front Wheeled Walker Gait Goal Minimal Assistance,Front Wheel Walker Gait Distance 50 Other Goals improve bed mobility , transfers and ambulation using FWW 150 ft SBA up/don 3 steps R rail SBA Days to Meet Goals 10 Frequency of Treatment Frequency Of Treatment Twice a Day Treatment Plan Physical Therapy Treatment Plan Bed Mobility Training,Transfer Training,Gait Training, Therapeutic Exercise,Balance Retraining,Post Op Education, Discharge Planning,Hot or Cold Pack,Neuromuscular Re-ed, Coordination Retraining,Manual Therapy Precautions Lumbar Precautions Log Roll,No Twisting,Limit Bending,Lifting Restriction of 10 lbs,Gait Belt above Incisional Area Recommendations To Nursing Amount of Assist Needed Mechanical Lift Discharge Recommendations PT Discharge Recommendations SNF Rehab Transportation Needs at Discharge Wheelchair/Cabulance,Stretcher /Ambulance
[2021-06-26 10:30] VITALS: O2SAT 94
[2021-06-26] MEDS: OXYCODONE IR 5 MG TABLET 10 MG PO ×2 (10:49→16:45)
--- NOTE | 2021-06-26 11:15 | OT.IPNOTE ---
Attempted to see pt again for OT eval and pt refused. To see pt tomorrow for OT eval.
--- NOTE | 2021-06-26 12:01 | CM.IDA ---
Initial DCP Assessment Note Pt is a 56 yo female, resident of [place], [place], now POD#1 from L4-S1 lumbar HWR, exploration of fusion, repeat laminectomy, reinsertion of hardware, L3-[address] Conrad PCP: Nehemias Payer: [facility] Reviewed chart, attempted bedside assessment and patient deeply sleeping. Patient refusing therapies this morning. According to chart review; patient has been able to DC home w/family after recent hospitalizations and plans again to DC home w/her step dtr for assist. Patient has been complaining of severe pain when awake and has been on .5 mg IV Dilaudid Q2h Plan: Home w/family vs SNF (?) depending on progress w/therapy team. CM team following closely SOFI Ramirez Discharge Planning/Care Management CM Discharge Assessment Start: 06/26/21 11:36 Freq: Status: Active Protocol: Document 06/26/21 11:36 JARAD (Rec: 06/26/21 12:01 JARAD [id number]) Discharge Planning Assessment Assigned Immigration Associate SOFI Arroyo DPOA/Assigned Designee Name Erika Xavi dtr P# Contact Information Danay Mckeon dtr P# [phone] Advance Directives? No History Provided By Patient,Medical Record Prior Living Arrangements House Household Members family Type of transporation used prior to Drives own vehicle admit Independent with ADL's Yes Is patient alert and oriented? Yes Comment H/o spinal surgery, h/o lumbar wound and I+D Patient/Family Preference Home with Home Health Comment HH vs SNF depending on progress. [facility] Barriers to Discharge Yes Comment Pain control will slow progress. Patient refusing PT/ OT today, patient lethargic and complaining of out of control pain when awake/alert Discharge Plan Home Additional Comment Awaiting therapy evals and recommendations Medicare Choice List Provided No
[2021-06-26] MEDS: ACETAMINOPHEN 325 MG TABLET 650 MG PO ×2 (13:31→20:24)
[2021-06-26 14:21] VITALS: BP 123/67; PULSE 82; RESP 14; TEMP 37.3; O2SAT 96
--- NOTE | 2021-06-26 14:22 | PT-IP ANOTE ---
Attempted to see pt at 14:22, pt extremely fatigued and difficult to arouse. Attempted to do LE exercises in bed, but pt unable to keep her eyes up to participate.
--- NOTE | 2021-06-26 19:04 | PC.NURSE ---
Pt super lethargic throughout the day, awakening only to moan, occasionally kicks legs. She will answer a couple of short questions and then drifts back to sleep. She is able to take po medications and drinking large amounts of water. She denies n/v. Guerra draining adequate clear yellow urine. Hemovac with scant output. dressing C/D/I to back. PT /OT deffering this afternoon until tomorrow as patient appears to sedated and lethargic to participate. VSS, RRR, remaining on 6 L NC. This evening she wakes up and is talkative. She is able to check messages on her phone and she appears to be at a manageable pain level without groaning/moaning or kicking. Continuous monitoring.
[2021-06-26] MEDS: FAMOTIDINE 20 MG TABLET 40 MG PO (20:23)
[2021-06-26] MEDS: TRAZODONE 100 MG TABLET 300 MG PO (20:24)
[2021-06-26] MEDS: SENNOSIDES 8.6 MG TABLET 17.2 MG PO (20:25)
[2021-06-26 20:38] VITALS: BP 129/71; PULSE 77; RESP 18; O2SAT 96
[2021-06-26] MEDS: SODIUM CHLORIDE 0.9% 1,000 ML 100 ML IV (23:45)
[2021-06-27] VITALS: BP 94/53; PULSE 63; RESP 17; TEMP 36.8; O2SAT 95
[2021-06-27 04:00] VITALS: BP 127/77; PULSE 64; RESP 18; TEMP 36.8; O2SAT 97
[2021-06-27] MEDS: OXYCODONE IR 5 MG TABLET 10 MG PO (04:26)
[2021-06-27] MEDS: ACETAMINOPHEN 325 MG TABLET 650 MG PO ×2 (04:26→20:47)
[2021-06-27] MEDS: hydrOXYzine pamoate 25 MG CAPSULE PO (04:27)
[2021-06-27] MEDS: VANCOMYCIN TROUGH 1 REQUEST MISC (05:30)
[2021-06-27 05:33] LABS: Estimated Glomerular Filt Rate > 60.0 mL/min (>60)
[2021-06-27 05:39] LABS: Vancomycin Trough 7.1 ug/mL (10-20)
[2021-06-27] MEDS: VANCOMYCIN 1,000 MG/200 ML PIGGYBACK 200 MG IV (06:33)
[2021-06-27 08:20] VITALS: BP 139/74; PULSE 67; RESP 16; TEMP 36.7; O2SAT 96
[2021-06-27 09:14] VITALS: O2SAT 95
--- NOTE | 2021-06-27 10:26 | CM.DPNOTE ---
DCP Note According to conversation in multidisciplinary rounds, patient continues to be lethargic; today meds will be adjusted Met w/patient this morning, introduced role. Patient drifts off to sleep often so kept this visit brief. Patient states she will go home w/family, either to her mom and son's home in [place] or to her step dtr's in [place]. Discussed SNF options and patient declines at this time. Patient continues to be quite lethargic and noticeably garbling words. CM team will plan to follow closely and can reassess needs after therapy evals can be completed. JARAD
--- NOTE | 2021-06-27 10:47 | PM.PNPO.1 ---
Subjective Subjective Date Patient Seen: 06/27/21 Time Patient Seen: 10:47 Interval history: Patient is complaining of moderate to severe low back pain. She is unable to work with physical therapy yesterday due to pain. Denies any new numbness or tingling. No fevers, chills, night night sweats. No chest pain or shortness of breath. Exam Vital Signs (past 8 hours): - 06/27/21 04:00 06/27/21 08:20 06/27/21 09:14 Temperature 98.3 F 98.1 F Pulse Rate 64 67 Respiratory Rate 18 16 Blood Pressure 127/77 139/74 Pulse Oximetry 97 96 95 Oxygen Delivery Method Nasal Cannula Oxygen Flow Rate 6 Narrative Exam Narrative: Pleasant 56-year-old female, resting comfortably in bed, no acute distress. Dressing is clean, dry, intact. The Hemovac was removed today an occlusive dressing was placed. Bilateral lower extremities: Motor function is grossly intact, sensation is grossly intact to light touch, calves are soft and nontender to palpation. Objective Labs Result Diagrams: 06/26/21 04:30 06/27/21 05:00 Labs: Laboratory Results - last 24 hr 06/27/21 06/27/21 05:00 05:05 Creatinine 0.87 Estimated GFR > 60.0 Vancomycin Trough 7.1 L [facility] Medical History Anxiety Arthritis BMI 40.0-44.9, adult Depression HTN (hypertension) Obesity KEVIN (obstructive sleep apnea) Panic attacks Spinal stenosis Surgical History History of hernia surgery History of incision and drainage (03/16/21) History of lumbar spinal fusion (03/04/21) History of surgery History of surgery Hx of cholecystectomy Social History household members: family Smoking Status: Current every day smoker alcohol intake: current Assessment & Plan Post-op Postoperative Procedures: Procedures Operation Date: 06/25/21 12:45 Actual Procedure Side Surgeon p L4-S1 lumbar HWR, exploration of fusion, repeat laminectomy, reinsertion of hardware, L3-4 TLIF Richard Conrad MD Postoperative day: 2 Postoperative status: marginal pain control Postoperative status narrative: Slow progress status post lumbar hardware removal with L3-4 L4-5 L5-S1 TLIF Postoperative plan narrative: -mobilize with PT. Limit bending, lifting, twisting. Weightbearing as tolerated front wheel walker -continue vancomycin for 48 hours postoperatively, per Dr. Conrad - continue with current pain regimen. We are trying to balance her pain versus the side effects -patient is still on 6 L of O2 and will be using a CPAP when discharged home -disposition likely in 1-2 days, depending on PT and oxygen. Quality VTE Deep Vein Thrombosis/Pulmonary Embolism Present on Admission: No
[2021-06-27] MEDS: DOCUSATE 100 MG CAPSULE PO ×2 (11:02→20:46)
[2021-06-27] MEDS: VENLAFAXINE ER 75 MG CAP 150 MG PO (11:03)
[2021-06-27] MEDS: GABAPENTIN 300 MG CAPSULE 600 MG PO ×3 (11:03→20:46)
[2021-06-27] MEDS: METOPROLOL IR 50 MG TABLET PO ×2 (11:03→20:47)
--- NOTE | 2021-06-27 11:27 | PT.IPTN ---
Current Diagnoses Other mechanical complication of other internal orthopedic devices, implants and grafts, initial encounter (06/25/21) Surgery Performed Operation Date: 06/25/21 12:45 Actual Procedures p L4-S1 lumbar HWR, exploration of fusion, repeat laminectomy, reinsertion of hardware, L3-4 TLIF - Richard Conrad MD Physical Therapy Treatment Note M2 PT-IP Current Condition Start: 06/26/21 11:52 Freq: NEEDED Status: Active Protocol: Document 06/26/21 10:16 AB (Rec: 06/26/21 12:06 AB [id number]) Physical Therapy Current Condition Current Condition Evaluation Date 06/26/21 Treatment Diagnosis s/p L3-4,L4-5, L5-S1 instru; L3-4, 4-5 fusion; difficulty in walking Onset Date 06/25/21 M3 PT-IP Subjective Start: 06/26/21 11:52 Freq: NEEDED Status: Active Protocol: Document 06/27/21 11:01 KS (Rec: 06/27/21 12:24 KS [id number]) Subjective Physical Therapy Visit Type Type Treatment Note Visit Start Time 11:01 Visit Stop Time 11:27 Total Visit Minutes 26 Notes Co-treat w/ OT Number of COMMISSIONING MANAGER Visits 1 Physical Therapy Visit Comments Patient Comments Pt agreeable to work w/ therapy. Therapy Pain Assessment Pain When Pain Assessed At Rest Pain Present Pain Present Pain Reported M4 PT-IP Mobility and Gait Start: 06/26/21 11:52 Freq: NEEDED Status: Active Protocol: Document 06/27/21 11:01 KS (Rec: 06/27/21 12:24 KS [id number]) PT-Bed Mobility Assessment Supine to Sit Supine to Sit Maximum Assistance,2 Person Assistance,Bedrails Scooting Scooting to Edge of Bed Moderate Assistance PT-Transfer Assessment Sit to and From Stand Sit to and from Stand Moderate Assistance,2 Person Assistance,Use of Upper Extremities Equipment Transfer Assistive Device Gait Belt,Front Wheeled Walker Orthotic/Prosthetic Devices or Brace: No Transfers Transfer Destination Chair Transfer Technique Stand Step Pivot Transfer Ability Level of Assist Moderate Assistance,2 Person Assistance,Use of Upper Extremities Comments Mobility Comments Pt in bed upon arrival from therapy and able to recall 3/3 spinal precautions and on 6LO2 93-95%. Mod A for logroll , Max A x2 for sup<>sit, Mod A for scooting EOB. Pt c/o increased pain w/ mobility. Pt sit<>stand w/ FWW Mod A x2 and cues for hand placement and sequencing. Pt then completed stand step pivot to chair Mod A x2 and cues, Mod A and cues for hand placement required for slow descent into chair. Pt took 3 min seated rest break, O2 93-94% on 6L. She then completed one additional sit<>stand Mod A x2 but then reported increased fatigue and lightheadedness and requested to rest. Pt left in chair w/ all needs in reach and OT in room. Gait Assessment Comments Gait Comments Stand step pivot only Mod A x2 Stair Climbing Assessment Comments Stair Climbing Comments Unable at this time, however pt stating full flight of stairs to enter her [facility] apartment where she plans on going at d/c. PT-Balance Assessment Sitting Balance and Reactions Static Sitting Balance Ability Fair Dynamic Sitting Balance Ability Poor Standing Balance and Reactions Static Standing Balance Ability Fair Dynamic Standing Balance Ability Poor Device Used FWW M5 PT-IP Objective Assessments Start: 06/26/21 11:52 Freq: NEEDED Status: Active Protocol: Document 06/26/21 10:16 AB (Rec: 06/26/21 12:06 AB [id number]) Orientation Orientation/Cognition Level of Alertness Lethargic Orientation Name Safety Awareness Decreased Safety Awareness Memory Description 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 Gross Range of Motion Lower Extremity ROM Assessment Within Functional Limits Strength Lower Extremity Strength Assessment Bilaterally Impaired Hip 3+/5 Knee 3+/5 Comments Strength Comments c/o pain with BLE movement Muscle Tone Muscle Tone WNL Yes M6 PT-IP Treatment Start: 06/26/21 11:52 Freq: NEEDED Status: Active Protocol: Document 06/27/21 11:01 KS (Rec: 06/27/21 12:24 KS [id number]) Physical Therapy Treatment Education Education Provided Precautions,Safety Other Treatments Other Treatment Performed Discussed possibility of SNF vs home, pt open to considering. Pt has multiple stairs to enter home which will be a barrier to d/c home due to her weakness, pain, and low tolerance for activity. M7 PT-IP Assessment and Plan Start: 06/26/21 11:52 Freq: NEEDED Status: Active Protocol: Document 06/27/21 11:01 KS (Rec: 06/27/21 12:24 KS [id number]) PT Summary Assessment and Plan Potential Rehabilitation Potential Good Status of Condition at Evaluation Evolving Summary Impairments Pain,ROM,Strength,Balance, Coordination,Sensation,Tone, Cognition,Bed Mobility, Transfers,Gait,Activity Tolerance Assessment Summary Pt continues to require Mod - MAx A x2 throughout treatment. She is limited by pain, weakness, and low tolerance for activity. Able to complete stand step pivot and 1x sit<> Stand on 6L O2, but unable to participate further due to reported fatigue and lightheadedness. Pt notified therapists that she wants to stay with her DIL, however DIL has many stairs to enter home . At this time, pt would benefit from SNF to improve strength, activity tolerance, ad functional independence before going to stay w/ DIL. Goals Bed Mobility Goal Minimal Assistance Transfer Goal Minimal Assistance,Front Wheeled Walker Gait Goal Minimal Assistance,Front Wheel Walker Gait Distance 50 Other Goals improve bed mobility , transfers and ambulation using FWW 150 ft SBA up/don 3 steps R rail SBA Days to Meet Goals 10 Frequency of Treatment Frequency Of Treatment Twice a Day Treatment Plan Physical Therapy Treatment Plan Bed Mobility Training,Transfer Training,Gait Training, Therapeutic Exercise,Balance Retraining,Post Op Education, Discharge Planning,Hot or Cold Pack,Neuromuscular Re-ed, Coordination Retraining,Manual Therapy Other Recommendations and Next Treatment Further ambulation distance, Focus stair training when appropriate, improve bed mobility and transfers, review precautions. Precautions Lumbar Precautions Log Roll,No Twisting,Limit Bending,Lifting Restriction of 10 lbs,Gait Belt above Incisional Area Recommendations To Nursing Amount of Assist Needed 2 Person Assist Discharge Recommendations PT Discharge Recommendations SNF Rehab Transportation Needs at Discharge Wheelchair/Cabulance,Stretcher /Ambulance
--- NOTE | 2021-06-27 11:39 | OT.IP.EVAL ---
Current Diagnoses Other mechanical complication of other internal orthopedic devices, implants and grafts, initial encounter (06/25/21) Surgery Performed Operation Date: 06/25/21 12:45 Actual Procedures p L4-S1 lumbar HWR, exploration of fusion, repeat laminectomy, reinsertion of hardware, L3-4 TLIF - Richard Conrad MD Past Medical History (Last Reviewed 06/27/21 @ 10:48 by Angelina Terry PA-C) Anxiety Arthritis BMI 40.0-44.9, adult Depression History of hernia surgery History of incision and drainage (03/16/21) History of lumbar spinal fusion (03/04/21) History of surgery History of surgery HTN (hypertension) Hx of cholecystectomy Obesity KEVIN (obstructive sleep apnea) Panic attacks Spinal stenosis Surgical History (Last Reviewed 06/27/21 @ 10:48 by Angelina Terry PA-C) History of hernia surgery History of incision and drainage (03/16/21) History of lumbar spinal fusion (03/04/21) History of surgery History of surgery Hx of cholecystectomy Occupational Therapy Inpatient Evaluation/Re-Eval M1 PT/OT-IP Prior Functional Status Start: 06/26/21 11:52 Freq: NEEDED Status: Active Protocol: Document 06/27/21 12:16 [facility] (Rec: 06/27/21 12:29 [facility] [id number]) Medical Review Prior Functional Status Medical History Reviewed Yes Activities of Daily Living and IADL's Able to care for herself. Social History Household Members family Living Arrangements House Number of Floors (Floors) Two Floors Number of Stairs To Enter/Railing? 2 flight of steps with bilateral rails to get into her step daughter's house, Home Environment Walk in Shower Home Equipment Front Wheel Walker,Four Wheel Walker,Raised Toilet Seat w/ Armrests,Shower Seat with Backrest,Hand Held Shower,Bed Rails,Grab Bars In Shower Additional Social History Comment Pt states going to stand with her step daughter and that her step son in law to be there all the time to assist. M2 OT-IP Current Condition Start: 06/27/21 12:16 Freq: Status: Active Protocol: Document 06/27/21 12:16 [facility] (Rec: 06/27/21 12:29 [facility] [id number]) Occupational Therapy Current Condition Current Condition Evaluation Date 06/27/21 Treatment Diagnosis s/p L3-S1 instru, L3-4, L4-5 fusion, decreased mobility Diagnosis Onset Date 06/25/21 M3 OT- IP Subjective and Pain Start: 06/27/21 12:16 Freq: Status: Active Protocol: Document 06/27/21 12:16 [facility] (Rec: 06/27/21 12:29 [facility] [id number]) OT- Subjective Occupational Therapy Visit Type Type Initial Evaluation Visit Start Time 11:00 Visit Stop Time 11:29 Total Visit Minutes 29 Occupational Therapy Visit Comments Patient Comments Pt agreed to get up as more alert today. Patient/Caregiver Goals TO go to her step daughter's house but agreed to go to skilled rehab if needed. OT Pain Assessment Pain When Pain Assessed At Rest Pain Present Pain Present Pain Reported Location back Intensity 9 M4 OT- IP ADL's Start: 06/27/21 12:16 Freq: Status: Active Protocol: Document 06/27/21 12:16 [facility] (Rec: 06/27/21 12:29 [facility] [id number]) OT ADL-Grooming Comments OT Grooming Comments Pt too tired to complete. Assist to help tie her hair back. OT ADL-Dressing General Eval Lower Body Dressing Ability Maximum Assistance OT ADL-Toileting General Evaluation Toileting Ability Total Assistance Comments OT Toileting Comments Pt has lord in place. OT ADL-Bathing Comments OT Bathing Comments Sponge bath more appropriate at this time. M5 OT- IP IADL's Start: 06/27/21 12:16 Freq: Status: Active Protocol: Document 06/27/21 12:16 [facility] (Rec: 06/27/21 12:29 [facility] [id number]) OT-Instrumental Activities of Daily Living Home Safety Awareness Home Safety Comments Pt a bit groggy but states to stay with her step daughter and son in law and that they will assist her for all her needs. M6 OT- IP Functional Cognition Start: 06/27/21 12:16 Freq: Status: Active Protocol: Document 06/27/21 12:16 [facility] (Rec: 06/27/21 12:29 [facility] [id number]) Cognitive Factors Limiting Selfcare Function Cognitive Ability Level of Alertness Alert Patient Orientation Name,Place,Situation Attention Span Ability Capable of Focused Attention, Capable of Sustained Attention Ability to Follow Commands Able to Follow One Step Commands Cognitive Comments Cognitive Assessment Comments Pt a bit impulsive and needing concrete simple cues to follow. OT- Vision and Hearing OT- Hearing Assessment OT- Hearing Assessment WFL OT- Vision Assessment Visual Acuity Glasses All The Time M7 OT- IP Mobility and Balance Start: 06/27/21 12:16 Freq: Status: Active Protocol: Document 06/27/21 12:16 [facility] (Rec: 06/27/21 12:29 [facility] [id number]) OT- Bed Mobility Assessment Rolling Type of Rolling Roll to Right Level of Assistance Moderate Assistance,1 Person Assistance,Bedrails Supine to Sit Supine to Sit Assist Maximum Assistance,2 Person Assistance OT-Transfer Assessment Sit to and From Stand Sit to and from Stand Moderate Assistance,2 Person Assistance Transfers Transfer Ability Moderate Assistance,2 Person Assistance Technique Transfer Destination Bed,Chair Transfer Technique Stand Step Pivot Devices Transfer Assistive Devices Gait Belt,Front Wheeled Walker Comments Mobility Comments MAX AX 2 to get up from side lying and MODA X 2 to stand and help lower down to the recliner. OT- Balance Assessment Sitting Balance and Reactions Static Sitting Balance Ability Fair Standing Balance and Reactions Static Standing Balance Ability Poor M9 OT- IP Assessment and Plan Start: 06/27/21 12:16 Freq: Status: Active Protocol: Document 06/27/21 12:16 [facility] (Rec: 06/27/21 12:29 [facility] [id number]) OT Summary Assessment and Plan Potential Rehabilitation Potential Good Analytic Complexity at Evaluation Low Summary OT Impairments Pain,Strength,Balance, Functional Cognition, Functional Mobility,Grooming, Dressing,Toileting,Bathing, Toilet Transfers,Shower Transfers,Activity Tolerance Progress Towards Goals Slow Progress due to Pain,Slow Progress due to Activity Tolerance,Slow Progress due to Cognition Assessment Summary Pt low complexity and main barriers are steps, and now needing extensive two person assist for all mobility and ADl needs. Pt at this time would greatly benefit from skilled rehab pending progress and caregiver training. Pt has all ADl equipment from prior back surgery. Goals Grooming Goal Independent Dressing Goal Minimal Assistance Toileting Goal Independent Bathing Goal Minimal Assistance Toilet Transfer Goal Minimal Assistance Shower Transfer Goal Minimal Assistance Patient/Caregiver Education Goal Demonstrate Post-Op Precautions,Caregiver Independent Assisting Patient Days to Meet Goals 15 Frequency of Treatment Frequency Of Treatment Once a Day Treatment Plan OT Treatment Plan ADL Training,Functional Cognition Training,Functional Mobility,Patient/Family Education,Discharge Planning Other Treatment Recommendations and Next Transfer to [facility] MODA X2 Treatment Focus and FWW. Discharge Recommendations OT Discharge Recommendations SNF Rehab,Home vs SNF Other Discharge Recommendations Pending progress and caregiver training possibly home with 24/ assist and home health. Transportation Needs at Discharge Wheelchair/Cabulance
--- NOTE | 2021-06-27 13:18 | PT.IPTN ---
Current Diagnoses Other mechanical complication of other internal orthopedic devices, implants and grafts, initial encounter (06/25/21) Surgery Performed Operation Date: 06/25/21 12:45 Actual Procedures p L4-S1 lumbar HWR, exploration of fusion, repeat laminectomy, reinsertion of hardware, L3-4 TLIF - Richard Conrad MD Physical Therapy Treatment Note M2 PT-IP Current Condition Start: 06/26/21 11:52 Freq: NEEDED Status: Active Protocol: Document 06/26/21 10:16 AB (Rec: 06/26/21 12:06 AB [id number]) Physical Therapy Current Condition Current Condition Evaluation Date 06/26/21 Treatment Diagnosis s/p L3-4,L4-5, L5-S1 instru; L3-4, 4-5 fusion; difficulty in walking Onset Date 06/25/21 M3 PT-IP Subjective Start: 06/26/21 11:52 Freq: NEEDED Status: Active Protocol: Document 06/27/21 13:04 KS (Rec: 06/27/21 13:58 KS [id number]) Subjective Physical Therapy Visit Type Type Treatment Note Visit Start Time 13:04 Visit Stop Time 13:18 Total Visit Minutes 14 Number of LASTING FLOORWORKER Visits 2 Physical Therapy Visit Comments Patient Comments Pt agreeable to work w/ therapy. M4 PT-IP Mobility and Gait Start: 06/26/21 11:52 Freq: NEEDED Status: Active Protocol: Document 06/27/21 13:04 KS (Rec: 06/27/21 13:58 KS [id number]) PT-Bed Mobility Assessment Sit to Supine Sit to Supine Maximum Assistance,1 Person Assistance,Bedrails PT-Transfer Assessment Sit to and From Stand Sit to and from Stand Moderate Assistance,1 Person Assistance,Use of Upper Extremities Equipment Transfer Assistive Device Gait Belt,Front Wheeled Walker Orthotic/Prosthetic Devices or Brace: No Transfers Transfer Destination Bed Transfer Technique Pt ambulated w/ FWW Transfer Ability Level of Assist Moderate Assistance,Maximum Assistance,1 Person Assistance ,Use of Upper Extremities Comments Mobility Comments Pt in chair upon arrival from therapy and reprting fatigue/ requesting to get back into bed. Pt on 6L throughout treatment. Mod A and cues for sit<>stand w/ FWW. Pt then ambulated ~15 ft to other side of bed w/ FWW and Min A. Pt Min A and cues for slow descent w/ bed raised for stand<>sit. Max A and cues for sequencing for sit<>sup and repositioning in bed. Pt able to complete 1x10 bilateral ankle pumps, but then requested to sleep. Pt left in bed w/ all need in reach and bed alarm on. Gait Assessment Gait Gait Assistance Required: Minimum Assistance,1 Person Assist Distance (Feet) 15 Assistive Devices Assistive Device Gait Belt,Front Wheeled Walker Gait Deviations General Gait Pattern Antalgic,Decreased Stride Length,Decreased Feet Clearance Factors Limiting Gait Function Factors Limiting Gait Function Decreased Activity Tolerance, Decreased Strength,Pain,Poor Balance Comments Gait Comments Pt ambulated ~15 ft w/ FWW and Min A, quick approach to fatigue and increase in pain reported. Stair Climbing Assessment Comments Stair Climbing Comments Unable at this time, however pt stating full flight of stairs to enter her [facility] apartment where she plans on going at d/c. PT-Balance Assessment Sitting Balance and Reactions Static Sitting Balance Ability Fair Dynamic Sitting Balance Ability Poor Standing Balance and Reactions Static Standing Balance Ability Fair Dynamic Standing Balance Ability Fair Device Used FWW M5 PT-IP Objective Assessments Start: 06/26/21 11:52 Freq: NEEDED Status: Active Protocol: Document 06/26/21 10:16 AB (Rec: 06/26/21 12:06 AB [id number]) Orientation Orientation/Cognition Level of Alertness Lethargic Orientation Name Safety Awareness Decreased Safety Awareness Memory Description 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 Gross Range of Motion Lower Extremity ROM Assessment Within Functional Limits Strength Lower Extremity Strength Assessment Bilaterally Impaired Hip 3+/5 Knee 3+/5 Comments Strength Comments c/o pain with BLE movement Muscle Tone Muscle Tone WNL Yes M6 PT-IP Treatment Start: 06/26/21 11:52 Freq: NEEDED Status: Active Protocol: Document 06/27/21 13:04 KS (Rec: 06/27/21 13:58 KS [id number]) Physical Therapy Treatment Exercises Exercises Ankle Pumps Education Education Provided Precautions,Safety M7 PT-IP Assessment and Plan Start: 06/26/21 11:52 Freq: NEEDED Status: Active Protocol: Document 06/27/21 13:04 KS (Rec: 06/27/21 13:58 KS [id number]) PT Summary Assessment and Plan Potential Rehabilitation Potential Good Status of Condition at Evaluation Evolving Summary Impairments Pain,ROM,Strength,Balance, Coordination,Sensation,Tone, Cognition,Bed Mobility, Transfers,Gait,Activity Tolerance Assessment Summary Pt showed some improvement in mobility and tolerance for activity this PM. Mod A for sit<>stand, Min A for ~15 ft ambulation w/ FWW, but still requiring Max A for sit<>sup and repositioning. Pt remains limited by weakness, pain, and low tolerance for activity and is still requiring supplemental O2. Will continue to assess pts progress, but at this time will benefit from SNF to improve activtity tolerance and functional mobility. Goals Bed Mobility Goal Minimal Assistance Transfer Goal Minimal Assistance,Front Wheeled Walker Gait Goal Minimal Assistance,Front Wheel Walker Gait Distance 50 Other Goals improve bed mobility , transfers and ambulation using FWW 150 ft SBA up/don 3 steps R rail SBA Days to Meet Goals 10 Frequency of Treatment Frequency Of Treatment Twice a Day Treatment Plan Physical Therapy Treatment Plan Bed Mobility Training,Transfer Training,Gait Training, Therapeutic Exercise,Balance Retraining,Post Op Education, Discharge Planning,Hot or Cold Pack,Neuromuscular Re-ed, Coordination Retraining,Manual Therapy Other Recommendations and Next Treatment Further ambulation distance, Focus stair training when appropriate, improve bed mobility and transfers, review precautions. Precautions Lumbar Precautions Log Roll,No Twisting,Limit Bending,Lifting Restriction of 10 lbs,Gait Belt above Incisional Area Recommendations To Nursing Amount of Assist Needed 2 Person Assist Discharge Recommendations PT Discharge Recommendations SNF Rehab Transportation Needs at Discharge Wheelchair/Cabulance,Stretcher /Ambulance
[2021-06-27 18:07] VITALS: O2SAT 93
[2021-06-27] MEDS: VANCOMYCIN 1,500 MG/300 ML PIGGYBACK 200 MG IV ×2 (18:41→19:37)
[2021-06-27] MEDS: TRAZODONE 100 MG TABLET 300 MG PO (20:46)
[2021-06-27] MEDS: SENNOSIDES 8.6 MG TABLET 17.2 MG PO (20:46)
[2021-06-27] MEDS: OXYCODONE ER 10 MG TAB PO (20:47)
[2021-06-27 20:58] VITALS: BP 142/85; PULSE 74; RESP 18; O2SAT 96
[2021-06-28] VITALS (12 sets, daily range): BP systolic 100–140; BP diastolic 61–92; PULSE 64–79; RESP 14–22; TEMP 36.1–37.1; O2SAT 90–97
--- NOTE | 2021-06-28 09:27 | P.PN_ITS ---
Subjective Subjective Date Patient Seen: 06/28/21 Time Patient Seen: 09:27 Interval history: status post lumbar hardware removal with L3-4 L4-5 L5-S1 TLIF Reports appears more alert on my conversation with her this morning than yesterday. Answers questions appropriately. Pain reasonably controlled. Was able to work with therapy twice yesterday and did some sitting up and rolling over. Continues to utilize nasal cannula oxygen. Uses a CPAP at night. Obst ructive sleep apnea. Plans on discharge home with assist when able Exam Vital Signs (past 8 hours): - 06/28/21 03:52 06/28/21 07:55 06/28/21 08:39 Temperature 96.9 F L 98.0 F Pulse Rate 64 69 Respiratory Rate 16 18 Blood Pressure 114/68 140/92 H Pulse Oximetry 94 97 97 Oxygen Delivery Method Nasal Cannula Oxygen Flow Rate 6 Narrative Exam Narrative: Alert female. Oriented. Answers questions appropriately. Lying in bed no acute distress. Nasal cannula oxygen. Guerra in place. SCDs on the lower extremities. Grossly moving bilateral upper and lower extremities with motor function intact. Will to roll to her side. A dressing inspected intact. Small amount of serous drainage on graft harvest site. Otherwise intact. Calf soft Objective Labs Result Diagrams: 06/26/21 04:30 06/27/21 05:00 [facility] Medical History (Updated 06/28/21 @ 09:34 by Rut Harirs MD) Anxiety Arthritis BMI 40.0-44.9, adult Depression HTN (hypertension) Obesity KEVIN (obstructive sleep apnea) Panic attacks Spinal stenosis Surgical History History of hernia surgery History of incision and drainage (03/16/21) History of lumbar spinal fusion (03/04/21) History of surgery History of surgery Hx of cholecystectomy Social History household members: family Smoking Status: Current every day smoker alcohol intake: current Assessment & Plan Post-op Assessment and plan (1) Pseudarthrosis after fusion or arthrodesis: Assessment and Plan narrative: Status post lumbar fusion with postoperative infection hardware loosening, pseudoarthrosis. Status post I&D and now status post removal of hardware and revision and extension of arthrodesis L3-S1 (2) KEVIN (obstructive sleep apnea): Assessment and Plan narrative: KEVIN and long history of smoking contributes to hypoxia. Satting 97% on 6 L continue to wean oxygen today. Will use CPAP at night and home. Postoperative Procedures: Procedures Operation Date: 06/25/21 12:45 Actual Procedure Side Surgeon p L4-S1 lumbar HWR, exploration of fusion, repeat laminectomy, reinsertion of hardware, L3-4 TLIF Richard Conrad MD Postoperative status: Appears to have better pain control today. Answers questions appropriately. Apparent plus sedation then previous Postoperative status narrative: Slow progress status post lumbar hardware removal with L3-4 L4-5 L5-S1 TLIF Postoperative plan narrative: -mobilize with PT.? Limit bending, lifting, t wisting.? Weightbearing as tolerated front wheel walker? Postoperative antibiotics completed----1 work with therapy yesterday was a 2 person max assist and recommended for a snf. Will work with therapy again today to assess for progress and safe discharge home. Patient does not desire snf placement. - continue with current pain regimen.? We are trying to balance her pain versus the side effects? -patient is still on [place] O2 and will be using a CPAP when discharged home-wean as tolerated. -disposition likely in 1-2 days, depending on PT and oxygen. Postoperative day: 3 Time Spent With Patient Time with patient: less than 15 minutes Quality VTE Deep Vein Thrombosis/Pulmonary Embolism Present on Admission: No
[2021-06-28] MEDS: GABAPENTIN 300 MG CAPSULE 600 MG PO ×3 (10:23→21:15)
[2021-06-28] MEDS: OXYCODONE ER 10 MG TAB PO ×2 (10:23→21:16)
[2021-06-28] MEDS: DOCUSATE 100 MG CAPSULE PO ×2 (10:23→21:15)
--- NOTE | 2021-06-28 10:27 | PT.IPTN ---
Current Diagnoses Obstructive sleep apnea (adult) (pediatric) (06/25/21) Pseudarthrosis after fusion or arthrodesis (06/25/21) Other mechanical complication of other internal orthopedic devices, implants and grafts, initial encounter (06/25/21) Surgery Performed Operation Date: 06/25/21 12:45 Actual Procedures p L4-S1 lumbar HWR, exploration of fusion, repeat laminectomy, reinsertion of hardware, L3-4 TLIF - Richard Conrad MD Physical Therapy Treatment Note M2 PT-IP Current Condition Start: 06/26/21 11:52 Freq: NEEDED Status: Active Protocol: Document 06/26/21 10:16 AB (Rec: 06/26/21 12:06 AB [email or web address]) Physical Therapy Current Condition Current Condition Evaluation Date 06/26/21 Treatment Diagnosis s/p L3-4,L4-5, L5-S1 instru; L3-4, 4-5 fusion; difficulty in walking Onset Date 06/25/21 M3 PT-IP Subjective Start: 06/26/21 11:52 Freq: NEEDED Status: Active Protocol: Document 06/28/21 10:27 KAYLAN (Rec: 06/28/21 11:28 KAYLAN [id number]) Subjective Physical Therapy Visit Type Type Treatment Note Visit Start Time 09:42 Visit Stop Time 10:27 Total Visit Minutes 45 Notes VIRGILIO Meghan was directly supervised by SERA Mancini Number of CARROTING MACHINE OFFBEARER Visits 0 Physical Therapy Visit Comments Patient Comments Pt agreeable to work w/ therapy. Pt feels ready to walk more and try the stairs. Therapy Pain Assessment Pain When Pain Assessed During Mobility Pain Present Pain Present Pain Reported Location back Intensity 7 Scale Used Numeric (0 - 10) Description Aching,Sharp,Throbbing Pain Behaviors Facial Grimacing,Moaning Pain Management Techniques Timing of Activity with Medications M4 PT-IP Mobility and Gait Start: 06/26/21 11:52 Freq: NEEDED Status: Active Protocol: Document 06/28/21 10:27 KAYLAN (Rec: 06/28/21 11:28 JG [id number]) PT-Bed Mobility Assessment Rolling Type of Rolling Roll to Right Supine to Sit Supine to Sit Moderate Assistance,1 Person Assistance,Bedrails Scooting Scooting to Edge of Bed Moderate Assistance PT-Transfer Assessment Sit to and From Stand Sit to and from Stand Minimal Assistance,1 Person Assistance,Use of Upper Extremities Equipment Transfer Assistive Device Gait Belt,Front Wheeled Walker Orthotic/Prosthetic Devices or Brace: No Transfers Transfer Destination Chair,Toilet Transfer Technique amb w/FWW Transfer Ability Level of Assist Minimal Assistance,1 Person Assistance,Use of Upper Extremities Comments Mobility Comments Pt was in bed supine w/HOB elevated upon arrival. Pt was sleepy, but quickly became alert. Pt maintained alert status until the end of session while eating breakfast in her chair when several questions had to be repeated before she answered. Pt req min A to move from sidelying to EOB. Pt transfered EOB > hallway and stairs > room toilet > bedside chair. Pt was able to complete STS CGA standing up and req min A while sitting down for cueing hip hinge, hip placement. Pt managed FWW well w/min A for cueing. Gait Assessment Gait Gait Assistance Required: Minimum Assistance,1 Person Assist Distance (Feet) 380 Able to Maintain Weight Bearing Status Yes During Gait Assistive Devices Assistive Device Gait Belt,Front Wheeled Walker Orthotic/Prosthetic Devices or Brace: No Gait Deviations General Gait Pattern Antalgic,Decreased Stride Length,Decreased Feet Clearance,Lateral Trunk Lean Factors Limiting Gait Function Factors Limiting Gait Function Decreased Activity Tolerance, Decreased Strength,Pain,Poor Balance Comments Gait Comments Pt amb significantly more compared to previous PT sessions. Pt amb min A w/FWW and wc follow. Pt began fatiguing which exacerbated her gait deviations terry lateral weight shifting and decreased foot clearance. Stair Climbing Assessment Evaluation Level of Assist On Stairs Minimal Assistance,1 Person Assistance Devices Stair Climbing Assistive Devices Left Railing,Right Railing Technique/Endurance Stair Climbing Direction Ascend and Descend Stair Climbing Technique Step Over Step Number of Steps Climbed 6 Stair Climbing Set # Repetitions (reps) 2 Comments Stair Climbing Comments Pt ascended leading w/R and descending leading w/L as she said her L LE was having more pain symptoms. Pt use UE and railing significantly during both ascent and descent. Min A was needed for cueing foot placement, upright posture. PT-Balance Assessment Sitting Balance and Reactions Static Sitting Balance Ability Fair Dynamic Sitting Balance Ability Poor Standing Balance and Reactions Static Standing Balance Ability Fair Dynamic Standing Balance Ability Fair Device Used FWW M5 PT-IP Objective Assessments Start: 06/26/21 11:52 Freq: NEEDED Status: Active Protocol: Document 06/26/21 10:16 AB (Rec: 06/26/21 12:06 AB [id number]) Orientation Orientation/Cognition Level of Alertness Lethargic Orientation Name Safety Awareness Decreased Safety Awareness Memory Description 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 Gross Range of Motion Lower Extremity ROM Assessment Within Functional Limits Strength Lower Extremity Strength Assessment Bilaterally Impaired Hip 3+/5 Knee 3+/5 Comments Strength Comments c/o pain with BLE movement Muscle Tone Muscle Tone WNL Yes M6 PT-IP Treatment Start: 06/26/21 11:52 Freq: NEEDED Status: Active Protocol: Document 06/28/21 10:27 JG (Rec: 06/28/21 11:28 J [id number]) Physical Therapy Treatment Exercises Exercises Ankle Pumps,Seated Knee Flexion/Extension Education Education Provided Precautions,Safety M7 PT-IP Assessment and Plan Start: 06/26/21 11:52 Freq: NEEDED Status: Active Protocol: Document 06/28/21 10:27 JG (Rec: 06/28/21 11:33 JG [id number]) PT Summary Assessment and Plan Potential Rehabilitation Potential Good Status of Condition at Evaluation Evolving Summary Impairments Pain,ROM,Strength,Balance, Coordination,Sensation,Tone, Cognition,Bed Mobility, Transfers,Gait,Activity Tolerance Assessment Summary Pt demonstrated significant improvement in ability to amb including stair assessment and training. While pt showed marked improvement in bed mob from max to mod A, cueing and assist is still needed to maintain spinal precautions. Pt showed improvement overall in pain and activity tolerance which, if continued, will allow progression in PT therapeutic activity training. Goals Bed Mobility Goal Minimal Assistance Transfer Goal Minimal Assistance,Front Wheeled Walker Gait Goal Minimal Assistance,Front Wheel Walker Gait Distance 50 Other Goals improve bed mobility , transfers and ambulation using FWW 150 ft SBA up/don 3 steps R rail SBA Days to Meet Goals 10 Frequency of Treatment Frequency Of Treatment Twice a Day Treatment Plan Physical Therapy Treatment Plan Bed Mobility Training,Transfer Training,Gait Training, Therapeutic Exercise,Balance Retraining,Post Op Education, Discharge Planning,Hot or Cold Pack,Neuromuscular Re-ed, Coordination Retraining,Manual Therapy Other Recommendations and Next Treatment Further ambulation training, Focus stair training, improve bed mobility and transfers, review precautions. Precautions Lumbar Precautions Log Roll,No Twisting,Limit Bending,Lifting Restriction of 10 lbs,Gait Belt above Incisional Area Recommendations To Nursing Amount of Assist Needed 2 Person Assist Discharge Recommendations PT Discharge Recommendations Home with Assistance,Home with 24/7 Assist Available,Home Health,SNF Rehab Transportation Needs at Discharge Wheelchair/Cabulance,Stretcher /Ambulance Treatment was provided by Meghan López, VIRGILIO and supervised by Addis Meehan, PT. I personally reviewed this note and agree with its contents.
--- NOTE | 2021-06-28 14:02 | PT.IPTN ---
Current Diagnoses Obstructive sleep apnea (adult) (pediatric) (06/25/21) Pseudarthrosis after fusion or arthrodesis (06/25/21) Other mechanical complication of other internal orthopedic devices, implants and grafts, initial encounter (06/25/21) Surgery Performed Operation Date: 06/25/21 12:45 Actual Procedures p L4-S1 lumbar HWR, exploration of fusion, repeat laminectomy, reinsertion of hardware, L3-4 TLIF - Richard Conrad MD Physical Therapy Treatment Note M2 PT-IP Current Condition Start: 06/26/21 11:52 Freq: NEEDED Status: Active Protocol: Document 06/26/21 10:16 AB (Rec: 06/26/21 12:06 AB [email or web address]) Physical Therapy Current Condition Current Condition Evaluation Date 06/26/21 Treatment Diagnosis s/p L3-4,L4-5, L5-S1 instru; L3-4, 4-5 fusion; difficulty in walking Onset Date 06/25/21 M3 PT-IP Subjective Start: 06/26/21 11:52 Freq: NEEDED Status: Active Protocol: Document 06/28/21 15:43 JG (Rec: 06/28/21 16:05 KAYLAN [id number]) Subjective Physical Therapy Visit Type Type Treatment Note Visit Start Time 13:23 Visit Stop Time 14:01 Total Visit Minutes 38 Notes VIRGILIO Meghan was directly supervised by SERA Mancini Number of PLANT BUYER Visits 0 Physical Therapy Visit Comments Patient Comments Pt felt okay after AM PT session. Pt feels some increase in pain at the incision site. Patient Goals Amb stairs in order to discharge to step-daughter's home Therapy Pain Assessment Pain When Pain Assessed During Mobility Pain Present Pain Present Denied Pain Location back Description Aching,Sharp,Throbbing Pain Behaviors Facial Grimacing,Moaning Pain Management Techniques Timing of Activity with Medications M4 PT-IP Mobility and Gait Start: 06/26/21 11:52 Freq: NEEDED Status: Active Protocol: Document 06/28/21 15:43 JG (Rec: 06/28/21 16:05 JG [id number]) PT-Bed Mobility Assessment Rolling Type of Rolling Log Rolling,Roll to Left Sit to Supine Sit to Supine Moderate Assistance,1 Person Assistance,2 Person Assistance ,Bedrails Scooting Scooting to Edge of Bed Moderate Assistance PT-Transfer Assessment Sit to and From Stand Sit to and from Stand Minimal Assistance,1 Person Assistance,Use of Upper Extremities Equipment Transfer Assistive Device Gait Belt,Front Wheeled Walker Orthotic/Prosthetic Devices or Brace: No Transfers Transfer Destination Bed Transfer Technique amb w/FWW Transfer Ability Level of Assist Minimal Assistance,1 Person Assistance,Use of Upper Extremities Comments Mobility Comments Pt was in bedside chair upon arrival and had remained in chair since AM PT session. Pt was alert and eager to practice more amb and stair training. Pt maintained hip hinge form gained during AM session, but still req cues for foot and hand placement during [id number]. Pt continues having difficulty w/ bed mob specifically w/log rolling and scooting. Pt maintained high 80s/low 90s O2 saturation during amb and stairs w/o O2 support. The lowest dip in O2 saturation was when pt was seated and talking. Gait Assessment Gait Gait Assistance Required: Minimum Assistance,1 Person Assist Distance (Feet) 380 Able to Maintain Weight Bearing Status Yes During Gait Assistive Devices Assistive Device Gait Belt,Front Wheeled Walker Gait Deviations General Gait Pattern Antalgic,Decreased Stride Length,Decreased Feet Clearance,Lateral Trunk Lean Factors Limiting Gait Function Factors Limiting Gait Function Decreased Activity Tolerance, Decreased Strength,Pain,Poor Balance Comments Gait Comments Pt exhibited similar gait deviations as this morning. Pt amb min A w/FWW and O2 saturation monitoring w/o wc follow or oxygen support. Stair Climbing Assessment Evaluation Level of Assist On Stairs Minimal Assistance,1 Person Assistance Devices Stair Climbing Assistive Devices Left Railing,Right Railing Technique/Endurance Stair Climbing Direction Ascend and Descend Stair Climbing Technique Step Over Step Number of Steps Climbed 6 Stair Climbing Set # Repetitions (reps) 2 Comments Stair Climbing Comments Ascended leading w/R, descending leading w/L, increased ability to maintain forward facing trunk and hips during descent. Decreased need for cueing compared to AM PT session. PT-Balance Assessment Sitting Balance and Reactions Static Sitting Balance Ability Fair Dynamic Sitting Balance Ability Poor Standing Balance and Reactions Static Standing Balance Ability Fair Dynamic Standing Balance Ability Fair Device Used FWW M5 PT-IP Objective Assessments Start: 06/26/21 11:52 Freq: NEEDED Status: Active Protocol: Document 06/26/21 10:16 AB (Rec: 06/26/21 12:06 AB [id number]) Orientation Orientation/Cognition Level of Alertness Lethargic Orientation Name Safety Awareness Decreased Safety Awareness Memory Description 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 Gross Range of Motion Lower Extremity ROM Assessment Within Functional Limits Strength Lower Extremity Strength Assessment Bilaterally Impaired Hip 3+/5 Knee 3+/5 Comments Strength Comments c/o pain with BLE movement Muscle Tone Muscle Tone WNL Yes M6 PT-IP Treatment Start: 06/26/21 11:52 Freq: NEEDED Status: Active Protocol: Document 06/28/21 15:43 JG (Rec: 06/28/21 16:05 J [id number]) Physical Therapy Treatment Education Education Provided Precautions,Safety Other Treatments Other Treatment Performed 1. Urr-og-[id number] 2. Supine breathing exercises w/varying arm positions (above head, out to the side, at side) M7 PT-IP Assessment and Plan Start: 06/26/21 11:52 Freq: NEEDED Status: Active Protocol: Document 06/28/21 15:43 JG (Rec: 06/28/21 16:05 JG [id number]) PT Summary Assessment and Plan Potential Rehabilitation Potential Good Status of Condition at Evaluation Evolving Summary Impairments Pain,ROM,Strength,Balance, Coordination,Sensation,Tone, Cognition,Bed Mobility, Transfers,Gait,Activity Tolerance Assessment Summary Pt demonstrated retention of improved functional mobility from AM PT session. Pt still exhibits gait deviations that increase her energy expenditure, however she is able to amb significantly farther compared to previous days. Pt is also demonstrating increased confidence on stairs although she heavily relies on UE and railing use while going at a slow pace. Pt would benefit from focused therapeutic time on bed mobility as she still struggles to avoid twisting during rolling and makes little progress w/bridge> scooting. Goals Bed Mobility Goal Minimal Assistance Transfer Goal Minimal Assistance,Front Wheeled Walker Gait Goal Minimal Assistance,Front Wheel Walker Gait Distance 50 Other Goals improve bed mobility , transfers and ambulation using FWW 150 ft SBA up/don 3 steps R rail SBA Days to Meet Goals 10 Frequency of Treatment Frequency Of Treatment Twice a Day Treatment Plan Physical Therapy Treatment Plan Bed Mobility Training,Transfer Training,Gait Training, Therapeutic Exercise,Balance Retraining,Post Op Education, Discharge Planning,Hot or Cold Pack,Neuromuscular Re-ed, Coordination Retraining,Manual Therapy Other Recommendations and Next Treatment Further ambulation training, Focus stair training, improve bed mobility and transfers, review precautions. Precautions Lumbar Precautions Log Roll,No Twisting,Limit Bending,Lifting Restriction of 10 lbs,Gait Belt above Incisional Area Weight Bearing Status Weight Bearing Status Weight Bear as Tolerated Recommendations To Nursing Amount of Assist Needed 2 Person Assist Discharge Recommendations PT Discharge Recommendations Home with Assistance,Home with 24/ Assist Available,Home Health,SNF Rehab Transportation Needs at Discharge Private Vehicle,Wheelchair/ Cabulance,Stretcher/Ambulance Treatment was provided by Meghan López, VIRGILIO and supervised by Addis Meehan, PT. I personally reviewed this note and agree with its contents.
[2021-06-28] MEDS: OXYCODONE IR 5 MG TABLET 10 MG PO (16:10)
[2021-06-28] MEDS: TRAZODONE 100 MG TABLET 300 MG PO (21:15)
[2021-06-28] MEDS: METOPROLOL IR 50 MG TABLET PO (21:15)
[2021-06-28] MEDS: SENNOSIDES 8.6 MG TABLET 17.2 MG PO (21:16)
[2021-06-28] MEDS: VENLAFAXINE ER 75 MG CAP 150 MG PO (21:16)
--- NOTE | 2021-06-29 02:44 | PC.NURSE ---
Pt accidentally removed IV, refusing insertion of new IV access.
[2021-06-29 03:15] VITALS: BP 111/64; PULSE 72; RESP 14; TEMP 36.9; O2SAT 96
--- NOTE | 2021-06-29 07:42 | P.DS_ITS ---
History of Present Illness History of Present Illness Date Patient Seen: 06/29/21 Time Patient Seen: 07:42 Chief complaint: Low back pain s/p hardware removal + TLIF revision Narrative: Patient is complaining of moderate low back pain this morning. She denies any fevers, chills, night sweats. No new numbness or tingling. She would like to be discharged home today there steps daughter's house. She is still on nasal cannula O2 in using a CPAP. Discharge Providers Provider Date of admission: 06/25/21 11:19 Discharge Date: 06/29/21 Consults: 06/25/21 17:39 Consult to Respiratory Therapy Evaluate & Treat Comment: s/p TLIF redo; smoker; poss COPD; narc dependent Physician Instructions: Evaluate and treat 06/25/21 20:28 Consult to Occupational Therapy Evaluate & Treat Comment: Physician Instructions: Evaluate and treat Consult to Physical Therapy Evaluate & Treat Comment: Physician Instructions: Evaluate and Treat Discharge provider: Angelina Terry PA-C Summary Hospital Course Discharge Diagnosis: 1. Spinal stenosis L3-4, L4-5, L5-S1 2. Loosening of hardware L4-5, possible pseudoarthrosis 3. Previous fusion L4-5, L5-S1 Hospital Course: Date of procedure: 06/25/21 Time of procedure: 13:00 Procedure & Clinicians Procedure: 1. L3-4 posterolateral and posterior interbody fusion 2. L3-4 posterior interbody cage placement 3. L4-5, L5-S1 posterior non-segmental instrumentation removal 4. L4-5 revision laminectomy with exploration of fusion 5. L3-4, L4-5, L5-S1 posterior segmental instrumentation with pedicle screw plac ement 6. L4-5 posterolatearl fusion 7. Clover of bone marrow from iliac crest through a separate incision 8. Utilization of microsurgical technique and operating microscope Same procedure as scheduled: Yes Indications: Patient has been having worsening back pain with history of recent lumbar fusion with instrumentation from L4-5 L5-S1. X-ray and CT shows significant hardware loosening at L4 pedicle bilaterally with displacement of the screw into the interbody space at L4 on the right side into the L3-4 disc space. Patient failed multiple conservative management with worsening pain weakness and numbness in her lower extremity.? Patient has been having difficulty performing activity of daily living.? After discussing risks benefits of treatment options, patient elected proceed with surgery. Surgeon: Richard Conrad El Teacher: Angelina Terry Click Yes if Unassisted: No Anesthesia Type: General Operative Notes Closure Type: primary Specimen(s): none sent Prosthetic devices, grafts, tissues, transplants, or devices: Globus revolve screws, Globus CREO MIS screws, Rise cage Applied: catheter Estimated Blood Loss (mL): 400 Blood products transfused: none Status at Discharge Cognitive/behavioral status at discharge: oriented Functional status at discharge: uses cane/walker Overall status at discharge: patient is progressing back to baseline Exam Vital Signs (past 8 hours): - 06/29/21 03:15 Temperature 98.4 F Pulse Rate 72 Respiratory Rate 14 Blood Pressure 111/64 Pulse Oximetry 96 Oxygen Delivery Method Room Air Oxygen Flow Rate 0 Narrative Exam Narrative: Pleasant 56-year-old female, resting comfortably in bed, no acute distress. Nasal cannula is in place with an oxygen flow rate of 1/2 L. dressing is clean, dry, intact, no surrounding erythema or excessive warmth. Bilateral lower extremities: Motor function is grossly intact, gross sensation is grossly intact to light touch, calves are soft and nontender palpation. Objective Labs Result Diagrams: 06/26/21 04:30 06/27/21 05:00 [facility] Medical History Anxiety Arthritis BMI 40.0-44.9, adult Depression HTN (hypertension) Obesity KEVIN (obstructive sleep apnea) Panic attacks Spinal stenosis Surgical History History of hernia surgery History of incision and drainage (03/16/21) History of lumbar spinal fusion (03/04/21) History of surgery History of surgery Hx of cholecystectomy Social History household members: family Smoking Status: Current every day smoker alcohol intake: current Discharge Assessment & Plan Assessment and Plan Assessment: Stable status post TLIF hardware removal plus revision Plan of Treatment: -mobilize with PT. Limit bending, lifting, twisting. Weightbearing as tolerated front wheel walker -patient is on nasal cannula O2 at 2 liters/minute and using a CPAP. She will likely need to be discharged home with both of these and follow up with her primary care on how to wean off of them -continue with current pain regimen. 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 She is not requesting a current prescription for this. -tentative DC home today once cleared by PT and nasal cannula oxygen is ordered for home Discharge Plan Discharge Plan Patient Disposition: Home Discharge orders & Medications Prescriptions: New acetaminophen 500 mg capsule 500 mg PO Q4H MDD Max 3000 mg per day PRN (Reason: Pain, Mild (1-3)) Qty: 90 0RF docusate sodium 100 mg Capsule 100 mg PO BID PRN (Reason: Constipation from narcotic pain meds) Qty: 30 0RF Continued oxycodone [OxyContin] 10 mg Tablet,Oral Only,Ext.Rel.12 Hr See Rx Instructions .ROUTE .COMPLEX Qty: 15 0RF Rx Instructions: Take 1 tablet every 12 hours x5 days, then take 1 tablet at night x5 days as needed for severe pain trazodone 300 mg Tablet 300 mg PO BEDTIME 0RF Rx Instructions: With food gabapentin 300 mg Capsule 600 mg PO TID 0RF metoprolol tartrate 50 mg Tablet 50 mg PO BID 0RF famotidine [Pepcid] 40 mg Tablet 40 mg PO BEDTIME PRN (Reason: Heartburn) 0RF venlafaxine 150 mg Capsule,Extended Release 24hr 150 mg PO DAILY 0RF Follow up/Referrals: Richard Conrad MD [Physician] - (10-14 days for postoperative visit) Diet/Activity/Treatments Diet: Diet as Tolerated and Regular Oxygen: O2 + CPAP for home Other treatments: Medications: -OTC Tylenol 500 mg 1 tablet every 4 hours as needed for pain/fever. Max 6 tablets per day. -Oxycodone per PCP recommendation. -As needed medications: -Ducolax and /or MiraLax as needed for constipation from narcotic pain medications. -Pepcid AC as needed for stomach upset. Dressing/Wound care: -Keep dressing in place until postoperative follow-up office visit. -Okay to shower. Keep wound out of direct water stream. Can use PressNSeal plastic wrap to protect from shower stream. No soaking or submerging until all the scabs fall off (approximately 6 weeks). -Please call the office if dressing becomes wet, soiled, or saturated. Activities: -Limit bending, lifting, twisting. -Weight-bearing as tolerated. Use front wheeled walker, and progress to cane when safe. -Continue with home exercises as directed by your physical therapist. -Ice your incision as needed for pain/inflammation/swelling. Protect your skin with a folded pillowcase. Follow-up: -Follow-up with your surgeon or PA in the office in 10-14 days after surgery. -Follow-up with your surgeon 6 weeks postoperatively. *Need to contact PCP to help wean off O2* Call the office if you have chest pain, shortness of breath, significant swelling that will not resolve with elevating, fever over 101?, significantly worsening pain. [facility]: [phone] Skin/Wound/Dressing Care Report to your healthcare provider any signs of infection, such as:: chills, fever, night sweats, unusual drainage and unusual redness Visit Report/Discharge Packet Instructions: DI for Prescription Opioid Use, DI for Transforaminal Lumbar Interbody Fusion Stand Alone Forms: Surgery Discharge Quality VTE Deep Vein Thrombosis/Pulmonary Embolism Present on Admission: No
[2021-06-29 07:45] VITALS: BP 104/66; PULSE 67; RESP 18; TEMP 36.4; O2SAT 91
[2021-06-29] MEDS: DOCUSATE 100 MG CAPSULE PO (08:49)
[2021-06-29] MEDS: GABAPENTIN 300 MG CAPSULE 600 MG PO (08:49)
[2021-06-29] MEDS: METOPROLOL IR 50 MG TABLET PO (08:50)
[2021-06-29] MEDS: OXYCODONE ER 10 MG TAB PO (09:16)
--- NOTE | 2021-06-29 10:17 | OT.IP.TRT ---
Current Diagnoses Obstructive sleep apnea (adult) (pediatric) (06/25/21) Pseudarthrosis after fusion or arthrodesis (06/25/21) Other mechanical complication of other internal orthopedic devices, implants and grafts, initial encounter (06/25/21) Surgery Performed Operation Date: 06/25/21 12:45 Actual Procedures p L4-S1 lumbar HWR, exploration of fusion, repeat laminectomy, reinsertion of hardware, L3-4 TLIF - Richard Conrad MD Occupational Therapy Treatment Note M2 OT-IP Current Condition Start: 06/27/21 12:16 Freq: Status: Active Protocol: Document 06/27/21 12:16 [facility] (Rec: 06/27/21 12:29 [facility] [id number]) Occupational Therapy Current Condition Current Condition Evaluation Date 06/27/21 Treatment Diagnosis s/p L3-S1 instru, L3-4, L4-5 fusion, decreased mobility Diagnosis Onset Date 06/25/21 M3 OT- IP Subjective and Pain Start: 06/27/21 12:16 Freq: Status: Active Protocol: Document 06/29/21 09:38 [facility] (Rec: 06/29/21 12:12 [facility] [id number]) OT- Subjective Occupational Therapy Visit Type Type Treatment Note Visit Start Time 09:38 Visit Stop Time 10:17 Total Visit Minutes 39 Occupational Therapy Visit Comments Patient Comments Pt wanting to use the toilet. Patient/Caregiver Goals TO go home. OT Pain Assessment Pain When Pain Assessed At Rest Pain Present Pain Present Pain Reported Location back Intensity 7 Scale Used Numeric (0 - 10) M4 OT- IP ADL's Start: 06/27/21 12:16 Freq: Status: Active Protocol: Document 06/29/21 09:38 [facility] (Rec: 06/29/21 12:12 [facility] [id number]) OT ADL-Grooming General Evaluation Grooming Ability Standby Assistance Comments OT Grooming Comments While standing at the sink. OT ADL-Oral Care Comments Oral Care Comments vc to spit into a cup to best follow her back precautions. OT ADL-Toileting General Evaluation Toileting Ability Standby Assistance Comments OT Toileting Comments SBA for set-up of wipes and pt able to wipe and follow her back precautions. Pt needing assist to help clean her hands as got feces on her hand while wiping. Pt states has baby wipes to use at her step daughter's house. Pt states at her step daughter's house bathroom doorway in too narrow to use the FWW' The bathroom is small enough to hang onto surfaces to get in. Suggested to have someone with her and try first to get in without the FWW or get a BSC. OT ADL-Bathing Comments OT Bathing Comments Pt states showered yesterday and to have her swivel shower chair to use at her step daugther's house. M6 OT- IP Functional Cognition Start: 06/27/21 12:16 Freq: Status: Active Protocol: Document 06/29/21 09:38 [facility] (Rec: 06/29/21 12:12 [facility] [id number]) Cognitive Factors Limiting Selfcare Function Cognitive Comments Cognitive Assessment Comments Pt more alert and thinking clearer. Pt still at times a little impulsive and needing to incorporate her back precautions for all needs. M7 OT- IP Mobility and Balance Start: 06/27/21 12:16 Freq: Status: Active Protocol: Document 06/29/21 09:38 [facility] (Rec: 06/29/21 12:12 [facility] [id number]) OT- Bed Mobility Assessment Rolling Level of Assistance Standby Assistance,1 Person Assistance,Bedrails Supine to Sit Supine to Sit Assist Standby Assistance,1 Person Assistance,Bedrails OT-Transfer Assessment Sit to and From Stand Sit to and from Stand Contact Guard Assistance Transfers Transfer Ability Standby Assistance Technique Transfer Destination Bed,Toilet Transfer Technique Stand Step Pivot Devices Transfer Assistive Devices Gait Belt,Front Wheeled Walker Comments Mobility Comments CGA to hold FWW in place when pt coming to stand. OT- Balance Assessment Sitting Balance and Reactions Static Sitting Balance Ability Good Dynamic Sitting Balance Ability Good Standing Balance and Reactions Static Standing Balance Ability Good M9 OT- IP Assessment and Plan Start: 06/27/21 12:16 Freq: Status: Active Protocol: Document 06/29/21 09:38 [facility] (Rec: 06/29/21 12:12 [facility] [id number]) OT Summary Assessment and Plan Potential Rehabilitation Potential Good Analytic Complexity at Evaluation Low Summary OT Impairments Pain,Functional Mobility, Dressing,Toileting,Bathing Progress Towards Goals Progressing Toward Goals Assessment Summary Pt much improved with all Adl and mobility needs and looking to go home today with her family to be able to assist her 07/02. Goals Grooming Goal Independent Dressing Goal Independent Toileting Goal Independent Bathing Goal Independent Toilet Transfer Goal Independent Shower Transfer Goal Independent Patient/Caregiver Education Goal Demonstrate Post-Op Precautions,Caregiver Independent Assisting Patient Days to Meet Goals 10 Frequency of Treatment Frequency Of Treatment Once a Day Treatment Plan OT Treatment Plan ADL Training,Functional Cognition Training,Functional Mobility,Patient/Family Education,Discharge Planning Discharge Recommendations OT Discharge Recommendations Home with 07/02 Assist Available Transportation Needs at Discharge Private Vehicle
--- NOTE | 2021-06-29 11:00 | CM.DPC ---
DCP/continued: Reviewed chart. Order obtained from orthopedic team for patient to d/c home today. SAND TEMPERER met with patient explained CM/SW role. Patient alert and oriented at time of visit and reports that she is happy to go home today. Patient reports that she will have family with her upon d/c. Patient reports that she has all the needed DME. Patient evaluated for home 02 today and it was determined that it was not needed. Patient reports that she does use CPAP at home but would like new one. SAND TEMPERER encouraged patient to discuss this with her PCP. Patient agreeable. Patient reports that her family will be picking her up. RN updated and patient expected to d/c this afternoon. P: Home today. DEYA
--- NOTE | 2021-06-29 11:08 | PT.IPTN ---
Current Diagnoses Obstructive sleep apnea (adult) (pediatric) (06/25/21) Pseudarthrosis after fusion or arthrodesis (06/25/21) Other mechanical complication of other internal orthopedic devices, implants and grafts, initial encounter (06/25/21) Surgery Performed Operation Date: 06/25/21 12:45 Actual Procedures p L4-S1 lumbar HWR, exploration of fusion, repeat laminectomy, reinsertion of hardware, L3-4 TLIF - Richard Conrad MD Physical Therapy Treatment Note M2 PT-IP Current Condition Start: 06/26/21 11:52 Freq: NEEDED Status: Active Protocol: Document 06/26/21 10:16 [facility] (Rec: 06/26/21 12:06 [facility] [email or web address]) Physical Therapy Current Condition Current Condition Evaluation Date 06/26/21 Treatment Diagnosis s/p L3-4,L4-5, L5-S1 instru; L3-4, 4-5 fusion; difficulty in walking Onset Date 06/25/21 M3 PT-IP Subjective Start: 06/26/21 11:52 Freq: NEEDED Status: Active Protocol: Document 06/29/21 10:45 [facility] (Rec: 06/29/21 11:40 [facility] [id number]) Subjective Physical Therapy Visit Type Type Treatment Note Visit Start Time 10:45 Visit Stop Time 11:08 Total Visit Minutes 23 Number of [employer] Visits 1 Physical Therapy Visit Comments Patient Comments Pt agreeable to work w/ PT. M4 PT-IP Mobility and Gait Start: 06/26/21 11:52 Freq: NEEDED Status: Active Protocol: Document 06/29/21 10:45 [facility] (Rec: 06/29/21 11:40 [facility] [id number]) PT-Bed Mobility Assessment Rolling Type of Rolling Log Rolling,Roll to Left Supine to Sit Supine to Sit Contact Guard Assistance,1 Person Assistance,Bedrails Scooting Scooting to Edge of Bed Contact Guard Assistance PT-Transfer Assessment Sit to and From Stand Sit to and from Stand Contact Guard Assistance,1 Person Assistance,Use of Upper Extremities Equipment Transfer Assistive Device Gait Belt,Front Wheeled Walker Orthotic/Prosthetic Devices or Brace: No Transfers Transfer Destination Bed Transfer Technique amb w/FWW Transfer Ability Level of Assist Contact Guard Assistance,1 Person Assistance,Use of Upper Extremities Comments Mobility Comments Pt in bed upon arrival from therapy and able to recall 3/3 spinal precautions. SBA for logroll and CGA for sup<>sit w / bed rail. Pt then sit<>Stand w/ FWW CGA and ambulated ~60 ft around room CGA. Pt demonstrated good use of FWW and good posture throughout. Pt returned to bed and RN arrived to change dressing. Pt left sitting EOB w/ RN in room. Gait Assessment Gait Gait Assistance Required: Contact Guard Assist,1 Person Assist Distance (Feet) 60 Able to Maintain Weight Bearing Status Yes During Gait Assistive Devices Assistive Device Gait Belt,Front Wheeled Walker Gait Deviations General Gait Pattern Antalgic,Decreased Stride Length,Decreased Feet Clearance,Lateral Trunk Lean Factors Limiting Gait Function Factors Limiting Gait Function Decreased Activity Tolerance, Decreased Strength,Pain,Poor Balance Comments Gait Comments Pt ambulated ~60 ft w/ FWW and CGA, good use of FWW and upright posture. Decreased stride and foot clearance. PT-Balance Assessment Sitting Balance and Reactions Static Sitting Balance Ability Good Dynamic Sitting Balance Ability Good Standing Balance and Reactions Static Standing Balance Ability Good Dynamic Standing Balance Ability Fair Device Used FWW M5 PT-IP Objective Assessments Start: 06/26/21 11:52 Freq: NEEDED Status: Active Protocol: Document 06/26/21 10:16 [facility] (Rec: 06/26/21 12:06 [facility] [id number]) Orientation Orientation/Cognition Level of Alertness Lethargic Orientation Name Safety Awareness Decreased Safety Awareness Memory Description 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 Gross Range of Motion Lower Extremity ROM Assessment Within Functional Limits Strength Lower Extremity Strength Assessment Bilaterally Impaired Hip 3+/5 Knee 3+/5 Comments Strength Comments c/o pain with BLE movement Muscle Tone Muscle Tone WNL Yes M6 PT-IP Treatment Start: 06/26/21 11:52 Freq: NEEDED Status: Active Protocol: Document 06/29/21 10:45 [facility] (Rec: 06/29/21 11:40 [facility] [id number]) Physical Therapy Treatment Exercises Exercises Ankle Pumps Education Education Provided Precautions,Safety M7 PT-IP Assessment and Plan Start: 06/26/21 11:52 Freq: NEEDED Status: Active Protocol: Document 06/29/21 10:45 [facility] (Rec: 06/29/21 11:40 [facility] [id number]) PT Summary Assessment and Plan Potential Rehabilitation Potential Good Status of Condition at Evaluation Evolving Summary Impairments Pain,ROM,Strength,Balance, Coordination,Sensation,Tone, Cognition,Bed Mobility, Transfers,Gait,Activity Tolerance Assessment Summary Pt had good recall and adherence to spinal precautions today. CGA for bed mobility and ambulation w/ FWW. Showed improvement w/ gait and bed mobility overall. She will benefit from outpatient rehab when appropriate to improve strength, balance, and tolerance for activity. Goals Bed Mobility Goal Minimal Assistance Transfer Goal Minimal Assistance,Front Wheeled Walker Gait Goal Minimal Assistance,Front Wheel Walker Gait Distance 50 Other Goals improve bed mobility , transfers and ambulation using FWW 150 ft SBA up/don 3 steps R rail SBA Days to Meet Goals 10 Frequency of Treatment Frequency Of Treatment Twice a Day Treatment Plan Physical Therapy Treatment Plan Bed Mobility Training,Transfer Training,Gait Training, Therapeutic Exercise,Balance Retraining,Post Op Education, Discharge Planning,Hot or Cold Pack,Neuromuscular Re-ed, Coordination Retraining,Manual Therapy Other Recommendations and Next Treatment Further ambulation training, Focus stair training, improve bed mobility and transfers, review precautions. Precautions Lumbar Precautions Log Roll,No Twisting,Limit Bending,Lifting Restriction of 10 lbs,Gait Belt above Incisional Area Weight Bearing Status Weight Bearing Status Weight Bear as Tolerated Recommendations To Nursing Amount of Assist Needed 2 Person Assist Discharge Recommendations PT Discharge Recommendations Home with Assistance,Home with / Assist Available,Home Health,SNF Rehab,Outpatient PT Transportation Needs at Discharge Private Vehicle,Wheelchair/ Cabulance,Stretcher/Ambulance
--- NOTE | 2021-06-29 13:37 | PC.NURSE ---
Discharge Note Patient A&O, VSS, RA. No complaints of pain or discomfort. Dressing changed. Discharge information reviewed with patient, all questions/concerns addressed. No PIV. All belongings packed and given to patient along with discharge packet. Patient taken down via wheelchair to POV.
== END 2021-06-29 13:15 | disposition home or self-care (01) | DRG 454 ==
LOC: OR 11:20 → AC 11:20
PROVIDERS: Admitting Provider Orthopaedic Surgery Orthopaedic Surgery of the Spine; Referring Provider Physical Medicine & Rehabilitation Pain Medicine; Visit Provider Orthopaedic Surgery Orthopaedic Surgery of the Spine
PROC: 0SP004Z Removal of Internal Fixation Device from Lumbar Vertebral Joint, Open Approach (ICD-10-PCS; principal; 2021-06-25 12:45)
DX: T84.038A Mechanical loosening of other internal prosthetic joint, initial encounter (principal); M96.0 Pseudarthrosis after fusion or arthrodesis; M43.16 Spondylolisthesis, lumbar region; M48.061 Spinal stenosis, lumbar region without neurogenic claudication; M47.27 Other spondylosis with radiculopathy, lumbosacral region; M96.1 Postlaminectomy syndrome, not elsewhere classified; F17.200 Nicotine dependence, unspecified, uncomplicated; G47.33 Obstructive sleep apnea (adult) (pediatric); I10 Essential (primary) hypertension; F32.A Depression, unspecified; G89.29 Other chronic pain; F41.9 Anxiety disorder, unspecified; K21.9 Gastro-esophageal reflux disease without esophagitis; Z20.822 Contact with and (suspected) exposure to COVID-19; Z98.1 Arthrodesis status
CPT/HCPCS: 36415; 72100; 76000; 80202; 82565; 82962; 85014; 85018; 87635; 93005; 93010; 94762; 97116; 97162; 97165; 97530; 97535; 99406; C1776; C9803; A9270; C9290; J0171; J0330; J0690; J1170; J2250; J2405; J2704; J3010; J3410; J7613